=== PATIENT | male | born 1950 | race Caucasian/White ===

== ENCOUNTER 2019-01-09 09:07 | Outpatient (CLI) | payer BC, SELFPAY ==
[2019-01-09 12:54] LABS: Anion Gap 7.2 mmol/L (3-11); BUN 18 mg/dL (7-18); CO2 30.8 mmol/L (21.0-32.0); CREATININE 1.05 mg/dL (0.70-1.30); Calcium 9.4 mg/dL (8.5-10.1); Chloride 98 mmol/L (98-107); Cholesterol 186 mg/dL (50-200); Glucose 142 mg/dL (70-100); HDL Cholesterol 26 mg/dL (40-60); LDL CHOLESTEROL 138 mg/dL (<100); Potassium 4.3 mmol/L (3.5-5.1); Sodium 136 mmol/L (136-145); Triglyceride 169 mg/dL (30-150)
[2019-01-10 13:02] LABS: Lyme Ab w Rflx to Lyme Confirm Negative
== END 2019-01-09 09:27 ==
PROVIDERS: PCP Family Medicine; Visit Provider Family Medicine
DX: I10 Essential (primary) hypertension (principal); W57.XXXA Bitten or stung by nonvenomous insect and other nonvenomous arthropods, initial encounter; T14.8XXA Other injury of unspecified body region, initial encounter
CPT/HCPCS: 36415; 80048; 80061; 83721; 86618

== ENCOUNTER 2020-09-02 04:47 | Outpatient (CLI) | payer MEDICARE, SELFPAY ==
[2020-09-02 07:55] LABS: Hemoglobin A1C 6.2 % (<5.7)
[2020-09-02 08:45] LABS: Calculated LDL 160 mg/dL (<100); Cholesterol 213 mg/dL (<200); HDL Cholesterol 27 mg/dL (40-60); Triglyceride 134 mg/dL (<150)
== END 2020-09-02 05:07 ==
PROVIDERS: PCP Nurse Practitioner; Visit Provider Nurse Practitioner
DX: R73.03 Prediabetes (principal); I10 Essential (primary) hypertension
CPT/HCPCS: 36415; 80061; 83036

== ENCOUNTER 2020-09-22 01:53 | Outpatient (CLI) | payer MEDICARE, SELFPAY ==
--- NOTE | 2020-09-22 06:30 | DI.US_ITS ---
APPROVED REPORT EXAM: Comprehensive 2D, Doppler, and color-flow Echocardiogram Patient Location: Out-Patient [employer] Representative: Kelley Cummings RDCS (AE) Indications: Edema, HTN Other Information Study Quality: Adequate Conclusion Left Ventricle : The left ventricle is normal size. The left ventricular systolic function is normal. The left ventricular ejection fraction is within the normal range. There is normal left ventricular wall thickness. There is normal LV segmental wall motion. The left ventricular diastolic function is normal. LVEF is 58%. Right Ventricle : The right ventricle is normal size. The right ventricular systolic function is norm al. The RVSP is 33.2mmHg. Atria : The left atrium size is normal. The right atrium size is normal. Aortic Valve : The aortic valve is normal in structure. Aortic valve is trileaflet. Mild aortic regur gitation. There is no aortic valvular stenosis. Mitral Valve : Moderate mitral annular calcification. Mild mitral regurgitation. No evidence of nick l valve stenosis. Great Vessels : The aortic root is normal in size. The ascending aorta is normal in size. Aortic arch is normal in caliber. IVC is normal in size and collapses >50% with inspiration. Wall motion Left Ventricle The left ventricle is normal size. The left ventricular systolic function is normal. The left ventric ular ejection fraction is within the normal range. There is normal left ventricular wall thickness. T here is normal LV segmental wall motion. The left ventricular diastolic function is normal. There is no ventricular septal defect visualized. LVEF is 58%. Right Ventricle The right ventricle is normal size. The right ventricular systolic function is normal. The RVSP is 33 .2mmHg. Atria The left atrium size is normal. The right atrium size is normal. The interatrial septum is intact wit h no evidence for an atrial septal defect. Aortic Valve The aortic valve is normal in structure. Aortic valve is trileaflet. There is no aortic valvular sten osis. Mild aortic regurgitation. Mitral Valve Moderate mitral annular calcification. No evidence of mitral valve stenosis. Mild mitral regurgitatio n. Tricuspid Valve The tricuspid valve is normal in structure. There is no tricuspid valve stenosis. Trace tricuspid reg urgitation. Pulmonic Valve The pulmonary valve is normal in structure. There is no pulmonic valvular stenosis. There is no pulmo gary valvular regurgitation. Great Vessels The aortic root is normal in size. The ascending aorta is normal in size. Aortic arch is normal in ca liber. IVC is normal in size and collapses >50% with inspiration. Pericardium There is no pericardial effusion. 2D Dimensions IVSD d PLAX 1.01 cm M: 0.6-1.2 LV Vol A2C d MOD 181.6 mL LVPW d PLAX 1.04 cm M: 0.6 - 1.2 LV Vol A4C d MOD 104.7 mL LVID d PLAX 4.52 cm M: 4.2 - 5.8 LA vol/ BSA A2C s A-L 26.3 mL/m2 LVDs 3.10 cm M: 2.5 - 4.0 LA vol/ BSA A4C s A-L 24.0 mL/m2 Ao Root d 2.60 cm M: 3.1 - 3.7 LA Vol/ BSA Biplane s A-L 26.3 mL/m2 RA Area A4C 16.81 cm2 LA Area A4C s MOD 18.13 cm2 RA Vol/ BSA A4C s A-L 21.3 mL/m2 LA Area A2C s MOD 19.83 cm2 Ao Asc Diam d 3.42 cm M: 2.6 - 3.4 LV EF A4C MOD 58.5 % LV EF Teichholz 58.9 % LV EF A2C MOD 58.8 % LVEF (Pereira's) 57.53 % M: 52 - 72 LV EF Biplane MOD 57.5 % LV Volume 109.24 mL M: 62 - 150 SV 86.18 mL LV Volume Index 50.11 mL/m2 M: 34 - 74 SV Index 39.52 mL/m2 LV Vol Biplane MOD 149.8 mL FS 31.05 % M-Mode TAPSE 3.10 cm (M/F) >1.7 LV Diastology MV E' medial 0.081 (>0.07 m/s) E/A Ratio 0.9 LV E/e MED 10.75 (<14) MV E Vmax 0.87 (0.4-1.3 m/s) MV E' lateral 0.094 (>0.1 m/s) MV A Vmax 0.95 (0.4-1.3 m/s) LV E/e LAT 9.20 (<14) MV E/A Ratio 0.89 MV E/E' medial 10.76 MV E/E' lateral 9.22 Aortic Valve LVOT Vmax 1.44 m/s ABIGAIL 2.04 cm2 LVOT Mean Asad. 0.89 m/s AR DT 1688 msec LVOT Peak Grad 8.2 mmHg AR PHT 490 msec LVOT Mean Grad 3.8 mmHg LVOT VTI 0.306 m LVOT Diam s 1.81 cm AoV Vmax 1.81 m/s Velocity Ratio 0.79 AoV Mean Asad. 1.12 m/s AoV Peak Grad 13.1 mmHg AoV Mean Grad 5.9 mmHg AoV VTI 0.330 m Mitral Valve MV DT 229 (160-240 msec) MR Vmax 4.72 m/s MV PHT 66 msec MR VTI 1.442 m MV Area PHT 3.31 cm2 MR Peak Grad 89.0 mmHg MV VTI 0.311 m MR Mean Grad 70.5 mmHg MV VTI Annulus 0.325 m MR PISA Radius 0.54 cm MR EROA 0.13 cm2 MR Aliasing Velocity 0.35 m/s MR PISA 1.80 cm2 Pulmonary Valve PV Vmax 1.10 (0.5-1.5 m/s) RVOT Peak Gr. 3.72 mmHg PV Peak Grad 4.9 mmHg RVOT Mean Gr. 2.10 mmHg PV Mean Grad 2.5 mmHg RVOT VTI 0.172 m PV VTI 0.218 m RVOT Vmax 0.96 m/s Tricuspid Valve TR Peak Grad 30.2 mmHg TR Vmax 2.75 m/s RA Pressure 3.00 mmHg RVSP (TR) 33.2 mmHg
== END 2020-09-22 02:13 ==
PROVIDERS: PCP Nurse Practitioner; Visit Provider Nurse Practitioner
DX: I10 Essential (primary) hypertension (principal); I08.0 Rheumatic disorders of both mitral and aortic valves
CPT/HCPCS: 93306

== ENCOUNTER 2020-12-12 21:00 | Inpatient (IN) | payer MEDICARE, SELFPAY ==
[2020-12-12] VITALS (29 sets, daily range): BP systolic 105–164; BP diastolic 52–124; PULSE 103–125; RESP 8–43; TEMP 36.2; O2SAT 71–98
--- NOTE | 2020-12-12 21:00 | RT.EKG_ITS ---
APPROVED REPORT Exam: Resting ECG Patient Location: E HR:115 bpm ECG Measurements Heart Rate 115 AXIS MI 166 P 0 QRSd 103 QRS 44 QT 329 T 65 QTc 456 Conclusion Sinus tachycardia...rate> 99 Probable left atrial enlargement...P >50mS, <-0.10mV V1 Probable anterior infarct, old...Q >40mS, V2-V5 Borderline ST depression, anterolateral leads...ST <-0.07mV, I aVL V2-V6 Physician: Rate 115, sinus tachycardia, intervals unremarkable, Q-wave is present in lead II, V5 and V6. No chauncey or EKG for comparison. No evidence of STEMI. No significant ST elevation or depression.
--- NOTE | 2020-12-12 21:00 | DI.CT_ITS ---
EXAM: CT CHEST PE CTA CLINICAL HISTORY: hypoxic, sob. TECHNIQUE: Imaging Protocol: Axial CT angiography was performed with multi-slice acquisition and mu lti-planar and/or 3D reconstructions. CONTRAST MATERIAL: Intravenous: Omnipaque 350 Contrast volume:100 mL COMPARISON: CR,XR XR PORTABLE CHEST AP from 12/12/2020 CR,XR XR PORTABLE CHEST AP from 12/12/2020 FINDINGS: The examination is limited due to patient motion artifact. Tracheobronchial tree: Patent where visualized. Pulmonary parenchyma: There is a multifocal predominantly peripheral ground-glass infiltrate in the l ungs. No architectural distortion. Atelectasis and/or scarring in the lung bases. Pulmonary Arteries: No evidence of filling defect to suggest pulmonary emboli. The examination is jose alejandro ewhat limited due to patient motion artifact. Distal pulmonary emboli cannot be reliably excluded. Mediastinum and Bree: There are enlarged mediastinal and hilar lymph nodes. The largest is in the pelayo bcarinal region and measures 2.3 cm. Visualized thyroid gland: Unremarkable. Pleura: Small left pleural effusion. No pneumothorax. Heart: The heart is not dilated. No coronary artery calcifications are seen. Small pericardial effusi on. No evidence of right heart strain. Aorta: Thoracic aorta non-dilated. Mild atherosclerosis. No dissection. Upper abdomen: Unremarkable. Soft tissues: Unremarkable. Bones: Degenerative changes in the spine. IMPRESSION: 1. No definite evidence of central pulmonary embolism. Evaluation for pulmonary embolic disease dist ally is limited by the patient motion artifact. 2. Ground-glass predominantly peripheral infiltrates which are nonspecific but can be seen with atypi stephania pneumonia. Please correlate clinically. 3. Small pleural effusion. 4. Enlarged mediastinal and hilar lymph nodes which are nonspecific. This may be reactive. RADIATION DOSE DELIVERED: 616.74mGy.cm Total DLP DATA REPOSITORY: All CT scans at this facility are submitted to the National Radiology Data Registry (NRDR) Dose Index Registry (DIR) with the [employer] (ACR). RADIATION OPTIMIZATION: All CT scans at this facility use at least one of these dose optimization te chniques: automated exposure control; mA and/or kV adjustment per patient size (includes targeted exa ms where dose is matched to clinical indication); or iterative reconstruction.
--- NOTE | 2020-12-12 21:00 | DI.RAD_ITS ---
EXAM: XR PORTABLE CHEST AP CLINICAL HISTORY: severe sob w/ hypoxia TECHNIQUE: 2D digital imaging was performed. COMPARISON: No exams were available for comparison FINDINGS: MEDIASTINUM: Normal. HEART: Normal. PULMONARY VASCULATURE: Normal. LUNGS: There are patchy ground-glass opacities in both lungs. No focal consolidating infiltrate is s een. PLEURAL SPACE: No pleural effusion or pneumothorax. BONE:Within normal limits for the patient's age. OTHER FINDINGS:Normal. IMPRESSION: Patchy ground-glass opacities suspicious for atypical pneumonia. A follow-up examination is suggeste d to document resolution. DATA REPOSITORY: RADIATION DOSE DELIVERED:
--- NOTE | 2020-12-12 21:12 | W.ED.GENAD ---
Discharge Plan Disposition Patient Disposition: [facility] INPATIENT Condition: Improving Discharge Details Chief Complaint: SOB Clinical Impression: Acute respiratory distress, Atypical pneumonia, Hypoxemia, Mild reactive airways disease, Acute hypokalemia Primary Care Provider: Ryanne Sorensen ED Provider: Willian Rangel Home Meds and New Rx's Prescriptions: No Action atorvastatin 40 mg tablet 40 mg PO DAILY Qty: 90 RF: 3 multivitamin with minerals [One Daily Men's 50+] 1 EACH tablet 1 ea PO DAILY RF: 0 chlorthalidone 25 mg tablet 25 mg PO DAILY Qty: 90 RF: 4 amlodipine 10 mg tablet 10 mg PO DAILY Qty: 90 RF: 3 lisinopril 40 mg tablet 40 mg PO DAILY Qty: 90 RF: 3 Medical Decision Making 70-year-old male with a past medical history of hypertension, high cholesterol, who has never smoked, but does have a who smokes outside of the house, presents today for severe shortness of breath. Patient states that over the last few days he has had very mild not exertional shortness of breath in conjunction with mild intermittent cough which she describes as chronic. However this evening at about 2 PM he became profoundly and suddenly short of breath with notable difficulty breathing. He denies any chest pain, chest tightness, or chest heaviness. He denies ever having had experiences like this before. He denies any history of lung disease. Family history is positive for lung cancer. He denies any tearing or ripping sensation. He denies any other aggravating or relieving factors otherwise. He has received his first Covid shot. No other complaints at this time. No other modifying factors. Physical exam demonstrates notable work of breathing, nearly absent breath sounds throughout, he demonstrates a good decision pulse oximetry plan with an initial reading in the low 70s with a significant work of breathing. 10 L of O2 via nasal cannula were started, and gradual improvement and increased to the 90s with this. Differential is broad, with no history of lung disease it makes COPD/asthma slightly less likely, but still notably on the differential with his history of his smoking. Covid, PE, and less likely CHF is also on the differential. We will evaluate for these etiologies, monitor closely, start the patient on BiPAP, give nebs and Decadron, monitor closely and assess.. 9:21 PM Review of echocardiogram from 3 months ago demonstrates a notably unremarkable echo at that time, no evidence of heart failure, aneurysm, or other significant abnormality. RVSP was slightly elevated at 33. Also, I did speak with his , and his Covid vaccine was just 3 days ago. 11:23 PM CTA negative for pulmonary embolism or dissection. Patchy groundglass opacities concerning for atypical pneumonia are present. Laboratory work-up is not overly concerning. VBG is stable, mild white count, mild left shift with mild lymphopenia. Covid test negative, flu test negative. Potassium 3.1, we have corrected this with 20 of IV potassium 40 of p.o. potassium. BNP normal, no evidence of failure. Troponin normal, EKG unremarkable. Symptoms at this time appear consistent with atypical versus viral pneumonia. After breathing treatments the patient had a notable improvement of his respiratory effort. After Decadron and breathing treatments his oxygenation and respiratory effort improved and he is now on 2 L of oxygen rather than the initial 10 L of supplemental oxygen. Suspect a component of reactive airway disease in conjunction with atypical pneumonia. Patient did not tolerate the BiPAP, and so did not actually use a BiPAP at all. Patient has been started on Rocephin and doxycycline for atypical coverage. Discussed the case with the patient's family/, as well as the hospitalist Dr. Bull. All parties agree with the plan. We will admit for continued antibiotics, monitoring. I have extensively reviewed the treatment plan with the patient. I have addressed all patient concerns at this time. I have also discussed the plan with the admitting physician and they agree with the current assessment and plan and have agreed to assume responsibility for the patient. All parties demonstrate verbal understanding and agreement with our assessment and plan at this time. The documentation in this chart was dictated using [employer] dictation software. Please excuse any dictation errors. EKG 21: 08 Rate 115, sinus tachycardia, intervals unremarkable, Q-wave is present in lead II, V5 and V6. No prior EKG for comparison. No evidence of STEMI. No significant ST elevation or depression. FINDINGS: Lungs: Irregular ground-glass opacities are noted within both lung. The right hemidiaphragm is partially obscured. Pleural spaces: Unremarkable. No pleural effusion. No pneumothorax. Heart/Mediastinum: Unremarkable. No cardiomegaly. Bones/joints: Unremarkable. IMPRESSION: Patchy ground-glass opacities in both lungs suspicious for atypical pneumonia. Follow-up until clear is recommended. Thank you for allowing us to participate in the care of your patient. Dictated and Authenticated by: Lupillo Saul MD 12/12/2020 9:29 PM Eastern Time ([place] & [place]) IMPRESSION: 1. Patchy ground-glass opacities in both lungs in a peripheral upper lobe predominant distribution. These findings are nonspecific and can be seen in the setting of apical pneumonia, other etiologies are not excluded. 2. No evidence of central pulmonary embolism but evaluation distal to the lobar vessels is markedly limited due to motion artifact, small pulmonary emboli cannot be reliably excluded. 3. Trace bilateral pleural effusions, left larger than right. 4. Borderline enlarged mediastinal and hilar lymph nodes, nonspecific, likely reactive. Thank you for allowing us to participate in the care of your patient. Dictated and Authenticated by: Mariana Hadley MD 12/12/2020 10:48 PM Eastern Time ([place] & [place]) HPI General Date/Time Provider Initiated Documentation: 12/12/20 21:01. HPI Narrative: 70-year-old male with a past medical history of hypertension, high cholesterol, who has never smoked, but does have a who smokes outside of the house, presents today for severe shortness of breath. Patient states that over the last few days he has had very mild not exertional shortness of breath in conjunction with mild intermittent cough which she describes as chronic. However this evening at about 2 PM he became profoundly and suddenly short of breath with notable difficulty breathing. He denies any chest pain, chest tightness, or chest heaviness. He denies ever having had experiences like this before. He denies any history of lung disease. Family history is positive for lung cancer. He denies any tearing or ripping sensation. He denies any other aggravating or relieving factors otherwise. He has received his first Covid shot. No other complaints at this time. No other modifying factors. Related Data Home Medications Medication Instructions Recorded Confirmed multivitamin with minerals [One 1 ea PO DAILY 07/31/13 12/12/20 Daily] atorvastatin 40 mg tablet 40 mg PO DAILY #90 tab 09/29/20 12/12/20 amlodipine 10 mg tablet 10 mg PO DAILY #90 tab-cap 10/12/20 12/12/20 chlorthalidone 25 mg tablet 25 mg PO DAILY #90 tab 10/12/20 12/12/20 lisinopril 40 mg tablet 40 mg PO DAILY #90 tab-cap 10/12/20 12/12/20 Previous Rx's Medication Instructions Recorded atorvastatin 40 mg tablet 40 mg PO DAILY #90 tab 09/29/20 amlodipine 10 mg tablet 10 mg PO DAILY #90 tab-cap 10/12/20 chlorthalidone 25 mg tablet 25 mg PO DAILY #90 tab 10/12/20 lisinopril 40 mg tablet 40 mg PO DAILY #90 tab-cap 10/12/20 Allergies Allergy/AdvReac Type Severity Reaction Status Date / Time No Known Allergies Allergy Verified 12/12/20 21:23 Review of Systems All systems reviewed & are unremarkable except as noted in HPI and below PFSH Medical History Acute type A viral hepatitis (08/21/13) Surgical History Excision, Lipoma Family History Mother , 72 Lung cancer Father , 82 Heart disease Sister Depression Brother No problems noted. Sister No problems noted. Sister No problems noted. Son No problems noted. Daughter No problems noted. Social History Smoking/Tobacco Use Status: Former Tobacco Use Quit Date: 05/15/87 Second Hand Exposure: Yes Smoking risk assessment performed?: Yes Alcohol Intake: current Alcohol Intake frequency: 0-2 drinks per day Alcohol type: beer Drug use: Never Substance use type: does not use Details: states lasyt drink in september Household members: spouse and children Housing: house Do you need help understanding health information?: Never Pets and animals: Yes Pets and animals: dog(s) and horse(s) Sexually active: Yes Do you think of yourself as: straight/heterosexual Current gender identity: male What is your relationship status?: How often do you talk on the phone with friends or family?: once per week How often do you get together with friends or relatives?: once per week How often do you attend taoist or taoism services?: 1-3 times per year Do you belong to any clubs or organized social groups?: no Panel score (0-1 are the most socially isolated patients): 1 What type of physical activity do you participate in: none Dennise/Christianity: [employer] Special dennise needs: No Seatbelt use: sometimes Helmet use: No Drive intox or ride w/intox 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 3.ENT: Atraumatic external nose and ears. Moist MM. Neck: Symmetric, trachea midline, No thyromegaly. 4.CVS: +S1/S2, No murmurs or gallops. Peripheral pulses 2+ and equal in all extremities. Brisk capillary refill in all extremities. Radial pulses +2 bilaterally. 5.RESP: Notably labored respiratory effort, nearly absent breath sounds throughout, no wheezes rales or rhonchi secondary to nearly absent breath sounds throughout. No asymmetric chest movement, or hollow tympany. 6.GI: Soft, Nontender/Nondistended, No hepatosplenomegaly. No guarding or rebound. 7.MSK: Normocephalic/Atraumatic, Extremities w/o deformity or ttp No cyanosis or clubbing, Normal movement of all extremities, no calf tenderness, pretibial edema. 8.Skin: Warm, Dry. No rashes or lesions. 9.Neuro: trouble locater II-XII grossly intact. Sensation grossly intact, no focal neurologic deficits. 10.Psych: (AAO) x3. Appropriate mood and affect
[2020-12-12 21:25] LABS: BE (Venous) 0 mmol/L (-2-3); HCO3 (Venous) 26 mmol/L (23-28); O2 Sat (Venous) 87 %; TCO2 (Venous) 24 mmol/L (24-29); pCO2 (Venous) 51 mmHg (41-51); pH (Venous) 7.31 (7.31-7.41); pO2 (Venous) 58 mmHg
[2020-12-12 21:27] LABS: Abs Immature Grans 0.07 10^3/uL (0.0-0.06); Absolute Basophil Count 0.03 10^3/uL (0.0-0.2); Absolute Eosinophil Count 0.36 10^3/uL (0.0-0.7); Absolute Lymphocyte Count 0.96 10^3/uL (1.2-3.4); Absolute Monocyte Count 0.15 10^3/uL (0.1-0.8); Absolute Neutrophil Count 9.71 10^3/uL (1.2-6.7); Basophils % 0.3; Eosinophils % 3.2; HCT 42.2 % (40.0-50.0); HGB 13.5 g/dL (13.5-17.5); Immature Grans % 0.6; Lymphocytes % 8.5; MCH 26.5 pg (27.0-33.0); MCV 82.7 fL (80-95); Monocytes % 1.3; Neutrophils % 86.1; Nucleated RBC 0 %; Platelet Count 212 10^3/uL (130-400); RDW-SD 42.5 fL; WBC 11.28 10^3/uL (4.4-10.8)
[2020-12-12] MEDS: Dexamethasone 10 MG/ML VIAL IVP (21:30)
[2020-12-12] MEDS: Albuterol/Ipratropium 3 ML UPD VIAL 9 ML UPD (21:30)
--- NOTE | 2020-12-12 21:30 | DI.VRAD_ITS ---
PROCEDURE INFORMATION: Exam: XR Chest Exam date and time: 12/12/2020 9:23 PM Age: 70 years old Clinical indication: Shortness of breath; Patient HX: Severe SOB w/ hypoxia TECHNIQUE: Imaging protocol: XR of the chest Views: 1 view. COMPARISON: No relevant prior studies available. FINDINGS: Lungs: Irregular ground-glass opacities are noted within both lung. The right hemidiaphragm is partially obscured. Pleural spaces: Unremarkable. No pleural effusion. No pneumothorax. Heart/Mediastinum: Unremarkable. No cardiomegaly. Bones/joints: Unremarkable. IMPRESSION: Patchy ground-glass opacities in both lungs suspicious for atypical pneumonia. Follow-up until clear is recommended. Dictated and Authenticated by: Lupillo Saul MD. Ordering:YANCY Dorsey MD
[2020-12-12] MEDS: LORazepam 2 MG/ML VIAL 0.5 MG IVP (21:40)
[2020-12-12 21:47] LABS: ALT 37 U/L (16-63); AST 18 U/L (15-37); Albumin 3.1 g/dL (3.4-5.0); Alkaline Phosphatase 209 U/L (46-116); Anion Gap 8.7 mmol/L (3-11); BUN 21 mg/dL (7-18); Bilirubin, Total 0.7 mg/dL (0.2-1.0); CO2 27.3 mmol/L (21.0-32.0); CREATININE 1.6 mg/dL (0.70-1.30); Calcium 8.5 mg/dL (8.5-10.1); Chloride 99 mmol/L (98-107); Estimated GFR 42.95 (mL/min/1.73m2); Glucose 226 mg/dL (74-106); NT-proBNP 168 pg/mL (<300); Potassium 3.1 mmol/L (3.5-5.1); Sodium 135 mmol/L (136-145); Total Protein 8.4 g/dL (6.4-8.2)
[2020-12-12 21:48] LABS: INR 1.1 (0.9-1.1); PTT Activated 22.3 sec (21.0-27.5); Prothrombin Time 11.2 sec (9.3-11.0); Troponin I < 0.05 ng/mL (<0.06)
[2020-12-12 22:05] LABS: COVID-19 PCR Negative (Negative); Influenza A PCR Negative (Negative); Influenza B PCR Negative (Negative); RSV PCR Negative (Negative)
--- NOTE | 2020-12-12 22:07 | RESPIRATORY ---
12/12/20-Pt arrived via private car with SOB. Pt was placed on 10 LPM NC by RN as SPO2 71% on arrival. Pt trialed on Marilyn Bipap for WOB. Pt panicked and ripped mask off. Post 9 mL's Duoneb via [employer] . Pt titrated to 3 LPM NCSPO2 96%.
[2020-12-12 22:09] LABS: Magnesium 1.8 mg/dL (1.8-2.4)
[2020-12-12] MEDS: Omnipaque 350 MG/ML 100 ML BTL IJ (22:26)
[2020-12-12] MEDS: Normal Saline - Diluent 50 ML VIAL IV (22:27)
[2020-12-12] MEDS: POTASSIUM CHLORIDE 20 MEQ/100 ML BAG 50 MEQ IVPB (22:37)
--- NOTE | 2020-12-12 22:48 | DI.VRAD_ITS ---
PROCEDURE INFORMATION: Exam: CT Angiography Chest With Contrast Exam date and time: 12/12/2020 10:21 PM Age: 70 years old Clinical indication: Shortness of breath; Patient HX: SOB, hypoxic TECHNIQUE: Imaging protocol: Computed tomographic angiography of the chest with contrast. 3D rendering (Not supervised by radiologist): MIP and/or 3D reconstructed images were created by the technologist. Contrast material: OMNIPAQUE 350; Contrast volume: 100 ml; Contrast route: INTRAVENOUS (IV); COMPARISON: CR XR PORTABLE CHEST AP 12/12/2020 9:07 PM FINDINGS: Pulmonary arteries: The caliber of the main pulmonary artery is within normal limits. No saddle embolus. No suspicious filling defect to the level of the lobar vessels. However, motion artifact markedly limits evaluation distal to the lobar vessels and numerous filling defects likely represent artifact, small pulmonary emboli cannot be reliably excluded. Aorta: Unremarkable. No aortic aneurysm. No aortic dissection. Lungs: The central airways are patent. Dependent atelectasis in both lower lobes. In addition, there are peripheral predominant ground-glass opacities predominantly affecting the upper lobes, nonspecific. Mild linear atelectasis and/or scarring in the right middle lobe. Pleural spaces: Trace bilateral pleural effusions, left greater than right. No pneumothorax. Heart: Normal heart size with small to moderate pericardial effusion. No evidence of right heart strain. Lymph nodes: Borderline enlarged hilar and subcarinal lymph nodes, nonspecific. Bones/joints: Multilevel degenerative changes of the spine. Soft tissues: Unremarkable. IMPRESSION: 1. Patchy ground-glass opacities in both lungs in a peripheral upper lobe predominant distribution. These findings are nonspecific and can be seen in the setting of apical pneumonia, other etiologies are not excluded. 2. No evidence of central pulmonary embolism but evaluation distal to the lobar vessels is markedly limited due to motion artifact, small pulmonary emboli cannot be reliably excluded. 3. Trace bilateral pleural effusions, left larger than right. 4. Borderline enlarged mediastinal and hilar lymph nodes, nonspecific, likely reactive. Dictated and Authenticated by: Mariana Hadley MD. Ordering:YANCY Dorsey MD
[2020-12-12] MEDS: Potassium Chloride 20 MEQ TABCR 40 MEQ PO (23:03)
[2020-12-12] MEDS: Normal Saline 1,000 ML 150 ML IV (23:03)
--- NOTE | 2020-12-12 23:06 | DI.VRAD_ITS ---
Addendum created by Mariana Hadley MD on 12/12/2020 11:05:58 PM EST: Findings were discussed with ANA CEJA at 12/12/2020 11:04 PM EST. This addendum also serves to correct a voice recognition error in the 1st impression. The phrase apical pneumonia should read atypical pneumonia. Initial report created on 12/12/2020 10:48:16 PM EST: PROCEDURE INFORMATION: Exam: CT Angiography Chest With Contrast Exam date and time: 12/12/2020 10:21 PM Age: 70 years old Clinical indication: Shortness of breath; Patient HX: SOB, hypoxic TECHNIQUE: Imaging protocol: Computed tomographic angiography of the chest with contrast. 3D rendering (Not supervised by radiologist): MIP and/or 3D reconstructed images were created by the technologist. Contrast material: OMNIPAQUE 350; Contrast volume: 100 ml; Contrast route: INTRAVENOUS (IV); COMPARISON: CR XR PORTABLE CHEST AP 12/12/2020 9:07 PM FINDINGS: Pulmonary arteries: The caliber of the main pulmonary artery is within normal limits. No saddle embolus. No suspicious filling defect to the level of the lobar vessels. However, motion artifact markedly limits evaluation distal to the lobar vessels and numerous filling defects likely represent artifact, small pulmonary emboli cannot be reliably excluded. Aorta: Unremarkable. No aortic aneurysm. No aortic dissection. Lungs: The central airways are patent. Dependent atelectasis in both lower lobes. In addition, there are peripheral predominant ground-glass opacities predominantly affecting the upper lobes, nonspecific. Mild linear atelectasis and/or scarring in the right middle lobe. Pleural spaces: Trace bilateral pleural effusions, left greater than right. No pneumothorax. Heart: Normal heart size with small to moderate pericardial effusion. No evidence of right heart strain. Lymph nodes: Borderline enlarged hilar and subcarinal lymph nodes, nonspecific. Bones/joints: Multilevel degenerative changes of the spine. Soft tissues: Unremarkable. IMPRESSION: 1. Patchy ground-glass opacities in both lungs in a peripheral upper lobe predominant distribution. These findings are nonspecific and can be seen in the setting of apical pneumonia, other etiologies are not excluded. 2. No evidence of central pulmonary embolism but evaluation distal to the lobar vessels is markedly limited due to motion artifact, small pulmonary emboli cannot be reliably excluded. 3. Trace bilateral pleural effusions, left larger than right. 4. Borderline enlarged mediastinal and hilar lymph nodes, nonspecific, likely reactive. Dictated and Authenticated by: Mariana Hadley MD. Ordering:YANCY Dorsey MD
[2020-12-12] MEDS: cefTRIAXone 1 GM/50 ML BAG IVPB (23:10)
--- NOTE | 2020-12-12 23:20 | HPE_ITS ---
Date of service: 12/12/20 Time of Service: 23:20 Assessment and Plan Assessment and plan (1) Atypical pneumonia: Start date: 12/12/20 Status: Acute Assessment and plan: This is a 70-year-old gentleman with acute onset of respiratory symptoms with severe hypoxemia and marked decrease in air movement. He responded well to steroids IV and nebulizer treatments. He will be started on IV Rocephin and doxycycline with follow-up imaging as indicated. He was neg ative for Covid, flu and RSV but will be continued on oral dexamethasone with consideration for repeat Covid testing if indicated. Patient is a full code. (2) Hypoxemia: Start date: 12/12/20 Status: Acute Assessment and plan: Acute onset hypoxemia with negative CT for PE but significant patchy infiltrates consistent with probable viral pneumonia. Continue O2 supplement with patient responding to nebulizer treatment and steroids. (3) Bronchospasm with bronchitis, acute: Start date: 12/12/20 Status: Acute Assessment and plan: Acute onset with response to bronchodilators. Continue bronchodilators as needed. Respiratory therapy consultation as indicated. (4) Prediabetes: Status: Chronic Assessment and plan: Patient does have hyperglycemia and this may be exacerbated by steroid use. Glucometers before meals and at bedtime with short acting insulin coverage as indicated. Long-term patient to work on diet and exercise with weight loss over his trunk. History of Present Illness History of Present Illness Chief Complaint: Sudden onset shortness of breath with chronic cough Narrative: This is a 70-year-old male patient who had sudden onset of shortness of breath with hypoxemia the early afternoon prior to admission. He reported to the ED for evaluation was found to be hypoxemic and with little air movement. He was treated with dexamethasone IV and nebulizer treatments with improvement of his oxygenation requiring much less O2 supplement per nasal cannula. He was trialed on BiPAP initially but did not tolerate this treatment. He is a previous smoker having quit in 1985 but his continues to smoke with secondary smoke exposure. He is overweight and deconditioned. He did recently receive his first Covid 19 immunizations injection. He denies any fever or chills but does have a chronic cough. The cough is nonproductive. Evaluation in the ED did reveal patchy infiltrates of the lung consistent with atypical or viral pneumonia and is Covid screening test along with flu and RSV were negative. He has had no exposure to Covid. He denies any chest pain or palpitations. At the time I saw the patient he was improved and able to give accurate history without respiratory distress. His chronic medical problems overall appears stable. See ED note which was reviewed for history and findings. Patient did have a negative CTA for pulmonary emboli. He denies any peripheral edema having edema recently improve off daily beer and with better diet. Review of Systems Narrative: 13 point review of systems otherwise unrevealing or stable. Patient is overweight especially over his trunk but this has slightly improved with lifestyle changes recently. [facility] Medical History Acute type A viral hepatitis (08/21/13) Surgical History Excision, Lipoma Family History Mother , 72 Lung cancer Father , 82 Heart disease Sister Depression Brother No problems noted. Sister No problems noted. Sister No problems noted. Son No problems noted. Daughter No problems noted. Social History Smoking/Tobacco Use Status: Former Tobacco Use Quit Date: 05/15/87 Second Hand Exposure: Yes Smoking risk assessment performed?: Yes Alcohol Intake: current Alcohol Intake frequency: 0-2 drinks per day Alcohol type: beer Drug use: Never Substance use type: does not use Details: states lasyt drink in september Household members: spouse and children Housing: house Do you need help understanding health information?: Never Pets and animals: Yes Pets and animals: dog(s) and horse(s) Sexually active: Yes Do you think of yourself as: straight/heterosexual Current gender identity: male What is your relationship status?: How often do you talk on the phone with friends or family?: once per week How often do you get together with friends or relatives?: once per week How often do you attend mandaen or confucianist services?: 1-3 times per year Do you belong to any clubs or organized social groups?: no Panel score (0-1 are the most socially isolated patients): 1 What type of physical activity do you participate in: none Dennise/Hoahaoism: Nondenominational Special dennise needs: No Seatbelt use: sometimes Helmet use: No Drive intox or ride w/intox non cdl driver: No Do you feel safe at home: Yes Do you feel safe in your relationship?: Yes Meds Home Medications and Allergies Allergies Allergy/AdvReac Type Severity Reaction Status Date / Time No Known Allergies Allergy Verified 12/12/20 21:23 Home Medications Medication Instructions Recorded Confirmed Type multivitamin with minerals [One 1 ea PO DAILY 07/31/13 12/12/20 History Daily] atorvastatin 40 mg tablet 40 mg PO DAILY #90 tab 09/29/20 12/12/20 Rx amlodipine 10 mg tablet 10 mg PO DAILY #90 tab-cap 10/12/20 12/12/20 Rx chlorthalidone 25 mg tablet 25 mg PO DAILY #90 tab 10/12/20 12/12/20 Rx lisinopril 40 mg tablet 40 mg PO DAILY #90 tab-cap 10/12/20 12/12/20 Rx Exam Narrative Exam Narrative: General: Patient appears appropriate for age, in no acute distress and alert and oriented x3. He is breathing comfortably on low-flow nasal cannula oxygen supplementation. HEENT: Normocephalic, eyes with pupils equal and reactive to light symmetrically, extraocular movement intact and sclera anicteric. Oropharynx with normal, moist mucosa. Neck: Supple without JVD. Back: Stooped posture without CVA tenderness. Lungs: Fair aeration with no focalizing rales or rhonchi. No increased expiratory phase or expiratory wheeze. Heart: Regular rate and rhythm with no appreciable murmurs or gallops. Abdomen: Obese contour, soft and nontender to palpation with no palpable hepatosplenomegaly. Bowel sounds positive in all quadrants. Genitalia/rectal: Exam deferred. Extremities: Nonpitting edema with no cyanosis or clubbing. Joints have fair range of motion. Skin: Normal color, warm and dry. Neuro: Cranial nerves II through XII gross intact, no focalizing motor deficits. Psych: Normal mood and affect with no abnormal thought processes. Remote and recent memory intact. Results Imaging Imaging Studies: Exam: XR Chest Exam date and time: 12/12/2020 9:23 PM Age: 70 years old Clinical indication: Shortness of breath; Patient HX: Severe SOB w/ hypoxia TECHNIQUE: Imaging protocol: XR of the chest Views: 1 view. COMPARISON: No relevant prior studies available. FINDINGS: Lungs: Irregular ground-glass opacities are noted within both lung. The right hemidiaphragm is partially obscured. Pleural spaces: Unremarkable. No pleural effusion. No pneumothorax. Heart/Mediastinum: Unremarkable. No cardiomegaly. Bones/joints: Unremarkable. IMPRESSION: Patchy ground-glass opacities in both lungs suspicious for atypical pneumonia. Follow-up until clear is recommended. Dictated and Authenticated by: Lupillo Saul MD. EXAM: Comprehensive 2D, Doppler, and color-flow Echocardiogram Patient Location: Out-Patient Placement Officer: Kelley Cummings RDCS (AE) Indications: Edema, HTN Other Information Study Quality: Adequate Conclusion Left Ventricle : The left ventricle is normal size. The left ventricular systolic function is normal. The left ventricular ejection fraction is within the normal range. There is normal left ventricular wall thickness. There is normal LV segmental wall motion. The left ventricular diastolic function is normal. LVEF is 58%. Right Ventricle : The right ventricle is normal size. The right ventricular systolic function is normal. The RVSP is 33.2mmHg. Atria : The left atrium size is normal. The right atrium size is normal. Aortic Valve : The aortic valve is normal in structure. Aortic valve is trileaflet. Mild aortic regurgitation. There is no aortic valvular stenosis. Mitral Valve : Moderate mitral annular calcification. Mild mitral regurgitation. No evidence of mitral valve stenosis. Great Vessels : The aortic root is normal in size. The ascending aorta is normal in size. Aortic arch is normal in caliber. IVC is normal in size and collapses >50% with inspiration. Labs Result diagrams: 12/13/20 14:58 12/13/20 07:15 Labs: Laboratory Results - last 24 hr 12/12/20 12/12/20 12/12/20 21:12 21:12 21:12 WBC 11.28 H RBC 5.10 Hgb 13.5 Hct 42.2 MCV 82.7 MCH 26.5 L MCHC 32.0 RDW 14.0 Plt Count 212 MPV 9.0 Immature Gran % 0.6 Neutrophils % 86.1 Lymphocytes % 8.5 Monocytes % 1.3 Eosinophils % 3.2 Basophils % 0.3 Nucleated RBC % 0 Absolute Neutrophils 9.71 H Absolute Lymphocytes 0.96 L Absolute Monocytes 0.15 Absolute Eosinophils 0.36 Absolute Basophils 0.03 PT 11.2 H INR 1.1 APTT 22.3 VBG pH VBG pCO2 VBG pO2 VBG HCO3 VBG Total CO2 VBG O2 Saturation VBG Base Excess Sodium 135 L Potassium 3.1 L Chloride 99 Carbon Dioxide 27.3 Anion Gap 8.7 BUN 21 H Creatinine 1.6 H Estimated GFR/1.73 m2 42.95 Glucose 226 H Calcium 8.5 Magnesium Total Bilirubin 0.7 AST 18 ALT 37 Alkaline Phosphatase 209 H Troponin I < 0.05 NT-Pro-B Natriuret Pep 168 Total Protein 8.4 H Albumin 3.1 L COVID-19 Source SARS-CoV-2 (PCR) Influenza Type A (PCR) Influenza Type B (PCR) RSV (PCR) 12/12/20 12/12/20 12/12/20 21:12 21:12 21:37 WBC RBC Hgb Hct MCV MCH MCHC RDW Plt Count MPV Immature Gran % Neutrophils % Lymphocytes % Monocytes % Eosinophils % Basophils % Nucleated RBC % Absolute Neutrophils Absolute Lymphocytes Absolute Monocytes Absolute Eosinophils Absolute Basophils PT INR APTT VBG pH 7.31 VBG pCO2 51 VBG pO2 58 VBG HCO3 26 VBG Total CO2 24 VBG O2 Saturation 87 VBG Base Excess 0 Sodium Potassium Chloride Carbon Dioxide Anion Gap BUN Creatinine Estimated GFR/1.73 m2 Glucose Calcium Magnesium 1.8 Total Bilirubin AST ALT Alkaline Phosphatase Troponin I NT-Pro-B Natriuret Pep Total Protein Albumin COVID-19 Source Nasopharyx SARS-CoV-2 (PCR) Negative Influenza Type A (PCR) Negative Influenza Type B (PCR) Negative RSV (PCR) Negative Last Vital Signs Temp 36.2 C L 12/12/20 21:16 Pulse 113 H 12/12/20 23:00 Resp 30 H 12/12/20 23:01 BP 106/60 12/12/20 23:00 Pulse Ox 93 12/12/20 23:01 COVID-19 Screening Have you, or household traveled for leisure in last 14 days?: No Had IN PERSON contact w/suspected or confirmed C-19 person: No
[2020-12-12] MEDS: DOXYCYCLINE 100 MG in Normal Saline 100 ML IVPB (23:49)
[2020-12-13] VITALS (18 sets, daily range): BP systolic 124–147; BP diastolic 67–81; PULSE 70–115; RESP 1–22; TEMP 36.5–37.3; O2SAT 95–100
[2020-12-13 00:58] LABS: Troponin I < 0.05 ng/mL (<0.06)
[2020-12-13] MEDS: Normal Saline 1,000 ML 150 ML IV ×2 (01:35→08:33)
[2020-12-13] MEDS: Albuterol/Ipratropium 3 ML UPD VIAL UPD ×4 (01:36→18:37)
[2020-12-13] MEDS: Enoxaparin 40 MG/0.4 ML SYR SC (01:36)
[2020-12-13 07:23] LABS: Abs Immature Grans 0.17 10^3/uL (0.0-0.06); Absolute Basophil Count 0.04 10^3/uL (0.0-0.2); Absolute Monocyte Count 0.82 10^3/uL (0.1-0.8); Basophils % 0.2; Eosinophils % 0.2; HCT 35.1 % (40.0-50.0); HGB 11.2 g/dL (13.5-17.5); Immature Grans % 0.9; Lymphocytes % 2.5; MCH 26.3 pg (27.0-33.0); MCHC 31.9 % (32.0-36.0); MCV 82.4 fL (80-95); MPV 9.4 fL (8.0-11.0); Monocytes % 4.3; Neutrophils % 91.9; Nucleated RBC 0 %; Platelet Count 188 10^3/uL (130-400); RBC 4.26 10^6/uL (4.36-5.78); RDW 14.4 % (11.8-14.1); RDW-SD 42.7 fL; WBC 19.05 10^3/uL (4.4-10.8)
[2020-12-13 07:35] LABS: Absolute Eosinophil Count 0.04 10^3/uL (0.0-0.7); Absolute Lymphocyte Count 0.48 10^3/uL (1.2-3.4); Absolute Neutrophil Count 17.51 10^3/uL (1.2-6.7)
[2020-12-13 07:39] LABS: ALT 35 U/L (16-63); AST 16 U/L (15-37); Albumin 2.5 g/dL (3.4-5.0); Alkaline Phosphatase 152 U/L (46-116); Anion Gap 8.8 mmol/L (3-11); BUN 21 mg/dL (7-18); Bilirubin, Total 0.7 mg/dL (0.2-1.0); CO2 23.2 mmol/L (21.0-32.0); CREATININE 1.5 mg/dL (0.70-1.30); Calcium 7.7 mg/dL (8.5-10.1); Chloride 101 mmol/L (98-107); Estimated GFR 46.27 (mL/min/1.73m2); Glucose 270 mg/dL (74-106); Potassium 4.6 mmol/L (3.5-5.1); Sodium 133 mmol/L (136-145); Total Protein 7.1 g/dL (6.4-8.2)
[2020-12-13] MEDS: Insulin Aspart 300 UNITS/3 ML PEN SC ×3 (08:21→21:40)
[2020-12-13] MEDS: Multivitamin TAB 1 TAB PO (08:21)
[2020-12-13] MEDS: amLODIPine 10 MG TAB PO (08:22)
[2020-12-13] MEDS: Dexamethasone 4 MG TAB 10 MG PO (08:22)
--- NOTE | 2020-12-13 08:59 | PDOC.CMIN ---
- If Service Date Differs Date of service: 12/13/20 Time of Service: 08:59 Care Management Initial Assess REASON FOR HOSPITALIZATION:: Atypical pneumonia PAST MEDICAL HISTORY/PAST SURGICAL HISTORY:: Medical History . Acute type A viral hepatitis (08/21/13). Surgical History . Excision, Lipoma PREVIOUS FUNCTIONAL STATUS/SOCIAL/FAMILY SUPPORTS:: Jens lives in [place], [place] with his and 2 children ages 5 and 8. 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 Noe is independent at baseline and remains active. CURRENT FUNCTIONAL STATUS:: Noe was sitting up in a chair when CM met with him. He was agreeable to conversation and engaged readily with CM. Noe had questions about insurance and the portal and advanced directives which CM answered. Noe was given 2 copies of the [place]. AD forms and will CM offered assist with their completion if Noe wishes. ADVANCE DIRECTIVES:: none on file Has patient been provided with info about the portal/API?: Yes Did the patient sign up for the portal?: No CODE STATUS:: Full Code INSURANCE COVERAGE / FINANCIAL ISSUES:: Medicare CURRENT HOME/COMMUNITY SERVICES/EQUIPMENT:: none PRIMARY CARE PHYSICIAN:: Ryanne Sorensen POTENTIAL DISCHARGE NEEDS:: follow up with PCP and discharge plan of care PATIENT/FAMILY EDUCATION NEEDS:: Discharge plan, limitations, follow up plan, Ask Me Three TRANSPORTATION:: via private vehicle with family PLAN:: Noe will be discharged home with no new services. He will follow up with his PCP and discharge plan of care and transport with family. CM will continue to support Noe and his family and assess for discharge planning concerns.
[2020-12-13] MEDS: DOXYCYCLINE 100 MG in Normal Saline 100 ML IVPB (11:58)
--- NOTE | 2020-12-13 13:47 | W.PM.PROGNOT ---
Date of Service Date of service: 12/13/20 Time of Service: 13:48 Assessment and Plan Assessment and plan (1) Atypical pneumonia: Status: Acute Assessment and plan: Clinically improving on doxycycline/ceftriaxone. Will continue. Obtain sputum culture. COVID-19 ruled out. (2) Bronchospasm with bronchitis, acute: Status: Acute Assessment and plan: As above; Additionally, continue nebs, decadron; add mucinex. I have ordered acapella. (3) Hypoxemia: Status: Resolved Assessment and plan: Not requiring oxygen today. (4) Acute anemia: Status: Acute Assessment and plan: Likely dilutional. However, will hold chemical dvt ppx and check anemia studies. Recheck H/H now. (5) Atypical chest pain: Status: Resolved Assessment and plan: Ruled out for ACS by serial troponins. Will need outpatient stress test. (6) DVT prophylaxis: Status: Acute Assessment and plan: TEDs/SCDS. Hold chemical DVT ppx in presence of anemia which we are working up (7) Discharge planning issues: Status: Acute Assessment and plan: Full code Anticipate discharge home within the next 48 hrs. Subjective Subjective Interval history since last seen: Mr Sellers feels a lot better as far as his breathing but still does not feel back to normal. He is still short of breath. He is having a cough productive of white sputum. He is on room air. He denies dizziness, chest pain now (though he does report a brief episode of chest pain last night). He denies any chest pain now. He has not had a stress test. He denies n/v/abdominal pain. Exam Narrative Exam Narrative: General: Elderly male, sitting in a chair, on room air. HEENT: EOMI, MMM Heart: RRR, no m/r/g, no chest wall tenderness Lungs: CTAB Abdomen: soft, nontender, nondistended Extremities: +1 B edema to ankles (patient's chronic edema) Objective Last Vital Signs Temp 36.5 C 12/13/20 11:20 Pulse 95 H 12/13/20 12:28 Resp 16 12/13/20 12:28 BP 147/68 H 12/13/20 11:20 Pulse Ox 100 12/13/20 12:28 Laboratory Results - last 24 hr 12/12/20 12/12/20 12/12/20 21:12 21:12 21:12 WBC 11.28 H RBC 5.10 Hgb 13.5 Hct 42.2 MCV 82.7 MCH 26.5 L MCHC 32.0 RDW 14.0 Plt Count 212 MPV 9.0 Immature Gran % 0.6 Neutrophils % 86.1 Lymphocytes % 8.5 Monocytes % 1.3 Eosinophils % 3.2 Basophils % 0.3 Nucleated RBC % 0 Absolute Neutrophils 9.71 H Absolute Lymphocytes 0.96 L Absolute Monocytes 0.15 Absolute Eosinophils 0.36 Absolute Basophils 0.03 PT 11.2 H INR 1.1 APTT 22.3 VBG pH VBG pCO2 VBG pO2 VBG HCO3 VBG Total CO2 VBG O2 Saturation VBG Base Excess Sodium 135 L Potassium 3.1 L Chloride 99 Carbon Dioxide 27.3 Anion Gap 8.7 BUN 21 H Creatinine 1.6 H Estimated GFR/1.73 m2 42.95 Glucose 226 H Calcium 8.5 Magnesium Total Bilirubin 0.7 AST 18 ALT 37 Alkaline Phosphatase 209 H Troponin I < 0.05 NT-Pro-B Natriuret Pep 168 Total Protein 8.4 H Albumin 3.1 L COVID-19 Source SARS-CoV-2 (PCR) Influenza Type A (PCR) Influenza Type B (PCR) RSV (PCR) 12/12/20 12/12/20 12/12/20 21:12 21:12 21:37 WBC RBC Hgb Hct MCV MCH MCHC RDW Plt Count MPV Immature Gran % Neutrophils % Lymphocytes % Monocytes % Eosinophils % Basophils % Nucleated RBC % Absolute Neutrophils Absolute Lymphocytes Absolute Monocytes Absolute Eosinophils Absolute Basophils PT INR APTT VBG pH 7.31 VBG pCO2 51 VBG pO2 58 VBG HCO3 26 VBG Total CO2 24 VBG O2 Saturation 87 VBG Base Excess 0 Sodium Potassium Chloride Carbon Dioxide Anion Gap BUN Creatinine Estimated GFR/1.73 m2 Glucose Calcium Magnesium 1.8 Total Bilirubin AST ALT Alkaline Phosphatase Troponin I NT-Pro-B Natriuret Pep Total Protein Albumin COVID-19 Source Nasopharyx SARS-CoV-2 (PCR) Negative Influenza Type A (PCR) Negative Influenza Type B (PCR) Negative RSV (PCR) Negative 12/13/20 12/13/20 12/13/20 00:35 07:15 07:15 WBC 19.05 H D RBC 4.26 L Hgb 11.2 L D Hct 35.1 L MCV 82.4 MCH 26.3 L MCHC 31.9 L RDW 14.4 H Plt Count 188 MPV 9.4 Immature Gran % 0.9 Neutrophils % 91.9 Lymphocytes % 2.5 Monocytes % 4.3 Eosinophils % 0.2 Basophils % 0.2 Nucleated RBC % 0 Absolute Neutrophils 17.51 H Absolute Lymphocytes 0.48 L Absolute Monocytes 0.82 H Absolute Eosinophils 0.04 Absolute Basophils 0.04 PT INR APTT VBG pH VBG pCO2 VBG pO2 VBG HCO3 VBG Total CO2 VBG O2 Saturation VBG Base Excess Sodium 133 L Potassium 4.6 D Chloride 101 Carbon Dioxide 23.2 Anion Gap 8.8 BUN 21 H Creatinine 1.5 H Estimated GFR/1.73 m2 46.27 Glucose 270 H Calcium 7.7 L Magnesium Total Bilirubin 0.7 AST 16 ALT 35 Alkaline Phosphatase 152 H Troponin I < 0.05 NT-Pro-B Natriuret Pep Total Protein 7.1 Albumin 2.5 L COVID-19 Source SARS-CoV-2 (PCR) Influenza Type A (PCR) Influenza Type B (PCR) RSV (PCR)
[2020-12-13] MEDS: guaiFENesin 600 MG TABCR PO ×2 (14:13→20:05)
--- NOTE | 2020-12-13 14:33 | W.INDIABCONS ---
Date of service: 12/13/20 Time of Service: 14:33 Diabetes Inpatient Consult DESCRIPTION/ASSESSMENT: 70 year old male admitted with PNA. BMI indicates class 2 obesity, recently dx with pre DM. Most recent A1C: 6.2% indicating moderately elevated BS. INTERVENTION: Educated pt on how to reduce blood sugars by following lower carb diet and increasing daily activity to meet 150 minutes weekly. Goal of 10% wieght loss in next 6 months. Pt receptive to information. Provided educational materials and contact information for outpatient services. PLAN: continue CHO diet, will follow po intake, labs and weight Time Spent in Nutritional Counseling and Treatment: 20
[2020-12-13 15:23] LABS: HCT 33.7 % (40.0-50.0)
[2020-12-13] MEDS: Pantoprazole 40 MG TABCR PO (15:59)
[2020-12-13] MEDS: Atorvastatin 40 MG TAB PO (20:05)
[2020-12-13] MEDS: cefTRIAXone 1 GM/50 ML BAG IVPB (20:06)
[2020-12-14] MEDS: DOXYCYCLINE 100 MG in Normal Saline 100 ML IVPB ×2 (00:21→12:18)
[2020-12-14] MEDS: Albuterol/Ipratropium 3 ML UPD VIAL UPD ×3 (00:21→11:36)
[2020-12-14 03:27] VITALS: BP 126/64; PULSE 76; RESP 18; TEMP 37; O2SAT 96
[2020-12-14 07:07] LABS: Abs Immature Grans 0.11 10^3/uL (0.0-0.06); Absolute Basophil Count 0.04 10^3/uL (0.0-0.2); Absolute Eosinophil Count 0.06 10^3/uL (0.0-0.7); Absolute Lymphocyte Count 1.43 10^3/uL (1.2-3.4); Absolute Neutrophil Count 11.35 10^3/uL (1.2-6.7); Basophils % 0.3; Eosinophils % 0.4; HCT 32.6 % (40.0-50.0); HGB 10.6 g/dL (13.5-17.5); Immature Grans % 0.8; Lymphocytes % 10.3; MCH 26.4 pg (27.0-33.0); MCHC 32.5 % (32.0-36.0); MCV 81.3 fL (80-95); MPV 9.6 fL (8.0-11.0); Monocytes % 6.7; Neutrophils % 81.5; Nucleated RBC 0 %; Platelet Count 198 10^3/uL (130-400); RBC 4.01 10^6/uL (4.36-5.78); RDW 14.1 % (11.8-14.1); RDW-SD 41.2 fL; WBC 13.93 10^3/uL (4.4-10.8)
[2020-12-14 07:11] LABS: Absolute Monocyte Count 0.93 10^3/uL (0.1-0.8)
[2020-12-14 07:30] LABS: Anion Gap 8.6 mmol/L (3-11); BUN 31 mg/dL (7-18); CO2 22.4 mmol/L (21.0-32.0); CREATININE 1.3 mg/dL (0.70-1.30); Calcium 8.2 mg/dL (8.5-10.1); Chloride 103 mmol/L (98-107); Estimated GFR 54.57 (mL/min/1.73m2); Glucose 174 mg/dL (74-106); Sodium 134 mmol/L (136-145)
[2020-12-14 08:00] VITALS: BP 140/71; PULSE 92; RESP 20; TEMP 36.9; O2SAT 94
[2020-12-14 08:00] LABS: Ferritin 407 ng/mL (26-388); Folate 12.7 ng/mL (8.6-20.0); Vitamin B12 452 pg/mL (193-986)
[2020-12-14] MEDS: amLODIPine 10 MG TAB PO (08:17)
[2020-12-14] MEDS: Dexamethasone 4 MG TAB 10 MG PO (08:18)
[2020-12-14] MEDS: Multivitamin TAB 1 TAB PO (08:18)
[2020-12-14] MEDS: Pantoprazole 40 MG TABCR PO (08:18)
[2020-12-14] MEDS: guaiFENesin 600 MG TABCR PO (08:19)
[2020-12-14] MEDS: Insulin Aspart 300 UNITS/3 ML PEN SC ×2 (08:21→12:17)
[2020-12-14 08:41] LABS: Iron 77 ug/dL (65-175); Total Iron Binding Capacity 188 ug/dL (250-450); Transferrin Sat 41 % (20-55)
[2020-12-14 10:36] VITALS: PULSE 122; PULSE 86; PULSE 87; RESP 16; RESP 20; RESP 28; O2SAT 95; O2SAT 99
[2020-12-14 10:58] VITALS: BP 137/72; PULSE 94; RESP 18; TEMP 37.4; O2SAT 94
[2020-12-14 11:36] VITALS: PULSE 91; RESP 1; RESP 20; RESP 8; O2SAT 100
[2020-12-14 11:48] VITALS: PULSE 90; RESP 1; RESP 16; RESP 8; O2SAT 100
--- NOTE | 2020-12-14 14:39 | DSE_ITS ---
Date of service: 12/14/20 Time of Service: 14:40 DS: Diagnosis Discharge Diagnosis (1) Atypical pneumonia: Status: Acute (2) Hypoxemia: Status: Resolved (3) Bronchospasm with bronchitis, acute: Status: Acute (4) Acute kidney injury: Status: Resolved (5) Atypical chest pain: Status: Resolved (6) Prediabetes: Status: Chronic (7) Essential hypertension: Status: Chronic (8) B12 deficiency anemia: Status: Acute (9) COVID-19 ruled out by laboratory testing: Status: Ruled-out Discharge Plan Disposition Patient Disposition: HOME Condition: Improving Discharge Details Reason For Visit: ATYPICAL PNUEMONIA, HYPOXEMIA, BRONCHOSPASM Admit Date/Time: 12/12/20 23:25 Admit Provider: Sridhar Bull Attending Provider: Sridhar Bull Primary Care Provider: [facility] Hospital Course: Mr Sellers is a 70 year old male with PMHx of prediabetes, hypertension, hyperlipidemia, past tobacco abuse, who was admitted to [facility] hospitalist service on 12/12/2020 with shortness of breath and cough productive of yellow sputum. His ED workup revealed atypical pneumonia with hypoxia down to 71 on room air. He ruled out for COVID-19 with a negative PCR and, in fact, had received his first dose of the Moderna vaccine 3 days prior to his presentation. He was initiated on empiric ceftriaxone and doxycycline as well as steroids and nebulizer treatments. His blood and sputum cultures remain negative to date. With this therapy, the patient markedly improved and was able to be weaned off of oxygen on by 12/13/2020. Ambulatory pulse ox on day of discharge also demonstrates O2 sats in the 90s. PCP is to repeat outpatient CXR in 4-6 weeks to document resolution of disease. The patient did have acute kidney injury for which his grace-i and chlorthalidone were held and he received IVF. This has now resolved. The patient is being instructed to resume them one at a time. Of note, the patient also had a short episode of atypical L-sided chest pain. He ruled out for ACS. As this was associated with acute respiratory illness, he will need to wait until this has completely resolved before pursuing outpatient ischemic workup, which we will defer to the PCP to order. He is medically stable to be discharged home today. Care for patient as well as completion of his discharge summary on day of discharge took 45 minutes. Home Meds and New Rx's Prescriptions: New cyanocobalamin (vitamin B-12) [Vitamin B-12] 500 mcg Tablet 500 mcg PO DAILY Qty: 30 RF: 0 guaifenesin [Mucinex] 600 mg Tablet Extended Release 12hr 600 mg PO BID PRN PRN (Reason: cough) Qty: 20 RF: 0 cefpodoxime 200 mg tablet 200 mg PO BID Qty: 6 RF: 0 doxycycline hyclate 100 mg tablet 100 mg PO BID Qty: 6 RF: 0 albuterol sulfate 90 mcg/actuation HFA aerosol inhaler 2 puff inhalation Q4H PRN PRN (Reason: shortness of breath or wheezing) Qty: 18 RF: 0 prednisone 20 mg tablet 40 mg PO DAILY Qty: 6 RF: 0 omeprazole 20 mg tablet,delayed release (DR/EC) 20 mg PO DAILY Qty: 7 RF: 0 Continued atorvastatin 40 mg tablet 40 mg PO DAILY Qty: 90 RF: 3 multivitamin with minerals [One Daily Men's 50+] 1 EACH tablet 1 ea PO DAILY RF: 0 chlorthalidone 25 mg tablet 25 mg PO DAILY Qty: 90 RF: 4 amlodipine 10 mg tablet 10 mg PO DAILY Qty: 90 RF: 3 lisinopril 40 mg tablet 40 mg PO DAILY Qty: 90 RF: 3 Discharge Instructions Instructions: Albuterol (By breathing), Prednisone (By mouth), Omeprazole (By mouth), Cefpodoxime Proxetil (By mouth), Doxycycline (By injection), Bacterial Pneumonia (DC) Additional Instructions: Finish your antibiotics and prednisone as prescribed. Follow up with your PCP in 1-2 weeks. Return to the hospital if you are feeling worse, if you have any chest pain, shortness of breath, nausea. Resume your lisinopril tomorrow and your chlorthalidone on 12/17/2020. Stand Alone Forms: Nursing Discharge Form Referrals: Ryanne Sorensen NP [Primary Care Provider] - Activity:: Activity as Tolerated Equipment/Supplies:: No Equipment Needed Diet:: Carb Counting Discharge Orders Discharge Orders: Discharge Order (Routine); Ordered 12/14/20 Ordered By: Bertha Garcia DS: Summary Time Spent with Patient providing and/or coordinating discharge services: Greater than 30 minutes Status at Discharge Functional status at discharge: independent ambulation Overall status at discharge: patient is progressing back to baseline Mental Status: mental status grossly normal Speech and Movement: speech and movement normal Mood: congruent mood Affect: normal affect Exam Narrative Exam Narrative: General: Elderly male, sitting in a chair, on room air, looks better than yesterday. HEENT: EOMI, MMM Heart: RRR, no m/r/g Lungs: CTAB - improved aeration bilaterally Abdomen: soft, nontender, nondistended Extremities: +1 B edema to ankles (patient's chronic edema) Psych Mental Status: mental status grossly normal Speech and Movement: speech and movement normal Mood: congruent mood Affect: normal affect DS: Data Vitals/I&O Vitals and I&O: Vital Signs Temperature 37.4 C 12/14/20 10:58 Temperature Source Tympanic 12/14/20 10:58 Pulse 90 12/14/20 11:48 Pulse Rhythm Regular 12/14/20 13:09 Pulse 107 H 12/12/20 23:50 Respiratory Rate 16 12/14/20 11:48 Respiratory Effort Non-Labored 12/14/20 13:09 Respiratory Depth Normal 12/14/20 13:09 Respiratory Pattern Normal 12/14/20 13:09 Blood Pressure 137/72 12/14/20 10:58 Blood Pressure Mean 74 12/12/20 23:45 Pulse Oximetry 100 12/14/20 11:48 Oxygen Delivery Method Room Air 12/14/20 11:36 Oxygen Flow Rate 0 12/14/20 11:36 Pain Level 0 12/14/20 10:58 Comment 12/13/20 03:45 Intake & Output 12/13/20 12/14/20 12/14/20 23:59 11:59 23:59 Intake Total 1580 / 5620 100 / 820 720 / 820 Output Total 200 / 600 201 / 201 Balance 1380 / 5020 -101 / 619 720 / 619 Weight 106.9 kg Intake: IV 1100 / 3310 100 / 100 Oral 480 / 2310 720 / 720 Output: Urine 200 / 600 201 / 201 Other: Urine Color Light Jyoti Yellow Urine Appearance Clear Clear Clear Urine Odor None Normal Comment patient reports Voiding Methods Urinal Toilet Data Completed and Pending Completed studies during hospitalization [Text1]: CXR: Patchy ground-glass opacities suspicious for atypical pneumonia. A follow-up examination is suggested to document resolution. CT chest: 1. No definite evidence of central pulmonary embolism. Evaluation for pulmonary embolic disease distally is limited by the patient motion artifact. 2. Ground-glass predominantly peripheral infiltrates which are nonspecific but can be seen with atypical pneumonia. Please correlate clinically. 3. Small pleural effusion. 4. Enlarged mediastinal and hilar lymph nodes which are nonspecific. This may be reactive. Labs on day of discharge: Labs from last 24 hours 12/14/20 12/14/20 12/14/20 06:50 06:50 06:50 WBC 13.93 H RBC 4.01 L Hgb 10.6 L Hct 32.6 L MCV 81.3 MCH 26.4 L MCHC 32.5 RDW 14.1 Plt Count 198 MPV 9.6 Immature Gran % 0.8 Neutrophils % 81.5 Lymphocytes % 10.3 Monocytes % 6.7 Eosinophils % 0.4 Basophils % 0.3 Nucleated RBC % 0 Absolute Neutrophils 11.35 H Absolute Lymphocytes 1.43 Absolute Monocytes 0.93 H Absolute Eosinophils 0.06 Absolute Basophils 0.04 Sodium 134 L Potassium 4.0 Chloride 103 Carbon Dioxide 22.4 Anion Gap 8.6 BUN 31 H D Creatinine 1.3 Estimated GFR/1.73 m2 54.57 Glucose 174 H D Calcium 8.2 L Magnesium 2.0 Iron TIBC Transferrin % Sat Ferritin 407 H Vitamin B12 452 Folate 12.7 12/14/20 12/13/20 06:50 14:58 WBC RBC Hgb 11.0 L Hct 33.7 L MCV MCH MCHC RDW Plt Count MPV Immature Gran % Neutrophils % Lymphocytes % Monocytes % Eosinophils % Basophils % Nucleated RBC % Absolute Neutrophils Absolute Lymphocytes Absolute Monocytes Absolute Eosinophils Absolute Basophils Sodium Potassium Chloride Carbon Dioxide Anion Gap BUN Creatinine Estimated GFR/1.73 m2 Glucose Calcium Magnesium Iron 77 TIBC 188 L Transferrin % Sat 41 Ferritin Vitamin B12 Folate Preliminary micro results at discharge 12/12/20 23:16 Blood Culture - Preliminary Blood NO GROWTH 24 HOURS 12/12/20 21:17 Blood Culture - Preliminary Blood NO GROWTH 24 HOURS [facility] Medical History (Updated 12/14/20 @ 14:46 by Bertha Garcia MD) Acute type A viral hepatitis (08/21/13) Essential hypertension (07/30/13) Hyperlipidemia Obesity (BMI 35.0-39.9 without comorbidity) Prediabetes Surgical History Excision, Lipoma Family History Mother , 72 Lung cancer Father , 82 Heart disease Sister Depression Brother No problems noted. Sister No problems noted. Sister No problems noted. Son No problems noted. Daughter No problems noted. Social History Smoking/Tobacco Use Status: Former Tobacco Use Quit Date: 05/15/87 Second Hand Exposure: Yes Smoking risk assessment performed?: Yes Alcohol Intake: current Alcohol Intake frequency: 0-2 drinks per day Alcohol type: beer Drug use: Never Substance use type: does not use Details: states lasyt drink in september Household members: spouse and children Housing: house Do you need help understanding health information?: Never Pets and animals: Yes Pets and animals: dog(s) and horse(s) Sexually active: Yes Do you think of yourself as: straight/heterosexual Current gender identity: male What is your relationship status?: How often do you talk on the phone with friends or family?: once per week How often do you get together with friends or relatives?: once per week How often do you attend baptist or mandaeism services?: 1-3 times per year Do you belong to any clubs or organized social groups?: no Panel score (0-1 are the most socially isolated patients): 1 What type of physical activity do you participate in: none Dennise/Mormonism: Mu-Ism Special dennise needs: No Seatbelt use: sometimes Helmet use: No Drive intox or ride w/intox water tanker driver: No Do you feel safe at home: Yes Do you feel safe in your relationship?: Yes
--- NOTE | 2020-12-14 16:05 | PDOC.CMDIS ---
- If Service Date Differs Date of service: 12/14/20 Time of Service: 16:05 LACE Index Scoring Tool - Questions: Length of Stay (in days): 2 Acuity (Admit via E.D.?): Yes Care Management Discharge Reason for Hospitalization: Atypical pneumonia Discharge Plan: Noe will be discharged home with no new services. He will follow up with his PCP and discharge plan of care and transport with family. Patient/Family Education Needs: Discharge plan, limitations, follow up plan, Ask Me Three
== END 2020-12-14 16:30 | disposition home or self-care (01) | DRG 194 ==
LOC: ER 12-13 00:05 → MS 12-13 00:24
PROVIDERS: Internal Medicine; Admitting Provider Family Medicine; Emergency Provider Student in an Organized Health Care Education/Training Program; PCP Nurse Practitioner; Visit Provider Family Medicine
DX: J18.9 Pneumonia, unspecified organism (principal); N17.9 Acute kidney failure, unspecified; R09.02 Hypoxemia; Z20.822 Contact with and (suspected) exposure to COVID-19; J20.9 Acute bronchitis, unspecified; R73.03 Prediabetes; R07.89 Other chest pain; I10 Essential (primary) hypertension; D51.9 Vitamin B12 deficiency anemia, unspecified
CPT/HCPCS: 36415; 71275; 80048; 80053; 82805; 87040; 87637; 93005; 94618; 94640; 96361; 96365; 96367; 96368; 96375; 99223; 99232; 99239; 99285; J1650; 71045; 82607; 82728; 82746; 83540; 83550; 83735; 83880; 84484; 85014; 85018; 85025; 85610; 85730; 87070; 87205; 93010; 94667; 94668; J0696; J1100; J2060; J3480; J3490; J7620; J8540

== ENCOUNTER 2021-01-19 03:21 | Outpatient (CLI) | payer MEDICARE, SELFPAY ==
[2021-01-19 07:26] LABS: HCT 38.6 % (40.0-50.0); HGB 12.2 g/dL (13.5-17.5); MCH 26.3 pg (27.0-33.0); MCHC 31.6 % (32.0-36.0); MCV 83.4 fL (80-95); MPV 8.5 fL (8.0-11.0); Platelet Count 304 10^3/uL (130-400); RBC 4.63 10^6/uL (4.36-5.78); RDW 14.3 % (11.8-14.1); RDW-SD 43.1 fL
[2021-01-19 07:52] LABS: Hemoglobin A1C 6.4 % (<5.7)
[2021-01-19 09:09] LABS: Calculated LDL 55 mg/dL (<100); Cholesterol 95 mg/dL (<200); HDL Cholesterol 23 mg/dL (40-60); Triglyceride 86 mg/dL (<150)
== END 2021-01-19 03:22 | disposition home or self-care (01) ==
PROVIDERS: PCP Nurse Practitioner; Visit Provider Nurse Practitioner
DX: E78.5 Hyperlipidemia, unspecified (principal); R73.03 Prediabetes
CPT/HCPCS: 36415; 80061; 85027; 83036

== ENCOUNTER 2021-01-26 02:24 | Outpatient (CLI) | payer MEDICARE, SELFPAY ==
--- NOTE | 2021-01-26 07:54 | DI.RAD_ITS ---
EXAM: XR CHEST 2V PA LATERAL CLINICAL HISTORY: f/u ATYPICAL PNEUMONIA, J18.9. TECHNIQUE: 2D digital imaging was performed. COMPARISON: CR,XR XR PORTABLE CHEST AP from 12/12/2020 FINDINGS: Heart size is normal. The mediastinum is not widened. In the peripheral aspect of the left upper lobe there is a concerning nodular mass, noncalcified now evident, not previously present. This measures approximately 2.8 by 3 cm. Also infiltrate noted in both lung bases, more so on the right side. No pleural effusions evident. IMPRESSION: Concerning infiltrates. Also 6 concerning mass in the peripheral aspect of the left upper lobe measu ring 3 x 2.8 cm. Neoplastic until proven otherwise. Follow-up chest CT scan recommended. DATA REPOSITORY: RADIATION DOSE DELIVERED:
== END 2021-01-26 02:44 ==
PROVIDERS: PCP Nurse Practitioner; Visit Provider Nurse Practitioner
DX: J18.9 Pneumonia, unspecified organism (principal); J98.4 Other disorders of lung; R91.8 Other nonspecific abnormal finding of lung field
CPT/HCPCS: 71046

== ENCOUNTER 2021-01-28 16:09 | Inpatient (IN) | payer MEDICARE, SELFPAY ==
[2021-01-28] VITALS (43 sets, daily range): BP systolic 122–184; BP diastolic 65–95; PULSE 67–97; RESP 13–27; TEMP 36.4–37.1; O2SAT 93–98
--- NOTE | 2021-01-28 16:27 | ED.GENADUL_ITS ---
Discharge Plan Disposition Patient Disposition: [facility] INPATIENT Condition: Stable Discharge Details Chief Complaint: GenMedical Clinical Impression: Thrombocytopenia Primary Care Provider: Ryanne Sorensen ED Provider: Norbert Vasquez Home Meds and New Rx's Prescriptions: No Action atorvastatin 40 mg tablet 40 mg PO DAILY Qty: 90 RF: 3 albuterol sulfate 90 mcg/actuation HFA aerosol inhaler 2 puff inhalation Q4H PRN PRN (Reason: shortness of breath or wheezing) Qty: 18 RF: 2 chlorthalidone 25 mg tablet 25 mg PO DAILY Qty: 90 RF: 4 Hold Instructions: Home Medication placed on hold at Doctor's office amlodipine 10 mg tablet 10 mg PO DAILY Qty: 90 RF: 3 lisinopril 40 mg tablet 40 mg PO DAILY Qty: 90 RF: 3 cyanocobalamin (vitamin B-12) [Vitamin B-12] 500 mcg Tablet 500 mcg PO DAILY Qty: 30 RF: 0 Medical Decision Making 71 yo male with hx of hypertension, former smoker, who was admitted early last month for peumonia and bronchospasm who comes in after he was seen at his pcp office for intermittent oozing of blood from nose, mouth lesions and rash on legs. He states these symptoms started yesterday, and that he otherwise feels well, denies weakness, fevers, chills, chest pain or shortness of breath. He is noted to have petechiae on the lower legs, dried blood at anterior nares, no active bleeding and several small ~2mm bluish lesions on his tongue that appear to be small hematomas, normal oropharynx otherwise. He states he has been urinating normally without evidence of blood in urine. Given well appearance doubt sepsis, will obtain cbc, coags, chemistry. He is supposed to have a outpatient cat scan to follow up on a possible mass on lung seen on xray last month, if renal function can handle it will obtain ct chest as well. platelet count is 0, stable H/H and normal coagulation studies. Remains stable, imaging shows no significant acute findings other than nonspecific lymphadenopathy. 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 [facility] is at capacity unfortunately as well so will discuss with hospitalist about admission here while pending hematology consult. Dr. Silva from hematology called back and recommends 40mg decadron daily, discussed with hospitalist and will hold on ivig at this time. PT agrees with plan Differential Diagnosis Differential Diagnosis: ITP, TTP, marrow infiltration, hus, dic, sarcoid Imaging Data Radiologic Study: Attestation: I personally reviewed and interpreted this imaging study as follows: Imaging: CT Scan Radiologist's impression: IMPRESSION: 1. Increased peripheral airspace opacities with adjacent pleural thickening bilaterally. 2. Stable small left pleural effusion. 3. Stable mediastinal lymphadenopathy no acute findings on abd/pelvis HPI General Mode of arrival: ambulatory . Date/Time Provider Initiated Documentation: 01/28/21 16:10 . Limitations to Documentation: no limitations . Information obtained by: patient . History of Present Illness 71 year old M presents to the emergency department with the chief complaint of nose bleed, Patient started experiencing this day(s) (1) and it has been intermittent. No relieving factors improve symptom(s), No exacerbating factors reported . Patient notes rash. Patient did receive the following treatments prior to arrival, none Related Data Home Medications Medication Instructions Recorded Confirmed atorvastatin 40 mg tablet 40 mg PO DAILY #90 tab 09/29/20 01/28/21 amlodipine 10 mg tablet 10 mg PO DAILY #90 tab-cap 10/12/20 01/28/21 chlorthalidone 25 mg tablet 25 mg PO DAILY #90 tab 10/12/20 01/28/21 lisinopril 40 mg tablet 40 mg PO DAILY #90 tab-cap 10/12/20 01/28/21 cyanocobalamin (vitamin B-12) 500 mcg PO DAILY #30 tab 12/14/20 01/28/21 [Vitamin B-12] albuterol sulfate 90 mcg/actuation 2 puff INHALATION Q4H PRN PRN #18 g 12/23/20 01/28/21 aerosol inhaler Previous Rx's Medication Instructions Recorded atorvastatin 40 mg tablet 40 mg PO DAILY #90 tab 09/29/20 amlodipine 10 mg tablet 10 mg PO DAILY #90 tab-cap 10/12/20 chlorthalidone 25 mg tablet 25 mg PO DAILY #90 tab 10/12/20 lisinopril 40 mg tablet 40 mg PO DAILY #90 tab-cap 10/12/20 cyanocobalamin (vitamin B-12) 500 mcg PO DAILY #30 tab 12/14/20 [Vitamin B-12] albuterol sulfate 90 mcg/actuation 2 puff INHALATION Q4H PRN PRN #18 g 12/23/20 aerosol inhaler Allergies Allergy/AdvReac Type Severity Reaction Status Date / Time No Known Allergies Allergy Verified 01/28/21 16:17 General Stated Complaint: GenMedical TYRON: 2 Review of Systems All systems reviewed & are unremarkable except as noted in HPI and below Constitutional Constitutional: Denies chills, Denies fever(s) and Denies weakness ENT Ears, Nose, Mouth, and Throat: Denies change in voice Cardiovascular Cardiovascular: Denies chest pain and Denies dyspnea Respiratory Respiratory: Denies cough and Denies dyspnea Gastrointestinal Gastrointestinal: Denies abdominal pain, Denies nausea and Denies vomiting Musculoskeletal Musculoskeletal: Denies joint swelling Neurologic Neurologic: Denies weakness Psychiatric Psychiatric: Denies depression [facility] Medical History (Updated 01/28/21 @ 19:36 by Norbert Vasquez MD) Acute type A viral hepatitis (08/21/13) Essential hypertension (07/30/13) Hyperlipidemia Obesity (BMI 35.0-39.9 without comorbidity) Prediabetes Surgical History Excision, Lipoma Family History Mother , 72 Lung cancer Father , 82 Heart disease Sister Depression Brother No problems noted. Sister No problems noted. Sister No problems noted. Son No problems noted. Daughter No problems noted. Social History Smoking/Tobacco Use Status: Former Tobacco Use Quit Date: 05/15/87 Tobacco: How many years used: 20 Second Hand Exposure: Yes Smoking risk assessment performed?: Yes Alcohol Intake: former Drug use: Never Substance use type: does not use Details: states lasyt drink in september Household members: spouse and children Housing: house Do you need help understanding health information?: Never Pets and animals: Yes Pets and animals: dog(s) and horse(s) Sexually active: Yes Do you think of yourself as: straight/heterosexual Current gender identity: male What is your relationship status?: How often do you talk on the phone with friends or family?: once per week How often do you get together with friends or relatives?: once per week How often do you attend baptism or methodist services?: 1-3 times per year Do you belong to any clubs or organized social groups?: no Panel score (0-1 are the most socially isolated patients): 1 What type of physical activity do you participate in: none Dennise/Oriental Orthodox: Church Special dennise needs: No Seatbelt use: sometimes Helmet use: No Drive intox or ride w/intox transporter driver: No Do you feel safe at home: Yes Do you feel safe in your relationship?: Yes Exam Const General: no acute distress Orientation: alert HENMT Head: normal to inspection Ears: external ears normal General nose exam: no nasal polyps Mouth: moist mucous membranes Eyes General: appearance normal, both eyes and all related structures Neck Neck: normal visual inspection Resp Effort & Inspection: normal respiratory effort and able to speak in complete sentences Cardio Rate: regular rate Skin General skin exam: elasticity normal Neuro General: patient alert and patient oriented x3 Extrem General: capillary refill normal Psych Mental Status: mental status grossly normal Course Vital Signs Vital signs: Vital Signs Temperature 37.1 C 01/28/21 16:12 Pulse 71 01/28/21 16:12 Respiratory Rate 20 01/28/21 16:12 Blood Pressure 184/85 H 01/28/21 16:12 Pulse Oximetry 95 01/28/21 16:12 Temperature 37.1 C 01/28/21 16:12 Temperature Source Skin 01/28/21 16:12 Pulse 71 01/28/21 16:12 Respiratory Rate 20 01/28/21 16:12 Respiratory Effort Non-Labored 01/28/21 16:18 Blood Pressure 184/85 H 01/28/21 16:12 Blood Pressure Position Sitting 01/28/21 16:12 Pulse Oximetry 95 01/28/21 16:12 Oxygen Delivery Method Room Air 01/28/21 16:12 Oxygen Flow Rate 0 01/28/21 16:12 Pain Level 0 01/28/21 16:12 Lab/Test Results Lab/Test Results: 01/28/21 16:15 Blood Blood Culture - Pending 01/28/21 16:15 Blood Blood Culture - Pending
[2021-01-28 16:34] LABS: Lactate 0.7 mmol/L (0.6-1.4)
[2021-01-28 16:39] LABS: BE (Venous) 1 mmol/L (-2-3); HCO3 (Venous) 25 mmol/L (23-28); O2 Sat (Venous) 95 %; TCO2 (Venous) 23 mmol/L (24-29); pCO2 (Venous) 39 mmHg (41-51); pH (Venous) 7.41 (7.31-7.41); pO2 (Venous) 71 mmHg
[2021-01-28 16:46] LABS: Abs Immature Grans 0.04 10^3/uL (0.0-0.06); Absolute Basophil Count 0.18 10^3/uL (0.0-0.2); Absolute Lymphocyte Count 2.23 10^3/uL (1.2-3.4); Absolute Monocyte Count 0.96 10^3/uL (0.1-0.8); Absolute Neutrophil Count 6.23 10^3/uL (1.2-6.7); Basophils % 1.6; Eosinophils % 12.7; HCT 37.9 % (40.0-50.0); HGB 11.9 g/dL (13.5-17.5); Immature Grans % 0.4; Lymphocytes % 20.2; MCH 25.8 pg (27.0-33.0); MCHC 31.4 % (32.0-36.0); Monocytes % 8.7; Neutrophils % 56.4; Nucleated RBC 0 %; RBC 4.62 10^6/uL (4.36-5.78); RDW 14.3 % (11.8-14.1); RDW-SD 42.2 fL; WBC 11.04 10^3/uL (4.4-10.8)
[2021-01-28 16:58] LABS: INR 1.1 (0.9-1.1); PTT Activated 23.9 sec (21.0-27.5); Prothrombin Time 10.6 sec (9.3-11.0)
[2021-01-28 17:04] LABS: Platelet Count 0 10^3/uL (130-400)
[2021-01-28 17:11] LABS: Diff Comment Agrees w/ Instrument; RBC Morphology Normal
--- NOTE | 2021-01-28 17:15 | DI.CT_ITS ---
EXAM: CT CHEST PE ABD PELVIS W CLINICAL HISTORY: mass on cxr, ?cancer TECHNIQUE: CT examination of the chest, abdomen, and pelvis was performed utilizing intravenous inf usion of 100 cc of Omnipaque 350 with biphasic hepatic imaging. Oral contrast was also administered. COMPARISON: CT CT CHEST PE CTA from 12/12/2020 CR XR CHEST 2V PA LATERAL from 01/26/2021 FINDINGS: There are bilateral predominantly peripheral airspace opacities, some pleural based, there are possib le areas of nodularity at multiple sites bilaterally. There is a small left pleural effusion and tin y right pleural effusion. There is mild prominence of mediastinal lymph nodes at multiple sites, the largest pretracheal node measuring roughly 21 millimeters in diameter. Findings as described may be due to infectious process, other etiologies including neoplastic disease not excluded. No dominant mass identified. No axillary or supraclavicular adenopathy. Tracheobronchial tree appears intact. No evidence of pulmonary embolic disease. Unremarkable appearance of thoracic aorta and major branch vessels. The liver appears normal except for a 12 millimeter in diameter low-attenuation right hepatic lobe le niurka consistent with cyst.. Spleen is unremarkable in appearance. Pancreas appears intact. Adrenals appear normal. Kidneys are unremarkable in appearance with no renal mass, hydronephrosis, or nephrolithiasis. There is mild wall thickening of the urinary bladder, consider chronic bladder outlet obstruction royce yaazn cystitis. Abdominal aorta and major visceral branches appear intact. No focal bowel pathology. Appendix is normal. No evidence of diverticulitis. No abdominal or pelvic adenopathy. No significant abdominal wall hernia. No focal bony lesion identified on scanning of the chest, abdomen, and pelvis. IMPRESSION: Bilateral predominantly peripheral pulmonary opacities with associated pleural effusions. Findings a re most consistent with infectious process, however other etiologies including neoplasia not excluded . No dominant mass identified. Follow-up chest CT recommended following treatment. RADIATION DOSE DELIVERED: 1,749.52mGy.cm Total DLP 1,749.52mGy.cm Total DLP RADIATION OPTIMIZATION: All CT scans at this facility use at least one of these dose optimization te chniques: automated exposure control; mA and/or kV adjustment per patient size (includes targeted exa ms where dose is matched to clinical indication); or iterative reconstruction.
[2021-01-28 17:21] LABS: ALT 21 U/L (16-63); AST 15 U/L (15-37); Albumin 3.4 g/dL (3.4-5.0); Alkaline Phosphatase 61 U/L (46-116); Anion Gap 11.6 mmol/L (3-11); BUN 16 mg/dL (7-18); Bilirubin, Direct 0.2 mg/dL (0.0-0.2); Bilirubin, Total 0.8 mg/dL (0.2-1.0); CO2 24.4 mmol/L (21.0-32.0); CREATININE 1.3 mg/dL (0.70-1.30); Calcium 9.5 mg/dL (8.5-10.1); Chloride 103 mmol/L (98-107); Estimated GFR 54.42 (mL/min/1.73m2); Glucose 117 mg/dL (74-106); Magnesium 1.9 mg/dL (1.8-2.4); Potassium 4.1 mmol/L (3.5-5.1); Sodium 139 mmol/L (136-145); Total Protein 8.5 g/dL (6.4-8.2)
[2021-01-28 17:46] LABS: LDH 178 U/L (85-227)
[2021-01-28] MEDS: Normal Saline - Diluent 50 ML VIAL IV (17:48)
[2021-01-28 18:31] LABS: Fibrinogen (Stat) (Littleton) 454 mg/dL (208-434)
--- NOTE | 2021-01-28 18:38 | DI.VRAD_ITS ---
PROCEDURE INFORMATION: Exam: CTA Chest With Contrast Exam date and time: 01/28/2021 5:28 PM Age: 71 years old Clinical indication: Screening exam; Other screening; Patient HX: Mass on cxr, ? cancer TECHNIQUE: Imaging protocol: Computed tomographic angiography of the chest with contrast. 3D rendering (Not supervised by radiologist): MIP and/or 3D reconstructed images were created by the technologist. COMPARISON: CT CHEST PE CTA 12/12/2020 9:59 PM FINDINGS: There is a stable small left pleural effusion. There are increased peripheral airspace opacities bilaterally with associated nodular pleural thickening. No evidence of pulmonary embolism. Normal thoracic aorta. There are stable mildly enlarged mediastinal lymph nodes. No fracture. IMPRESSION: 1. Increased peripheral airspace opacities with adjacent pleural thickening bilaterally. 2. Stable small left pleural effusion. 3. Stable mediastinal lymphadenopathy. PROCEDURE INFORMATION: Exam: CT Abdomen And Pelvis With Contrast Exam date and time: 01/28/2021 5:28 PM Age: 71 years old Clinical indication: Screening exam; Other screening; Patient HX: Mass on cxr, ? cancer TECHNIQUE: Imaging protocol: Computed tomography of the abdomen and pelvis with contrast. COMPARISON: CT CHEST PE CTA 12/12/2020 9:59 PM FINDINGS: There is a 1 cm probable cyst in the right lobe of the liver. Normal gallbladder, kidneys, adrenal glands, pancreas and spleen. Normal abdominal aorta. No evidence of bowel obstruction. Nonvisualized appendix. No evidence of appendicitis. There is colonic diverticulosis without diverticulitis. There is slight thickening of the wall of the urinary bladder. The prostate gland is enlarged. No free fluid or free air. There are shotty para-aortic lymph nodes, nonspecific. No fracture. IMPRESSION: No acute findings. Dictated and Authenticated by: Adam Hugo MD. Ordering:LISA Toussaint MD
[2021-01-28 18:57] LABS: Source Nasal/Nares
[2021-01-28] MEDS: Dexamethasone 10 MG/ML VIAL 40 MG IVP (19:19)
[2021-01-28 19:37] LABS: COVID-19 PCR Negative (Negative)
[2021-01-28] MEDS: Famotidine 20 MG TAB 40 MG PO (21:55)
--- NOTE | 2021-01-28 22:31 | W.PM.HP.N ---
Date of service: 01/28/21 Time of Service: 22:31 Assessment and Plan Assessment and plan (1) Acute ITP: Status: Acute Assessment and plan: ddx: viral infection (from atypical pneumonia; EBV, parvovirus, HCV, HIV), drug induced (recent cephalosporin use however, recent CBC from 01/19/21 demonstrated normal platelets of 304,000), other drugs could be from chlorthalidone however he has been off this since his last admission (11/2802), lisinopril; neoplastic (NHL, CLL), autoimmune disease (RA, SLE, antiphospholipid antibody syndrome). Will treat w/ dexamethasone 40 mg daily x 4 days but will probably need continued prednisone at 1 to 2 mg/kg for up to 6 weeks. I will check viral studies (EBV, HIV, HCV, parvo B19) and Mycoplasma IgM and IgG, Helicobacter pylori. Once his platelets 20,000 or higher he can be monitored as outpatient and have hematology follow up. (2) Prediabetes: Status: Chronic Assessment and plan: monitor glucose AC/HS; may need coverage from elevated readings d/t dexamethasone (3) Essential hypertension: Status: Chronic Assessment and plan: cont. norvasc and lisinopril. hold chlorthalidone. (4) Abnormal CT scan, chest: Status: Acute Assessment and plan: peripheral ground glass opacities, probably represent residual from his recent pneumonia. Will arrange follow up HCT in 4 to 6 weeks. If no improvement then he ought to see pulmonology. History of Present Illness History of Present Illness Chief Complaint: nose bleeds, petechiae Narrative: 71 y.o. male, w/ PMH HTN, HLD, pre-diabetes, tubular adenoma, obesity and recently diagnosed B12 deficiency anemia who was hospitalized 12/12-12/14/20 for atypical pneumonia and was treated for 3 days w/ ceftriaxone and doxycycline, steroids and beta agonist nebulizers and was discharged home on 3 day course of cefpodoxime, doxycycline and prednisone and prn albuteroal MDI. His symptoms of cough and dyspnea improved. He also has completed his COVID-19 vaccine (Moderna, completed on 01/10/2021). He has had no fever nor rigors since leaving the hospital but developed epistaxis beginning 2 nights ago which he attributed to dry air but then today noticed blood blisters on his skin and petechiae over his legs and blood blisters in his mouth and bleeding of the gums. He denies any hematuria or hematochezia. He saw his PCP today who did a protime w/ INR of 1.2 but was sent to the ER for further evaluation. The patient was seen by Dr. Vasquez in the ER who did routine labs including CBC, CMP, fibrinogen, protime, aPtt, PCR for SARS-CoV2 (which was negative). CBC demonstates severe thrombocytopenia (platelet of 0), WBC 11,000, Hb 11.9 gm. CMP was unremarkable, normal PT, APTT and fibrinogen. Review of his meds shows that he chronically is on amlodipine, lisinopril for his HTN (his chlorthalidone has been on hold since his discharge on 12/14/20). He is chronically on atorvastatin for his HLD. He uses albuteroal HFA on a prn basis. He also takes ibuprofen regularly for his arthritis (bunions on his great toes). Dr. Vasquez also ordered CTA of chest, abdomen and pelvis d/t patient having a concerning finding on his last CXR on 01/26/21 notiing BONNIE peripheral modular mass, noncalcified not previously seen on prior CXR from 12/12/20. This measures 2.8 cm x 3 cm. Also has bibasilar lung infiltrates. CT chest was recommended. Vrad read his CTA tonight as showing increased peripheral airspace opacities w/ adjacent pleural thickening bilaterally and stable small left pleural effusion and stable mediastinal adenopathy. Dr. Vasquez spoke w/ Dr. Silva, hematology at [facility] who recommended beginning dexamethasone 40 mg daily x 4 days and did not recommend IVIG. Patient is being monitored on observation overnight until his platelet count rises above 20,000. Review of Systems Constitutional Constitutional: Reports excessive sweating, Denies fever(s), Reports night sweats and Reports weight loss Comments: patient reports 30 lb wt loss from mid 2019 to December 2020 after hospitalized for pneumonia but says that he has regained 15 lbs since hospitalized in December. He says some of the wt loss was intentional up until he was ill in late Nov/early December. Eyes Eyes: Reports system reviewed and no additional complaints, except as documented ENT Ears, Nose, Mouth, and Throat: Reports bleeding gums, Reports epistaxis, Reports mouth lesions, Denies odynophagia, Denies sinus pressure, Denies sore throat, Denies throat swelling and Denies tongue swelling Cardiovascular Cardiovascular: Reports system reviewed and no additional complaints, except as documented, Denies chest pain, Denies leg edema, Denies lightheadedness and Denies dyspnea Respiratory Respiratory: Denies hemoptysis, Denies excessive phlegm production and Denies dyspnea Gastrointestinal Gastrointestinal: Denies abdominal pain, Denies melena, Denies hematochezia, Denies diarrhea, Denies nausea, Denies odynophagia and Denies hematemesis Genitourinary Genitourinary: Denies hematuria, Denies difficulty urinating and Denies urinary frequency Musculoskeletal Musculoskeletal: Denies myalgias and Denies joint swelling Integumentary/Breasts Skin/Breast: Reports as per HPI Neurologic Neurologic: Reports system reviewed and no additional complaints, except as documented Psychiatric Psychiatric: Reports system reviewed and no additional complaints, except as documented Endocrine Endocrine: Reports as per HPI and Reports excessive sweating Hematologic/Lymphatic Hematologic/Lymphatic: Reports as per HPI, Reports easy bleeding and Reports easy bruising Allergic/Immunologic Allergic/Immunologic: Denies throat swelling and Denies tongue swelling [facility] Medical History Acute type A viral hepatitis (08/21/13) Essential hypertension (07/30/13) Hyperlipidemia Obesity (BMI 35.0-39.9 without comorbidity) Prediabetes Surgical History Excision, Lipoma Family History Mother , 72 Lung cancer Father , 82 Heart disease Sister Depression Brother No problems noted. Sister No problems noted. Sister No problems noted. Son No problems noted. Daughter No problems noted. Social History Smoking/Tobacco Use Status: Former Tobacco Use Quit Date: 05/15/87 Tobacco: How many years used: 20 Second Hand Exposure: Yes Smoking risk assessment performed?: Yes Alcohol Intake: former Drug use: Never Substance use type: does not use Details: states lasyt drink in september Household members: spouse and children Housing: house Do you need help understanding health information?: Never Pets and animals: Yes Pets and animals: dog(s) and horse(s) Sexually active: Yes Do you think of yourself as: straight/heterosexual Current gender identity: male What is your relationship status?: How often do you talk on the phone with friends or family?: once per week How often do you get together with friends or relatives?: once per week How often do you attend latter-day or advent services?: 1-3 times per year Do you belong to any clubs or organized social groups?: no Panel score (0-1 are the most socially isolated patients): 1 What type of physical activity do you participate in: none Dennise/Latter Day: Rastafari Special dennise needs: No Seatbelt use: sometimes Helmet use: No Drive intox or ride w/intox driver education instructor: No Do you feel safe at home: Yes Do you feel safe in your relationship?: Yes Meds Allergies and Home Medications Allergies Allergy/AdvReac Type Severity Reaction Status Date / Time No Known Allergies Allergy Verified 01/28/21 16:17 Home Medications Medication Instructions Recorded Confirmed Type atorvastatin 40 mg tablet 40 mg PO DAILY #90 tab 09/29/20 01/28/21 Rx amlodipine 10 mg tablet 10 mg PO DAILY #90 tab-cap 10/12/20 01/28/21 Rx chlorthalidone 25 mg tablet 25 mg PO DAILY #90 tab 10/12/20 01/28/21 Rx lisinopril 40 mg tablet 40 mg PO DAILY #90 tab-cap 10/12/20 01/28/21 Rx cyanocobalamin (vitamin B-12) 500 mcg PO DAILY #30 tab 12/14/20 01/28/21 Rx [Vitamin B-12] albuterol sulfate 90 mcg/actuation 2 puff INHALATION Q4H PRN PRN #18 g 12/23/20 01/28/21 Rx aerosol inhaler Exam Const General: cooperative, no acute distress, well developed and well groomed Nutritional Appearance: obese Orientation: alert, awake and oriented x3 HENMT Head: atraumatic and No periorbital ecchymosis Ears: hearing grossly normal bilaterally, external ears normal and EAC's normal General nose exam: epistaxis bilaterally anterior source and dried blood present Face and sinus: normal facial exam Mouth: moist mucous membranes, lip abnormal (petechia and purpura), oral mucosa abnormal hematoma of the right buccal mucosa and of the soft palate and palatal petechiae and tongue abnormal ecchymotic Teeth and gingiva: gingiva abnormal other (gingival bleeding) Eyes General: appearance normal, both eyes and all related structures Visual Albright: normal visual albright by confrontation Alignment and Position: alignment normal Eyelids: eyelid abnormality left lower eyelid other (petechiae) Conjunctivae: conjunctivae normal Sclera: sclerae normal Cornea: corneas normal Pupils: PERRL EOM: EOM intact bilaterally Direct ophthalmoscopy: normal light reflex and no photophobia Neck Neck: normal visual inspection, full ROM, no lymphadenopathy, no meningeal signs, trachea midline and supple Thyroid: thyroid normal Carotids: normal carotid upstroke Lymphatic: no lymphadenopathy noted Chest Chest: abnormal inspection of the chest other (petechiae) Resp Effort & Inspection: normal respiratory effort and able to speak in complete sentences Auscultation: rales bilaterally at the base, no rhonchi, no wheezes and no rubs Percussion: percussion normal Tactile Fremitus: tactile fremitus absent Cardio Jugular venous pressure: no JVD Palpation: normal PMI Rate: regular rate Rhythm: regular rhythm Heart Sounds: S1 normal, S2 normal and murmur systolic early, crescendo, soft, III/ and at the apex Bruits: no abdominal aortic bruits and no carotid bruits Pulses: brachial pulses present bilaterally, radial pulses present bilaterally, femoral pulses present bilaterally, posterior tibial pulses present bilaterally and dorsalis pedis present bilaterally GI Inspection: normal to inspection and obesity Palpation: soft and no hepatosplenomegaly Percussion: normal to percussion Auscultation: normal bowel sounds Rectal Exam: other (deferred) General: No CVA tenderness Penis: other (deferred) Testes: other (deferred) Back/Spine/Pelvis Back: no CVA tenderness Cervical Spine: normal cervical lordosis Thoracic/Lumbar Spine: thoracic and lumbar spine normal to inspection Skin General skin exam: petechiae (over chest, abdomen, arms and especially over lower legs) and purpura (large purpuric lesion CHERYL arm, small purpuric lesions in mouth over palate) Wounds: no wounds Neuro General: patient alert, patient awake and patient oriented x3 Cranial Nerves: CN's II-XI intact bilaterally Cognition: normal cognition Speech: speech normal Motor: muscle tone normal throughout Sensory Exam: no sensory deficits noted Pupils: Normal pupillary reactivity/response: bilateral Extrem General: normal to inspection, full ROM and capillary refill normal Right upper extremity: normal to inspection, full ROM and normal capillary refill Left upper extremity: normal to inspection, full ROM and normal capillary refill Right lower extremity: normal to inspection, full ROM, normal capillary refill, no joint enlargement and foot Details: other (bunion present) Left lower extremity: normal to inspection, full ROM, normal capillary refill, no joint enlargement and foot Details: other (bunion) Psych Appearance: grossly normal and well kempt Mental Status: mental status grossly normal Speech and Movement: speech and movement normal Mood: congruent mood Affect: normal affect Attitude: cooperative Thought Process: normal Thought Content: normal Insight: insight good Judgment: judgment good Results Imaging Abdomen CT scan report/results: report reviewed CT scan - chest: report reviewed and image reviewed CT scan - pelvis: report reviewed Labs Result diagrams: 01/28/21 16:15 01/28/21 16:15 Labs: Laboratory Results - last 24 hr 01/28/21 01/28/21 01/28/21 16:15 16:15 16:15 WBC RBC Hgb Hct MCV MCH MCHC RDW Plt Count MPV Immature Gran % Neutrophils % Lymphocytes % Monocytes % Eosinophils % Basophils % Nucleated RBC % Absolute Neutrophils Absolute Lymphocytes Absolute Monocytes Absolute Eosinophils Absolute Basophils RBC Morphology PT INR APTT Fibrinogen VBG pH 7.41 VBG pCO2 39 L VBG pO2 71 VBG HCO3 25 VBG Total CO2 23 L VBG O2 Saturation 95 VBG Base Excess 1 VBG Lactate 0.7 Sodium 139 Potassium 4.1 Chloride 103 Carbon Dioxide 24.4 Anion Gap 11.6 H BUN 16 Creatinine 1.3 Estimated GFR/1.73 m2 54.42 Glucose 117 H Calcium 9.5 Magnesium 1.9 Total Bilirubin 0.8 Conjugated Bilirubin 0.2 AST 15 ALT 21 Alkaline Phosphatase 61 Lactate Dehydrogenase Total Protein 8.5 H Albumin 3.4 COVID-19 Source SARS-CoV-2 (PCR) Patient ABO/Rh Antibody Screen 01/28/21 01/28/21 01/28/21 16:15 16:15 16:15 WBC 11.04 H RBC 4.62 Hgb 11.9 L Hct 37.9 L MCV 82.0 MCH 25.8 L MCHC 31.4 L RDW 14.3 H Plt Count 0 L* MPV Immature Gran % 0.4 Neutrophils % 56.4 Lymphocytes % 20.2 Monocytes % 8.7 Eosinophils % 12.7 Basophils % 1.6 Nucleated RBC % 0 Absolute Neutrophils 6.23 Absolute Lymphocytes 2.23 Absolute Monocytes 0.96 H Absolute Eosinophils 1.40 H Absolute Basophils 0.18 RBC Morphology Normal PT 10.6 INR 1.1 APTT 23.9 Fibrinogen VBG pH VBG pCO2 VBG pO2 VBG HCO3 VBG Total CO2 VBG O2 Saturation VBG Base Excess VBG Lactate Sodium Potassium Chloride Carbon Dioxide Anion Gap BUN Creatinine Estimated GFR/1.73 m2 Glucose Calcium Magnesium Total Bilirubin Conjugated Bilirubin AST ALT Alkaline Phosphatase Lactate Dehydrogenase Total Protein Albumin COVID-19 Source SARS-CoV-2 (PCR) Patient ABO/Rh O Positive Antibody Screen Negative 01/28/21 01/28/21 01/28/21 16:30 16:30 18:53 WBC RBC Hgb Hct MCV MCH MCHC RDW Plt Count MPV Immature Gran % Neutrophils % Lymphocytes % Monocytes % Eosinophils % Basophils % Nucleated RBC % Absolute Neutrophils Absolute Lymphocytes Absolute Monocytes Absolute Eosinophils Absolute Basophils RBC Morphology PT INR APTT Fibrinogen 454 H VBG pH VBG pCO2 VBG pO2 VBG HCO3 VBG Total CO2 VBG O2 Saturation VBG Base Excess VBG Lactate Sodium Potassium Chloride Carbon Dioxide Anion Gap BUN Creatinine Estimated GFR/1.73 m2 Glucose Calcium Magnesium Total Bilirubin Conjugated Bilirubin AST ALT Alkaline Phosphatase Lactate Dehydrogenase 178 Total Protein Albumin COVID-19 Source Nasal/nares SARS-CoV-2 (PCR) Negative Patient ABO/Rh Antibody Screen Last Vital Signs Temp 36.4 C L 01/28/21 20:42 Pulse 74 01/28/21 20:42 Resp 18 01/28/21 20:42 BP 152/76 H 01/28/21 20:42 Pulse Ox 96 01/28/21 20:42 COVID-19 Screening Have you, or household traveled for leisure in last 14 days?: No Had IN PERSON contact w/suspected or confirmed C-19 person: No
[2021-01-29 00:06] VITALS: BP 155/79; PULSE 74; RESP 18; TEMP 36.6; O2SAT 97
[2021-01-29 07:24] LABS: Abs Immature Grans 0.04 10^3/uL (0.0-0.06); Absolute Basophil Count 0.05 10^3/uL (0.0-0.2); Absolute Eosinophil Count 0.04 10^3/uL (0.0-0.7); Absolute Lymphocyte Count 0.78 10^3/uL (1.2-3.4); Absolute Monocyte Count 0.09 10^3/uL (0.1-0.8); Basophils % 0.8; Eosinophils % 0.6; HCT 36.9 % (40.0-50.0); HGB 11.4 g/dL (13.5-17.5); Immature Grans % 0.6; Lymphocytes % 12.5; MCH 25.7 pg (27.0-33.0); MCHC 30.9 % (32.0-36.0); MCV 83.1 fL (80-95); Monocytes % 1.4; Neutrophils % 84.1; Nucleated RBC 0 %; RBC 4.44 10^6/uL (4.36-5.78); RDW 14.2 % (11.8-14.1); RDW-SD 43.3 fL; WBC 6.22 10^3/uL (4.4-10.8)
[2021-01-29 07:31] LABS: Absolute Neutrophil Count 5.23 10^3/uL (1.2-6.7); Platelet Count 1 10^3/uL (130-400)
[2021-01-29 07:53] VITALS: BP 132/73; PULSE 79; RESP 18; TEMP 37; O2SAT 97
[2021-01-29 08:14] LABS: Bilirubin Negative (Negative); Blood Large (Negative); Clarity Clear (Clear); Glucose Negative (Negative); Ketones Negative (Negative); Leukocyte Esterase Negative (Negative); Nitrite Negative (Negative); Specific Gravity 1.025 (1.005-1.025); Urobilinogen 0.2 EU/dL (Up TO 0.2)
[2021-01-29 08:24] LABS: Bacteria Many HPF (Negative); C & S Indicated? Yes; Casts 0-2 Coarse Granular LPF (Negative); Crystals Negative HPF (Negative); Epithelial Cells Rare HPF (Negative); Mucus Moderate (Negative); RBC >50 HPF (0-2)
[2021-01-29 08:28] LABS: TSH (W/Ref FT4) 0.78 uIU/mL (0.36-3.74)
[2021-01-29] MEDS: Atorvastatin 40 MG TAB PO (08:46)
[2021-01-29] MEDS: amLODIPine 10 MG TAB PO (08:46)
[2021-01-29] MEDS: Dexamethasone 4 MG TAB 40 MG PO (08:46)
[2021-01-29] MEDS: Cyanocobalamin 500 MCG TAB PO (08:46)
[2021-01-29] MEDS: Lisinopril 20 MG TAB 40 MG PO (08:46)
--- NOTE | 2021-01-29 10:04 | INITIAL_ITS ---
- If Service Date Differs Date of service: 01/29/21 Time of Service: 10:04 Care Management Initial Assess REASON FOR HOSPITALIZATION:: Acute ITP PAST MEDICAL HISTORY/PAST SURGICAL HISTORY:: Medical History . Acute type A viral hepatitis (08/21/13). Essential hypertension (07/30/13). Hyperlipidemia. Obesity (BMI 35.0-39.9 without comorbidity). Prediabetes. Surgical History . Excision, Lipoma PREVIOUS FUNCTIONAL STATUS/SOCIAL/FAMILY SUPPORTS:: Jens lives in [place], [place] with his Elo and 2 children ages 5 and 8. 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 Noe is independent at baseline and remains active. CURRENT FUNCTIONAL STATUS:: Noe was sitting up in a chair when CM met with him. He was pleasant and engaged readily with CM, known to him from a previous admission. He stated that things had been going well until he started having bloody noses a couple of days ago. He stated that he probobly had some earlier signs that he may have missed. Noe did share that after his last admission when he had a conversation with this CM about supplemental Medicare plans, he contacted an agent and now has supplemental insurance. He acknowledged that he felt it was a good decision, especially with another hospitalization. ADVANCE DIRECTIVES:: none on file - given blank copies last admission Has patient been provided with info about the portal/API?: Yes Did the patient sign up for the portal?: No CODE STATUS:: Full Code INSURANCE COVERAGE / FINANCIAL ISSUES:: Medicare CURRENT HOME/COMMUNITY SERVICES/EQUIPMENT:: none PRIMARY CARE PHYSICIAN:: Ryanne Sorensen POTENTIAL DISCHARGE NEEDS:: Follow up with PCP, possibly hematology, and plan of care PATIENT/FAMILY EDUCATION NEEDS:: Review of discharge instructions including medications, limitations, follow up plan and Ask Me Three TRANSPORTATION:: via private vehicle with family unless transfer to a tertiary facility required PLAN:: Noe will likely be discharged home with no new services. He will follow up with his PCP and likely other medical specialists. He will transport with his via private vehicle. CM will continue to support Noe and assess for discharge planning concerns. Readmission - Within the Past 30 Days Yes or No: N (Was hospitalized at the end of November.)
--- NOTE | 2021-01-29 12:15 | PHA.REVIEW ---
Pharmacy Admission Review - Admission Clinical Review (Last Reviewed 01/28/21 @ 23:58 by Leroy Bowman) Abnormal CT scan, chest (Acute) Acute ITP (Acute) No Known Allergies Allergy (Verified 01/28/21 16:17) Height 5 ft 10.87 in Weight 96.6 kg - Comments Comments/Follow Ups: Reported adverse event of severe thrombocytopenia to [facility] as he received the second moderna COVID vaccination on 01/07/21. Temporary [facility] E-Report No: [id number] If you have additional information that will contribute to our understanding of the reported event, or if you would like to obtain the permanent [facility] ID Number that was assigned to this report, please contact [facility]. , Email: [email or web address] - Renal Dosing Renal Dosing: BUN 16 mg/dL (7-18) 01/28/21 16:15 Creatinine 1.3 mg/dL (0.70-1.30) 01/28/21 16:15 Medications needing adjustments: Reviewed List of meds needing interventions: eCrCl 53 ml/min , orders ok - Anticoagulation Anticoagulation: Hgb 11.4 g/dL (13.5-17.5) L 01/29/21 06:41 Hct 36.9 % (40.0-50.0) L 01/29/21 06:41 Plt Count 1 10^3/uL (130-400) L* D 01/29/21 06:41 INR 1.1 (0.9-1.1) 01/28/21 16:15 Creatinine 1.3 mg/dL (0.70-1.30) 01/28/21 16:15 DVT Prohphylaxis: N/A Therapeutic Anticoagulation: N/A - Opiate Usage Evaluate Pain Scale/Pains Meds: N/A - Relevant Labs Sodium 139 mmol/L (136-145) 01/28/21 16:15 Potassium 4.1 mmol/L (3.5-5.1) 01/28/21 16:15 Chloride 103 mmol/L (98-107) 01/28/21 16:15 Magnesium 1.9 mg/dL (1.8-2.4) 01/28/21 16:15 Electrolytes, C-Reactive P, ESR: Reviewed - DM Control DM Control: Glucose 117 mg/dL (74-106) H 01/28/21 16:15 Insulin Dosing: N/A - Heart Failure/GA EF%, ISAI's, B-Blockers, Diuretics: Reviewed (amlodipine, lisinopril) - BP Control BP Control: Blood Pressure 132/73 If elevated: Reviewed - Qtc Review If Elevated: N/A - IV to PO Switch IV Medications: Reviewed - Home Meds Home Med List reviewed: Reviewed Relevent Home Meds Not ordered & why?: chlorthalidone - has been on hold since last hosp admission in beginning of december (was held then due to EVANGELISTA), timing of restart was to be done by PCP - Current meds Current Medication Order Review: Reviewed - Comments Comments/Follow Ups: decadron 40mg daily started for ITP per rec from hematology at [facility] [place], will hold on IVIG for now
--- NOTE | 2021-01-29 13:33 | W.PM.PROGNOT ---
Date of Service Date of service: 01/29/21 Time of Service: 13:33 Assessment and Plan Assessment and plan (1) Acute ITP: Status: Acute Assessment and plan: await viral, immunologic studies and flow cytometry. Pharmacist indicated that she would make out a [employer] report. cont. dexamethasone 40 mg daily. Platelets are now at least registering at 1 (previously was 0). (2) Prediabetes: Status: Chronic Assessment and plan: monitor glucose AC/HS; may need coverage from elevated readings d/t dexamethasone (3) Essential hypertension: Status: Chronic Assessment and plan: cont. norvasc and lisinopril. hold chlorthalidone. (4) Abnormal CT scan, chest: Status: Acute Assessment and plan: peripheral ground glass opacities, probably represent residual from his recent pneumonia. Will arrange follow up HCT in 4 to 6 weeks. If no improvement then he ought to see pulmonology. Subjective Subjective Interval history since last seen: Patient states that he has noticed a decrease in the bleeding from his mouth/gums but still has some epistaxis. Petechiae are still present. Otherwise he feels fine. I explained to him that we are doing a number of tests to look for cause for his ITP including viral infections and leukemias but if all the tests come back w/ no results to explain his ITP we have to consider that this may be d/t his Moderna SARS-Cov-2 vaccine. I have asked pharmacy to report his ITP to the [employer] system. Exam Narrative Exam Narrative: Elderly white male sitting up in his chair watching TV. skin w/ diffuse petechiae over arms, chest, abdomen and particularly over his lower legs Nares w/ dried blood, oraopharynx w/ pururic lesions over palate and tongue but gums are no longer bleeding. Objective Last Vital Signs Temp 37.0 C 01/29/21 07:53 Pulse 79 01/29/21 07:53 Resp 18 01/29/21 07:53 BP 132/73 01/29/21 07:53 Pulse Ox 97 01/29/21 07:53 Laboratory Results - last 24 hr 01/28/21 01/28/21 01/28/21 16:15 16:15 16:15 WBC RBC Hgb Hct MCV MCH MCHC RDW Plt Count MPV Immature Gran % Neutrophils % Lymphocytes % Monocytes % Eosinophils % Basophils % Nucleated RBC % Absolute Neutrophils Absolute Lymphocytes Absolute Monocytes Absolute Eosinophils Absolute Basophils RBC Morphology PT INR APTT Fibrinogen VBG pH 7.41 VBG pCO2 39 L VBG pO2 71 VBG HCO3 25 VBG Total CO2 23 L VBG O2 Saturation 95 VBG Base Excess 1 VBG Lactate 0.7 Sodium 139 Potassium 4.1 Chloride 103 Carbon Dioxide 24.4 Anion Gap 11.6 H BUN 16 Creatinine 1.3 Estimated GFR/1.73 m2 54.42 Glucose 117 H Calcium 9.5 Magnesium 1.9 Total Bilirubin 0.8 Conjugated Bilirubin 0.2 AST 15 ALT 21 Alkaline Phosphatase 61 Lactate Dehydrogenase Total Protein 8.5 H Albumin 3.4 TSH Urine Color Urine Clarity Urine pH Ur Specific [place] Urine Protein Urine Ketones Urine Blood Urine Nitrite Urine Bilirubin Urine Urobilinogen Ur Leukocyte Esterase Urine RBC Urine WBC Ur Epithelial Cells Urine Crystals Urine Bacteria Urine Casts Urine Mucus Ur Culture Indicated? Urine Glucose COVID-19 Source SARS-CoV-2 (PCR) Patient ABO/Rh Antibody Screen 01/28/21 01/28/21 01/28/21 16:15 16:15 16:15 WBC 11.04 H RBC 4.62 Hgb 11.9 L Hct 37.9 L MCV 82.0 MCH 25.8 L MCHC 31.4 L RDW 14.3 H Plt Count 0 L* MPV Immature Gran % 0.4 Neutrophils % 56.4 Lymphocytes % 20.2 Monocytes % 8.7 Eosinophils % 12.7 Basophils % 1.6 Nucleated RBC % 0 Absolute Neutrophils 6.23 Absolute Lymphocytes 2.23 Absolute Monocytes 0.96 H Absolute Eosinophils 1.40 H Absolute Basophils 0.18 RBC Morphology Normal PT 10.6 INR 1.1 APTT 23.9 Fibrinogen VBG pH VBG pCO2 VBG pO2 VBG HCO3 VBG Total CO2 VBG O2 Saturation VBG Base Excess VBG Lactate Sodium Potassium Chloride Carbon Dioxide Anion Gap BUN Creatinine Estimated GFR/1.73 m2 Glucose Calcium Magnesium Total Bilirubin Conjugated Bilirubin AST ALT Alkaline Phosphatase Lactate Dehydrogenase Total Protein Albumin TSH Urine Color Urine Clarity Urine pH Ur Specific [place] Urine Protein Urine Ketones Urine Blood Urine Nitrite Urine Bilirubin Urine Urobilinogen Ur Leukocyte Esterase Urine RBC Urine WBC Ur Epithelial Cells Urine Crystals Urine Bacteria Urine Casts Urine Mucus Ur Culture Indicated? Urine Glucose COVID-19 Source SARS-CoV-2 (PCR) Patient ABO/Rh O Positive Antibody Screen Negative 01/28/21 01/28/21 01/28/21 16:30 16:30 18:53 WBC RBC Hgb Hct MCV MCH MCHC RDW Plt Count MPV Immature Gran % Neutrophils % Lymphocytes % Monocytes % Eosinophils % Basophils % Nucleated RBC % Absolute Neutrophils Absolute Lymphocytes Absolute Monocytes Absolute Eosinophils Absolute Basophils RBC Morphology PT INR APTT Fibrinogen 454 H VBG pH VBG pCO2 VBG pO2 VBG HCO3 VBG Total CO2 VBG O2 Saturation VBG Base Excess VBG Lactate Sodium Potassium Chloride Carbon Dioxide Anion Gap BUN Creatinine Estimated GFR/1.73 m2 Glucose Calcium Magnesium Total Bilirubin Conjugated Bilirubin AST ALT Alkaline Phosphatase Lactate Dehydrogenase 178 Total Protein Albumin TSH Urine Color Urine Clarity Urine pH Ur Specific [place] Urine Protein Urine Ketones Urine Blood Urine Nitrite Urine Bilirubin Urine Urobilinogen Ur Leukocyte Esterase Urine RBC Urine WBC Ur Epithelial Cells Urine Crystals Urine Bacteria Urine Casts Urine Mucus Ur Culture Indicated? Urine Glucose COVID-19 Source Nasal/nares SARS-CoV-2 (PCR) Negative Patient ABO/Rh Antibody Screen 01/29/21 01/29/21 01/29/21 06:41 06:41 08:01 WBC 6.22 D RBC 4.44 Hgb 11.4 L Hct 36.9 L MCV 83.1 MCH 25.7 L MCHC 30.9 L RDW 14.2 H Plt Count 1 L* D MPV Immature Gran % 0.6 Neutrophils % 84.1 Lymphocytes % 12.5 Monocytes % 1.4 Eosinophils % 0.6 Basophils % 0.8 Nucleated RBC % 0 Absolute Neutrophils 5.23 Absolute Lymphocytes 0.78 L Absolute Monocytes 0.09 L Absolute Eosinophils 0.04 Absolute Basophils 0.05 RBC Morphology PT INR APTT Fibrinogen VBG pH VBG pCO2 VBG pO2 VBG HCO3 VBG Total CO2 VBG O2 Saturation VBG Base Excess VBG Lactate Sodium Potassium Chloride Carbon Dioxide Anion Gap BUN Creatinine Estimated GFR/1.73 m2 Glucose Calcium Magnesium Total Bilirubin Conjugated Bilirubin AST ALT Alkaline Phosphatase Lactate Dehydrogenase Total Protein Albumin TSH 0.78 Urine Color Yellow Urine Clarity Clear Urine pH 6.0 Ur Specific [place] 1.025 Urine Protein 30 H Urine Ketones Negative Urine Blood Large H Urine Nitrite Negative Urine Bilirubin Negative Urine Urobilinogen 0.2 Ur Leukocyte Esterase Negative Urine RBC >50 H Urine WBC 5-10 Ur Epithelial Cells Rare Urine Crystals Negative Urine Bacteria Many Urine Casts 0-2 coarse granular Urine Mucus Moderate Ur Culture Indicated? Yes Urine Glucose Negative COVID-19 Source SARS-CoV-2 (PCR) Patient ABO/Rh Antibody Screen
[2021-01-29 15:34] VITALS: BP 135/67; PULSE 73; RESP 16; TEMP 36.4; O2SAT 95
[2021-01-29] MEDS: Insulin Aspart 300 UNITS/3 ML PEN SC ×2 (18:00→20:56)
[2021-01-29] MEDS: Famotidine 20 MG TAB 40 MG PO (20:55)
[2021-01-29 23:37] VITALS: BP 152/72; PULSE 78; RESP 18; TEMP 36.4; O2SAT 98
[2021-01-30] MEDS: Atorvastatin 40 MG TAB PO (07:43)
[2021-01-30] MEDS: Cyanocobalamin 500 MCG TAB PO (07:43)
[2021-01-30] MEDS: amLODIPine 10 MG TAB PO (07:43)
[2021-01-30] MEDS: Dexamethasone 4 MG TAB 40 MG PO (07:43)
[2021-01-30] MEDS: Lisinopril 20 MG TAB 40 MG PO (07:43)
[2021-01-30 07:47] VITALS: BP 142/68; PULSE 62; RESP 17; TEMP 36.9; O2SAT 98
[2021-01-30 07:48] LABS: Abs Immature Grans 0.09 10^3/uL (0.0-0.06); Absolute Basophil Count 0.03 10^3/uL (0.0-0.2); Absolute Monocyte Count 0.77 10^3/uL (0.1-0.8); Absolute Neutrophil Count 12.62 10^3/uL (1.2-6.7); Basophils % 0.2; HCT 33.9 % (40.0-50.0); Immature Grans % 0.6; Lymphocytes % 8.8; MCH 26.4 pg (27.0-33.0); MCHC 32.4 % (32.0-36.0); MCV 81.5 fL (80-95); Monocytes % 5.2; Neutrophils % 85.2; Nucleated RBC 0 %; RBC 4.16 10^6/uL (4.36-5.78); RDW 14.2 % (11.8-14.1); RDW-SD 41.8 fL; WBC 14.81 10^3/uL (4.4-10.8)
[2021-01-30] MEDS: Insulin Aspart 300 UNITS/3 ML PEN SC ×4 (07:48→21:09)
[2021-01-30 08:22] LABS: Platelet Count 3 10^3/uL (130-400)
[2021-01-30 08:23] LABS: Diff Comment Diff Reviewed; RBC Morphology Normal
--- NOTE | 2021-01-30 11:48 | CMPROGNOTE_ITS ---
- If Service Date Differs Date of service: 01/30/21 Time of Service: 11:48 Care Management Progress Note S/O: Noe is sitting in a chair watching television when CM comes to meet with him. He is pleasant, talkative, and shares he is hopeful he will be able to return home in the next day or two. His platelet count today remains low at 3 but is slowly improving. His WBC is high at 14.81, RBC low at 4.16, and Fibrinogen high at 454. CM will continue to follow. A: Jens is a 71 year old male admitted to [facility] on 01/28/2021 for ITP. P: No change in plan. Anticipate Noe will be discharged home with no new services when medically cleared by provider. He will follow up with his PCP and discharge plan of care as directed. His will drive him home via private vehicle when ready. CM will continue to follow.
[2021-01-30 15:28] VITALS: BP 147/74; PULSE 76; RESP 17; TEMP 37.3; O2SAT 97
--- NOTE | 2021-01-30 16:08 | W.PM.PROGNOT ---
Date of Service Date of service: 01/30/21 Time of Service: 16:09 Assessment and Plan Assessment and plan (1) Acute ITP: Status: Acute Assessment and plan: await viral, immunologic studies and flow cytometry. Pharmacist made a [facility] report yesterday . cont. dexamethasone 40 mg daily. Platelets are now at 3,000 (2) Prediabetes: Status: Chronic Assessment and plan: monitor glucose AC/HS; may need coverage from elevated readings d/t dexamethasone. glucose is running in the 150 to 200 range. He is on insulin sensitive sliding scale. I have added NPH to cover his dexamethasone (3) Essential hypertension: Status: Chronic Assessment and plan: cont. norvasc and lisinopril. hold chlorthalidone. (4) Abnormal CT scan, chest: Status: Acute Assessment and plan: peripheral ground glass opacities, probably represent residual from his recent pneumonia. Will arrange follow up HCT in 4 to 6 weeks. If no improvement then he ought to see pulmonology. Subjective Subjective Interval history since last seen: Patient states he still has some mild epistaxis if he sneezes or bends over to put his shoe on. However I found out that he has been putting tissues up into his nose. I told him to discontinue that but if he has any epistaxis he should take a cool washcloth and compress his nares together. I will order some saline nasal spray to prevent drying and bleeding. He feels that the tongue lesions are better he has had no bleeding from his gums or his mouth and has not noticed any gross hematuria or hematochezia. He still has petechiae. He remains on Decadron 40 mg daily and his platelet count is now up to 3000. I told him I would like his platelet count around 20,000 at which point he would be out of the danger zone for concern for spontaneous bleeding. Exam Narrative Exam Narrative: Elderly gentleman who is alert and oriented person place time circumstance sitting up in his chair. HEENT is remarkable for some dried crusted blood in his nares. Oropharynx has some petechiae and purpura that is getting smaller. Skin reveals petechiae over his arms chest and legs. Objective Last Vital Signs Temp 37.3 C 01/30/21 15:28 Pulse 76 01/30/21 15:28 Resp 17 01/30/21 15:28 BP 147/74 H 01/30/21 15:28 Pulse Ox 97 01/30/21 15:28 Laboratory Results - last 24 hr 01/30/21 06:50 WBC 14.81 H D RBC 4.16 L Hgb 11.0 L Hct 33.9 L MCV 81.5 MCH 26.4 L MCHC 32.4 RDW 14.2 H Plt Count 3 L* D MPV Immature Gran % 0.6 Neutrophils % 85.2 Lymphocytes % 8.8 Monocytes % 5.2 Eosinophils % 0.0 Basophils % 0.2 Nucleated RBC % 0 Absolute Neutrophils 12.62 H Absolute Lymphocytes 1.30 Absolute Monocytes 0.77 Absolute Eosinophils 0.00 Absolute Basophils 0.03 RBC Morphology Normal
[2021-01-30] MEDS: Insulin NPH-Human 300 UNITS/3 ML PEN 15 UNIT SC (18:22)
[2021-01-30] MEDS: Famotidine 20 MG TAB 40 MG PO (21:09)
[2021-01-31] VITALS (11 sets, daily range): BP systolic 138–157; BP diastolic 66–86; PULSE 50–75; RESP 16–18; TEMP 35.5–37.1; O2SAT 96–98
[2021-01-31 06:42] LABS: Abs Immature Grans 0.13 10^3/uL (0.0-0.06); Absolute Basophil Count 0.01 10^3/uL (0.0-0.2); Absolute Monocyte Count 0.78 10^3/uL (0.1-0.8); Absolute Neutrophil Count 10.39 10^3/uL (1.2-6.7); Basophils % 0.1; HCT 32.7 % (40.0-50.0); HGB 10.4 g/dL (13.5-17.5); Lymphocytes % 11.2; MCH 25.7 pg (27.0-33.0); MCHC 31.8 % (32.0-36.0); MCV 80.7 fL (80-95); Monocytes % 6.1; Neutrophils % 81.6; Nucleated RBC 0 %; RBC 4.05 10^6/uL (4.36-5.78); RDW 14.3 % (11.8-14.1); RDW-SD 41.2 fL; WBC 12.73 10^3/uL (4.4-10.8)
[2021-01-31 07:04] LABS: Absolute Lymphocyte Count 1.43 10^3/uL (1.2-3.4)
[2021-01-31 07:08] LABS: Diff Comment PLT Morph Reviewed; Platelet Count 5 10^3/uL (130-400); RBC Morphology Normal
[2021-01-31] MEDS: Cyanocobalamin 500 MCG TAB PO (07:56)
[2021-01-31] MEDS: Atorvastatin 40 MG TAB PO (07:56)
[2021-01-31] MEDS: Dexamethasone 4 MG TAB 40 MG PO (07:56)
[2021-01-31] MEDS: Insulin NPH-Human 300 UNITS/3 ML PEN 15 UNIT SC ×2 (07:56→17:07)
[2021-01-31 08:59] LABS: Homocysteine 9.8 umol/L (5.0-13.9)
[2021-01-31] MEDS: Lisinopril 20 MG TAB 40 MG PO (10:10)
[2021-01-31] MEDS: amLODIPine 10 MG TAB PO (10:10)
[2021-01-31 10:52] LABS: Hepatitis C Ab w Rflx HCV PCR Negative (Negative)
[2021-01-31 11:09] LABS: HIV-1/2 Ag & Ab Screen Negative (Negative)
[2021-01-31] MEDS: Insulin Aspart 300 UNITS/3 ML PEN SC ×3 (11:55→21:23)
--- NOTE | 2021-01-31 11:58 | PGE_ITS ---
Date of Service Date of service: 01/31/21 Time of Service: 11:58 Assessment and Plan Assessment and plan (1) Acute ITP: Status: Acute Assessment and plan: continue dexamethasone 40 mg daily, add IVIG @ 1 gm/kg daily; continue hospitalization until platelets are stable at 50,000 or more. (2) Prediabetes: Status: Chronic Assessment and plan: monitor glucose AC/HS; may need coverage from elevated readings d/t dexamethasone. glucose is running in the 150 to 200 range. He is on insulin sensitive sliding scale. I have added NPH to cover his dexamethasone (3) Essential hypertension: Status: Chronic Assessment and plan: cont. norvasc and lisinopril. hold chlorthalidone. (4) Abnormal CT scan, chest: Status: Acute Assessment and plan: peripheral ground glass opacities, probably represent residual from his recent pneumonia. Will arrange follow up HCT in 4 to 6 weeks. If no improvement then he ought to see pulmonology. Subjective Subjective Interval history since last seen: Patient states he has had no further nosebleeds and denies any hematuria or hematochezia. He denies any headaches or shortness of breath or chest pain or abdominal pain. Still has petechiae on his legs and trunk. He states he feels well. This is his fourth day of Decadron 40 mg daily as platelet counts only up to 5000. I spoke with Dr. Alaniz, sail finisher hand from [facility] who recommends that we begin IVIG at 1 gm/kg daily until his platelet count is 50,000. He should remain hospitalized until platelet counts remain stable for 24 to 48 hr after completion of IVIG. Exam Narrative Exam Narrative: Obese elderly male sitting up in his chair watching baseball game. He is alert and oriented person place time circumstance. HEENT no further epistaxis, mouth w/ purpuric lesions that are diminishing in size. no gingival bleeding. Lungs: clear Heart: RRR Abdomen: soft, nontender Extremities: still w/ petechial rash over tibia Objective Last Vital Signs Temp 35.5 C L 01/31/21 07:51 Pulse 66 01/31/21 10:00 Resp 18 01/31/21 07:51 BP 154/86 H 01/31/21 10:00 Pulse Ox 98 01/31/21 07:51 Laboratory Results - last 24 hr 01/29/21 01/29/21 01/31/21 06:41 06:41 06:05 WBC 12.73 H RBC 4.05 L Hgb 10.4 L Hct 32.7 L MCV 80.7 MCH 25.7 L MCHC 31.8 L RDW 14.3 H Plt Count 5 L* D MPV Immature Gran % 1.0 Neutrophils % 81.6 Lymphocytes % 11.2 Monocytes % 6.1 Eosinophils % 0.0 Basophils % 0.1 Nucleated RBC % 0 Absolute Neutrophils 10.39 H Absolute Lymphocytes 1.43 Absolute Monocytes 0.78 Absolute Eosinophils 0.00 Absolute Basophils 0.01 RBC Morphology Normal Homocysteine 9.8 Hepatitis C Antibody Negative
[2021-01-31] MEDS: diphenhydrAMINE 25 MG CAP 50 MG PO (12:59)
[2021-01-31] MEDS: Acetaminophen 500 MG TAB 1000 MG PO (12:59)
[2021-01-31] MEDS: IMMUNE GLOBULIN 20 GM/200 ML BTL IVPB (13:43)
[2021-01-31] MEDS: IMMUNE GLOBULIN 80 GM/800 ML BTL IVPB (15:03)
[2021-01-31 16:18] LABS: Leukemia/Lymphoma by FC (Blood See Comments
--- NOTE | 2021-01-31 19:34 | PDOC.CMPRO ---
- If Service Date Differs Date of service: 01/31/21 Time of Service: 19:35 Care Management Progress Note S/O: Noe was sitting up in his chair when CM met with him. He reported that he feels great, doesn't feel sick at all. He reports that he has been kept busy by nursing, but is very pleasant and engaged in conversation. He states that he is independent and does not need anything at this time. He is happy with the care he is receiving at [facility]. Per RN, he will remain at [facility] until his platelet count is above 20. It is currently at 5. CM will continue to follow. A: Jens is a 71 year old male admitted to [facility] on 01/28/2021 for ITP. P: No change in plan. Anticipate Noe will be discharged home with no new services when medically cleared by provider. He will follow up with his PCP and discharge plan of care as directed. His will drive him home via private vehicle when ready. CM will continue to follow.
[2021-01-31 20:36] LABS: HIT ELISA 0.086 OD (<0.400); HIT Interpretation Negative (Negative)
[2021-01-31] MEDS: Famotidine 20 MG TAB 40 MG PO (21:21)
[2021-02-01] VITALS (10 sets, daily range): BP systolic 126–153; BP diastolic 65–79; PULSE 47–70; RESP 15–18; TEMP 35.8–37; O2SAT 96–100
[2021-02-01 08:02] LABS: HCT 33.1 % (40.0-50.0); HGB 10.4 g/dL (13.5-17.5); MCH 25.7 pg (27.0-33.0); MCHC 31.4 % (32.0-36.0); MCV 81.9 fL (80-95); RBC 4.04 10^6/uL (4.36-5.78); RDW 14.2 % (11.8-14.1); RDW-SD 41.2 fL; WBC 13.76 10^3/uL (4.4-10.8)
[2021-02-01] MEDS: Dexamethasone 4 MG TAB 40 MG PO (08:14)
[2021-02-01] MEDS: Lisinopril 20 MG TAB 40 MG PO (08:14)
[2021-02-01] MEDS: Cyanocobalamin 500 MCG TAB PO (08:14)
[2021-02-01] MEDS: amLODIPine 10 MG TAB PO (08:14)
[2021-02-01] MEDS: Insulin NPH-Human 300 UNITS/3 ML PEN 15 UNIT SC ×2 (08:14→17:18)
[2021-02-01] MEDS: Atorvastatin 40 MG TAB PO (08:14)
[2021-02-01 08:20] LABS: Platelet Count 34 10^3/uL (130-400)
[2021-02-01 11:29] LABS: Parvovirus B19 By Rapid PCR, P Negative (Negative); Source PLASMA
--- NOTE | 2021-02-01 11:48 | W.INDIABCONS ---
Date of service: 02/01/21 Time of Service: 11:48 Diabetes Inpatient Consult DESCRIPTION/ASSESSMENT: 71 year old male admitted with PNA with hx of pre DM (most recent A1c: 6.4%), HTN, HLD, B12 def anemia. 30 lbs wieght loss noted in last 4 months, intentional (stopped drinking beer). Has been reducing intake of simple sugars and intends to continue with weight loss until under 200 lbs. Following regular meal plan with adequate intake. Answered questions re: strategies to normalize glycemic control. Expect Jens will continue to make positive changes for his health. Will be available prn. Time Spent in Nutritional Counseling and Treatment: 10
[2021-02-01] MEDS: Insulin Aspart 300 UNITS/3 ML PEN SC ×3 (12:02→22:22)
[2021-02-01] MEDS: diphenhydrAMINE 25 MG CAP 50 MG PO (12:28)
[2021-02-01 12:29] LABS: EBV EA IgG Negative (Negative)
[2021-02-01] MEDS: Acetaminophen 500 MG TAB 1000 MG PO (12:29)
[2021-02-01] MEDS: IMMUNE GLOBULIN 20 GM/200 ML BTL IVPB (13:30)
[2021-02-01 14:33] LABS: M. pneumoniae Ab, IgG Positive (Negative); M. pneumoniae Ab, IgM Negative (Negative)
[2021-02-01] MEDS: IMMUNE GLOBULIN 40 GM/400 ML BTL IVPB ×2 (14:50→15:59)
--- NOTE | 2021-02-01 15:23 | W.PM.PROGNOT ---
Date of Service Date of service: 02/01/21 Time of Service: 15:23 Assessment and Plan Assessment and plan (1) Acute ITP: Status: Acute Assessment and plan: We will discontinue his dexamethasone at this point but continue IVIG at 1 g/kg daily until his platelet count is 50,000 or higher at which point we will stop the IVIG and monitor him for 24 hours. If he has a relapse he may need rituximab (2) Prediabetes: Status: Chronic Assessment and plan: Continue basal bolus insulin and discontinue his dexamethasone. Monitor blood sugars before meals and at bedtime. (3) Essential hypertension: Status: Chronic Assessment and plan: cont. norvasc and lisinopril. hold chlorthalidone. (4) Abnormal CT scan, chest: Status: Acute Assessment and plan: peripheral ground glass opacities, probably represent residual from his recent pneumonia. Will arrange follow up HCT in 4 to 6 weeks. If no improvement then he ought to see pulmonology. Subjective Subjective Interval history since last seen: Patient is doing markedly better today. He has had no further nosebleeds and no bleeding of his tongue or his gums. He denies any hematuria or hematochezia. And just some slight hoarseness this morning but even asked better. No dyspnea or chest pain or headaches. Today is day #2 of IVIG treatment for his ITP. He started his first treatment yesterday and his platelets are up to 34,000. H&H is holding stable at 10.4 g and 33%. We will continue the IVIG until his platelet count reaches 50,000 at which point we will start the IVIG and monitor his platelet count for 24 hours before discharging him home. Exam Narrative Exam Narrative: Elderly male sitting up in his chair alert and oriented person place time circumstance. HEENT reveals no epistaxis. Skin exam reveals residual petechiae on his legs but the petechiae on his chest and arms are fading. Lungs are clear to auscultation heart is regular rate and rhythm abdomen is soft and nontender Objective Last Vital Signs Temp 36.5 C 02/01/21 15:00 Pulse 62 02/01/21 15:00 Resp 16 02/01/21 15:00 BP 138/70 02/01/21 15:00 Pulse Ox 98 02/01/21 15:00 Laboratory Results - last 24 hr 01/29/21 01/29/2121 06:41 06:41 06:41 WBC RBC Hgb Hct MCV MCH MCHC RDW Plt Count MPV Hep-Induced Plt Ab Meaghan Heparin-PF4 Ab Inhibit Heparin-PF4 Ab Interp Heparin-PF4 Ab Comment Lymph/Leukemia Panel EBV Early Antigen IgG Negative M. pneumoniae Interp See below Mycoplasma pneumon IgG Positive A Mycoplasma pneumon IgM Negative Parvovirus Source Plasma Parvov B19 DNA Rpd PCR Negative 01/30/21 01/30/21 02/01/21 06:50 06:50 07:55 WBC 13.76 H RBC 4.04 L Hgb 10.4 L Hct 33.1 L MCV 81.9 MCH 25.7 L MCHC 31.4 L RDW 14.2 H Plt Count 34 L D MPV Hep-Induced Plt Ab [place] 0.086 Heparin-PF4 Ab Inhibit Not Applicable Heparin-PF4 Ab Interp Negative Heparin-PF4 Ab Comment See comment Lymph/Leukemia Panel See comments EBV Early Antigen IgG M. pneumoniae Interp Mycoplasma pneumon IgG Mycoplasma pneumon IgM Parvovirus Source Parvov B19 DNA Rpd PCR
[2021-02-01 15:32] LABS: Helicobacter pylori Ag, Feces Negative (Negative)
[2021-02-01 16:06] LABS: Parvovirus B19 Ab, IgG Positive (Negative); Parvovirus B19 Ab, IgM Negative (Negative)
[2021-02-01 16:56] LABS: Phospholipid Ab, IgG <9.4 GPL; Phospholipid Ab, IgM <9.4 MPL
--- NOTE | 2021-02-01 18:26 | PDOC.CMPRO ---
- If Service Date Differs Date of service: 02/01/21 Time of Service: 18:26 Care Management Progress Note S/O: Noe was sitting up in his chair when CM met with him. He reported that he continues to feel well. He stated that, per MD, he would have another infusion today, and will be monitored for a day or two to see if his labs continue to stabilize. He reported that he is unsure if this was a reaction to his Covid 19 vaccine, but he is still glad to have received the vaccine, and would get a booster if needed, as he now knows what to look for as side effects. CM will continue to follow. A: Jens is a 71 year old male admitted to [facility] on 01/28/2021 for ITP. P: No change in plan. Anticipate Noe will be discharged home with no new services when medically cleared by provider. He will follow up with his PCP and discharge plan of care as directed. His will drive him home via private vehicle when ready. CM will continue to follow.
[2021-02-01] MEDS: Famotidine 20 MG TAB 40 MG PO (22:21)
[2021-02-02 00:12] VITALS: BP 148/69; PULSE 59; RESP 18; TEMP 36.5; O2SAT 99
[2021-02-02 07:32] LABS: Abs Immature Grans 0.41 10^3/uL (0.0-0.06); Absolute Basophil Count 0.02 10^3/uL (0.0-0.2); Absolute Lymphocyte Count 1.66 10^3/uL (1.2-3.4); Absolute Monocyte Count 1.11 10^3/uL (0.1-0.8); Absolute Neutrophil Count 12.59 10^3/uL (1.2-6.7); Basophils % 0.1; Eosinophils % 0.1; HCT 32.4 % (40.0-50.0); HGB 10.4 g/dL (13.5-17.5); Immature Grans % 2.6; Lymphocytes % 10.5; MCH 26.3 pg (27.0-33.0); MCHC 32.1 % (32.0-36.0); MPV 12.8 fL (8.0-11.0); Neutrophils % 79.7; Nucleated RBC 0 %; RBC 3.95 10^6/uL (4.36-5.78); RDW 14.2 % (11.8-14.1); RDW-SD 41.5 fL
[2021-02-02 07:39] LABS: Absolute Eosinophil Count 0.02 10^3/uL (0.0-0.7)
[2021-02-02] MEDS: Insulin Aspart 300 UNITS/3 ML PEN SC ×4 (07:53→22:50)
[2021-02-02] MEDS: Atorvastatin 40 MG TAB PO (07:54)
[2021-02-02] MEDS: Cyanocobalamin 500 MCG TAB PO (07:54)
[2021-02-02] MEDS: amLODIPine 10 MG TAB PO (07:54)
[2021-02-02] MEDS: Lisinopril 20 MG TAB 40 MG PO (07:54)
[2021-02-02 07:59] LABS: Diff Comment Diff Reviewed
[2021-02-02 08:00] LABS: Polychromasia Present
[2021-02-02 08:01] LABS: Platelet Count 94 10^3/uL (130-400)
[2021-02-02 08:47] VITALS: BP 161/71; PULSE 55; RESP 19; TEMP 36.3; O2SAT 98
[2021-02-02] MEDS: Insulin NPH-Human 300 UNITS/3 ML PEN 15 UNIT SC ×2 (09:23→17:08)
--- NOTE | 2021-02-02 16:04 | W.PM.PROGNOT ---
Date of Service Date of service: 02/02/21 Time of Service: 16:04 Assessment and Plan Assessment and plan (1) Acute ITP: Status: Acute Assessment and plan: Hold IVIG and repeat platelet count in the morning. As long as his platelet counts are not falling and they remain greater than 50,000 he can return home. Repeat CBC within a week and follow-up with hematology as an outpatient. (2) Prediabetes: Status: Chronic Assessment and plan: Continue basal bolus insulin and discontinue his dexamethasone. Monitor blood sugars before meals and at bedtime. Blood glucose levels are acceptable between 149 and 177 today. (3) Essential hypertension: Status: Chronic Assessment and plan: cont. norvasc and lisinopril. hold chlorthalidone. I suspect some of his hypertensive response is secondary to the steroids and IVIG. (4) Abnormal CT scan, chest: Status: Acute Assessment and plan: peripheral ground glass opacities, probably represent residual from his recent pneumonia. Will arrange follow up HCT in 4 to 6 weeks. If no improvement then he ought to see pulmonology. Given his abnormal mycoplasma IgG level he very well may have had a mycoplasma pneumonia. He recovered from this about 8 weeks ago. We will get a follow-up high-resolution CT scan in 4 to 6 weeks post discharge. Subjective Subjective Interval history since last seen: Patient continues to improve with no further episodes of epistaxis no oral mucosal bleeding no gingival bleeding and no hematuria or hematochezia. Platelet count is up to 94,000. Some of the send out tests are coming back negative including negative for HIV or hepatitis or EBV. However he has evidence of a previous mycoplasma infection as well as previous parvo virus infection. I told Mr. Sellers that we would watch him overnight and not give him any IVIG today and if his platelet count remains elevated tomorrow he can go home with a follow-up with hematology. Exam Narrative Exam Narrative: Well-developed elderly male alert and oriented person place time circumstance sitting up in his chair watching TV. HEENT there is no facial petechiae no epistaxis. Oropharynx shows resolving purpuric lesion on his soft palate. There is no gingival bleeding. Examination of his skin shows fading petechiae over his legs and the purpuric lesion on his left arm is resolving as is the bruising on his forearm. Objective Last Vital Signs Temp 36.3 C L 02/02/21 08:47 Pulse 55 L 02/02/21 08:47 Resp 19 02/02/21 08:47 BP 161/71 H 02/02/21 08:47 Pulse Ox 98 02/02/21 08:47 Laboratory Results - last 24 hr 01/29/21 01/29/21 01/29/21 06:41 06:41 14:40 WBC RBC Hgb Hct MCV MCH MCHC RDW Plt Count MPV Immature Gran % Neutrophils % Lymphocytes % Monocytes % Eosinophils % Basophils % Nucleated RBC % Absolute Neutrophils Absolute Lymphocytes Absolute Monocytes Absolute Eosinophils Absolute Basophils RBC Morphology Polychromasia Stool H. pylori Ag Negative Phospholipid IgG Ab <9.4 Phospholipid IgM Ab <9.4 Parvovirus B19 IgG Ab Positive A Parvovirus B19 IgM Ab Negative Parvovirus Interpret See below 02/02/21 06:30 WBC 15.80 H RBC 3.95 L Hgb 10.4 L Hct 32.4 L MCV 82.0 MCH 26.3 L MCHC 32.1 RDW 14.2 H Plt Count 94 L D MPV 12.8 H Immature Gran % 2.6 Neutrophils % 79.7 Lymphocytes % 10.5 Monocytes % 7.0 Eosinophils % 0.1 Basophils % 0.1 Nucleated RBC % 0 Absolute Neutrophils 12.59 H Absolute Lymphocytes 1.66 Absolute Monocytes 1.11 H Absolute Eosinophils 0.02 Absolute Basophils 0.02 RBC Morphology See below Polychromasia Present Stool H. pylori Ag Phospholipid IgG Ab Phospholipid IgM Ab Parvovirus B19 IgG Ab Parvovirus B19 IgM Ab Parvovirus Interpret
[2021-02-02 16:08] VITALS: BP 146/70; PULSE 60; RESP 18; TEMP 36; O2SAT 96
--- NOTE | 2021-02-02 16:14 | CHAPLAIN ---
Jens was sitting up in his chair when I visited. He said he is feeling good, and is the healthiest matt in here. He's been in touch with his family by phone and is comfortable being here.
[2021-02-02 16:19] LABS: Methylmalonic Acid 0.19 nmol/mL (<=0.40)
--- NOTE | 2021-02-02 17:09 | PDOC.CMPRO ---
- If Service Date Differs Date of service: 02/02/21 Time of Service: 17:09 Care Management Progress Note S/O: Noe was sitting up in his chair watching last night's baseball game when CM met with him. He reported that he continues to feel well. He stated that he hopes to be discharged home tomorrow, if his platelet count remains stable. Per report, his level will be checked again tomorrow, and he may be ready to discharge in the afternoon. CM will continue to follow. A: Jens is a 71 year old male admitted to [facility] on 01/28/2021 for ITP. P: No change in plan. Anticipate Noe will be discharged home with no new services when medically cleared by provider. He will follow up with his PCP and discharge plan of care as directed. His will drive him home via private vehicle when ready. CM will continue to follow.
[2021-02-02] MEDS: Famotidine 20 MG TAB 40 MG PO (22:49)
[2021-02-03 04:07] VITALS: BP 176/73; PULSE 50; RESP 18; TEMP 36.5; O2SAT 96
[2021-02-03 07:09] LABS: Abs Immature Grans 0.35 10^3/uL (0.0-0.06); Absolute Basophil Count 0.03 10^3/uL (0.0-0.2); Absolute Eosinophil Count 0.22 10^3/uL (0.0-0.7); Absolute Lymphocyte Count 2.92 10^3/uL (1.2-3.4); Absolute Neutrophil Count 8.28 10^3/uL (1.2-6.7); Basophils % 0.2; Eosinophils % 1.7; HCT 37.7 % (40.0-50.0); HGB 11.7 g/dL (13.5-17.5); Immature Grans % 2.7; Lymphocytes % 22.3; MCH 25.7 pg (27.0-33.0); MCV 82.9 fL (80-95); MPV 10.5 fL (8.0-11.0); Monocytes % 9.9; Neutrophils % 63.2; Nucleated RBC 1 %; Platelet Count 187 10^3/uL (130-400); RBC 4.55 10^6/uL (4.36-5.78); RDW 14.9 % (11.8-14.1); RDW-SD 42.6 fL
[2021-02-03 07:51] VITALS: BP 146/72; PULSE 56; RESP 17; TEMP 36.9; O2SAT 98
[2021-02-03] MEDS: Lisinopril 20 MG TAB 40 MG PO (08:46)
[2021-02-03] MEDS: Cyanocobalamin 500 MCG TAB PO (08:46)
[2021-02-03] MEDS: Insulin NPH-Human 300 UNITS/3 ML PEN 15 UNIT SC (08:46)
[2021-02-03] MEDS: Atorvastatin 40 MG TAB PO (08:46)
[2021-02-03] MEDS: amLODIPine 10 MG TAB PO (08:46)
--- NOTE | 2021-02-03 12:48 | DSE_ITS ---
Date of service: 02/03/21 Time of Service: 12:49 DS: Diagnosis Discharge Diagnosis (1) Acute ITP: Status: Resolved Asessment and Plan: Patient presented to the hospital with mucocutaneous bleeding including epistaxis and bleeding of his gums and tongue and along with petechiae on his chest arms and legs. Platelet count was found to be 0 on admission. Patient was started on Decadron 40 mg daily which she received for 5 days. Platelet count only came up to 5000 by his fourth hospital day. Patient was subsequently started on IVIG at a dose of 1 g/kg/day with subsequent rise of his platelet count up to 94,000 at which point IVIG was discontinued and his platelet count remained elevated at 187,000 on discharge. No etiology for his ITP was found. Pending studies include tick panel. His ITP was reported to the vaccine adverse emergency reporting system. Patient needs follow-up with hematology at [facility] which has yet to be scheduled. He will get a repeat CBC 4 days after discharge and periodic CBC should be monitored subsequently. Studies for HCV and HIV were negative. EBV was negative. Stool for H. pylori was negative. No other blood cell dyscrasias w ere noted on his peripheral smear. Flow cytometry was negative. Platelet factor 4 complex immunoglobulins was negative. Therefore this did not have the appearance of a HIT reaction. At this time tick studies are still pending (2) Prediabetes: Status: Chronic Asessment and Plan: Blood sugars ariane as expected with treatment with Decadron and patient was treated with basal bolus insulin. The time of discharge his blood sugars are running in the 80s to 90s. (3) Essential hypertension: Status: Chronic Asessment and Plan: No change was made in his blood pressure medications. (4) Abnormal CT scan, chest: Status: Acute Asessment and Plan: CT scan on admission showed bilateral predominantly peripheral pulmonary opacities and associated pleural effusions. The radiologist clinical impression was an infectious process however they indicated that neoplasia cannot be excluded. He has some mild prominent mediastinal lymph nodes at multiple sites and the largest pretracheal lymph node measured 21 mm. Of note flow cytometry showed no blasts or nor immunophenotypic evidence of a clonal cell population. It is recommended that the patient have a follow-up high-resolution CT scan in 3 weeks. If he still demonstrating peripheral nodularity then he should be referred to a co founder for further evaluation including fiberoptic bronchoscopy with biopsy and/or mediastinoscopy for lymph node biopsy. Discharge Plan Disposition Patient Disposition: HOME Condition: Improving Discharge Details Reason For Visit: ITP Admit Date/Time: 01/30/21 15:33 Admit Provider: Leroy Bowman Attending Provider: Leroy Bowman Primary Care Provider: [facility] Course Hospital Course: 71-year-old male with a past medical history of hypertension, hyperlipidemia, prediabetes, tubular adenoma and recently diagnosed with an atypical pneumonia from December 12 through December 14, 2020 where he was treated with 3 days of ceftriaxone and doxycycline and steroids and beta agonist nebulizers as an inpatient and upon discharge was sent home on 3-day course of Cefpodoxime and doxycycline and prednisone. Symptoms of cough and dyspnea had improved and he completed his COVID-19 vaccination with Maduri vaccine on January 10, 2021. Since discharge she had no fevers or rigors but 2 nights prior to current admission he developed epistaxis and on the day of admission he noticed some blood blisters on the skin and petechia over his legs and blood blisters in his mouth and bleeding of the gums. He has had no hematuria or hematochezia. He went to see his PCP on the day of admission who did a pro time with an INR 1.2 but was sent to the ER for further evaluation. Upon evaluation emergency department routine labs include CBC, CMP, fibrinogen, pro time, APTT, PCR for SARS-CoV-2. He was negative for SARS-CoV-2 but his CBC showed a severe thrombocytopenia with a platelet count of 0 with a normal white blood cell count of 11,000 and hemoglobin 11.9 g. Pro time and APTT and fibrinogen were all normal. Review of his medication showed no medications associated with thrombocytopenia. CT of his chest abdomen pelvis were done on admission out of concern from his last chest x-ray on January 26, 2021 that suggested a left upper lobe peripheral nodular noncalcified mass. Radiologist's impression was that he has bilateral predominantly peripheral pulmonary opacities associated with pleural effusions findings were consistent with an infectious process however other etiologies include neoplasia cannot be excluded. No dominant mass was seen. Clinically the patient was not demonstrating any symptoms for pulmonary infection such as cough or sputum production or fever or rigors. He had no hypoxemia. Patient was admitted to the hospital for further evaluation of his thrombocytopenia. Work-up included flow cytometry, platelet factor 4 antibodies, EBV antibodies, hepatitis C, HIV, mycoplasma IgG and IgM, parvovirus rapid PCR and IgM and IgG, stool for H. pylori. His antibody panels showed evidence of prior myoplasma and parvo virus infection but was negative for HCV and HIV and his stool was negative for H. pylori. Tick panel was not ordered until the end of his stay and is pending at this time. Flow cytometery showed no blasts nor any immunophenotypic evidence for clonal cell population. Peripher smear had shown severe thrombocytopenia w/out blasts The patient was treated w/ 5 days of high dose decadron 40 mg daily. However his platelet counts only came up to 5000 by 01/31/21. [facility] hematology was consulted (Dr. Alaniz) on 01/31 and it was decided to proceed w/ IVIG infusion at 1 gm/kg daily for 2 to 3 days until his platelet count is 50,000 or higher. He received IVIG from 01/31 through 02/01/21 and his platelets ariane to 34,000 on 02/01 and 94,000 on 03/04. IVIG was not given on 02/02 and he was monitored overnight and his discharge platelet level was found to be 187,000. As the patient's platelet count is now stable off IVIG and off decadron and he has no further bleeding complications, he can be discharged w/ follow up w/ his PCP and repeat CBC in next week. He should be referred to [facility] hematology for follow up. His abnormal peripheral lung opacities are probably residual from his recent pneumonia but nevertheless needs follow up imaging in the near future and possible referral to pulmonology. Note that since an etiology for his ITP was not found and he had just completed his 2nd dose of Moderna vaccine for Covid-19, a SCJOSIE report was made by the hospital pharmacist to the FDA. Home Meds and New Rx's Prescriptions: No Action atorvastatin 40 mg tablet 40 mg PO DAILY Qty: 90 RF: 3 albuterol sulfate 90 mcg/actuation HFA aerosol inhaler 2 puff inhalation Q4H PRN PRN (Reason: shortness of breath or wheezing) Qty: 18 RF: 2 chlorthalidone 25 mg tablet 25 mg PO DAILY Qty: 90 RF: 4 Hold Instructions: Home Medication placed on hold at Doctor's office amlodipine 10 mg tablet 10 mg PO DAILY Qty: 90 RF: 3 lisinopril 40 mg tablet 40 mg PO DAILY Qty: 90 RF: 3 cyanocobalamin (vitamin B-12) [Vitamin B-12] 500 mcg Tablet 500 mcg PO DAILY Qty: 30 RF: 0 Discharge Instructions Instructions: Immune Thrombocytopenia (DC) Additional Instructions: get repeat CBC next week. You should have a follow up CT scan of your lungs in 2 to 3 weeks to follow up the peripheral lung opacities Referrals: Ryanne Sorensen SHEATHER [Primary Care Provider] - Activity:: Activity as Tolerated Equipment/Supplies:: No Equipment Needed Diet:: Normal Diet Discharge Orders Discharge Orders: Discharge Order (Routine); Ordered 02/03/21 Ordered By: Leroy Bowman Other Ambulatory Orders: Complete Blood Count w/Diff (Routine) Timeframe: [id number] Facility: [facility] - Location: Laboratory Outpatient Ordered By: Leroy Bowman CT chest high resolution (Routine) Timeframe: 3 Weeks Facility: [facility] - Location: DIAGNOSTIC IMAGING DEPT Ordered By: Leroy Bowman DS: Summary Time Spent with Patient providing and/or coordinating discharge services: Less than 30 minutes Status at Discharge Functional status at discharge: independent ambulation Overall status at discharge: patient is back to baseline Mental Status: mental status grossly normal Speech and Movement: speech and movement normal Mood: congruent mood Affect: normal affect Exam Narrative Exam Narrative: Older white male sitting up in his chair watching TV in no acute distress he is alert and oriented person place time circumstance. No further epistaxis no further gingival bleeding. Purpuric lesion on the roof of his mouth is getting smaller. Purpuric lesion over his left shoulder had a scab which came off. He has various areas of bruising on his arms that are coalescing some of which are fading. Petechiae on his pretibial surface of his legs is becoming fainter more diffuse. Psych Mental Status: mental status grossly normal Speech and Movement: speech and movement normal Mood: congruent mood Affect: normal affect DS: Data Vitals/I&O Vitals and I&O: Vital Signs Temperature 36.9 C 02/03/21 07:51 Temperature Source Temporal Artery Scan 02/03/21 07:51 Pulse 56 L 02/03/21 07:51 Pulse Rhythm Regular 02/03/21 04:41 Pulse 68 01/28/21 20:01 Respiratory Rate 17 02/03/21 07:51 Respiratory Effort Non-Labored 02/03/21 04:41 Respiratory Depth Normal 02/03/21 04:41 Respiratory Pattern Normal 02/03/21 04:41 Blood Pressure 146/72 H 02/03/21 07:51 Blood Pressure Mean 80 01/28/21 20:00 Blood Pressure Position Sitting 01/28/21 16:12 Pulse Oximetry 98 02/03/21 07:51 Oxygen Delivery Method Room Air 02/03/21 07:51 Oxygen Flow Rate 0 02/03/21 07:51 Pain Level 0 02/03/21 07:51 Comment 02/02/21 08:47 Intake & Output 02/02/21 02/03/21 02/03/21 23:59 11:59 23:59 Intake Total 1080 / 2140 350 / 350 Balance 1080 / 2140 350 / 350 Weight 98.1 kg Intake: Oral 1080 / 2140 350 / 350 Other: Urine Appearance Clear Clear Comment ambulates to the bathroom to void without any difficulty throughout the shift as per patient report Data Completed and Pending Labs on day of discharge: Labs from last 24 hours 02/03/21 02/03/21 01/29/21 06:25 06:25 06:41 WBC 13.10 H RBC 4.55 Hgb 11.7 L Hct 37.7 L MCV 82.9 MCH 25.7 L MCHC 31.0 L RDW 14.9 H Plt Count 187 MPV 10.5 Immature Gran % 2.7 Neutrophils % 63.2 Lymphocytes % 22.3 Monocytes % 9.9 Eosinophils % 1.7 Basophils % 0.2 Nucleated RBC % 1 Absolute Neutrophils 8.28 H Absolute Lymphocytes 2.92 Absolute Monocytes 1.30 H Absolute Eosinophils 0.22 Absolute Basophils 0.03 Methylmalonic Acid 0.19 A.phagocytophil DNA PCR Pending B. divergens/MO-1 PCR Pending Babesia duncani (PCR) Pending Babesia microti DNA PCR Pending Borrelia (PCR) Pending Lyme Disease Antibody Pending E.chaffeensis DNA (PCR) Pending E.ewingii/canis DNA PCR Pending E. muris-like DNA (PCR) Pending [facility] Medical History Acute type A viral hepatitis (08/21/13) Essential hypertension (07/30/13) Hyperlipidemia Obesity (BMI 35.0-39.9 without comorbidity) Prediabetes Surgical History Excision, Lipoma Family History Mother , 72 Lung cancer Father , 82 Heart disease Sister Depression Brother No problems noted. Sister No problems noted. Sister No problems noted. Son No problems noted. Daughter No problems noted. Social History Smoking/Tobacco Use Status: Former Tobacco Use Quit Date: 05/15/87 Tobacco: How many years used: 20 Second Hand Exposure: Yes Smoking risk assessment performed?: Yes Alcohol Intake: former Drug use: Never Substance use type: does not use Details: states lasyt drink in september Household members: spouse and children Housing: house Do you need help understanding health information?: Never Pets and animals: Yes Pets and animals: dog(s) and horse(s) Sexually active: Yes Do you think of yourself as: straight/heterosexual Current gender identity: male What is your relationship status?: How often do you talk on the phone with friends or family?: once per week How often do you get together with friends or relatives?: once per week How often do you attend gnosticism or taoism services?: 1-3 times per year Do you belong to any clubs or organized social groups?: no Panel score (0-1 are the most socially isolated patients): 1 What type of physical activity do you participate in: none Dennise/Temple: Rastafarian Special dennise needs: No Seatbelt use: sometimes Helmet use: No Drive intox or ride w/intox motorcoach driver: No Do you feel safe at home: Yes Do you feel safe in your relationship?: Yes
--- NOTE | 2021-02-03 13:30 | PDOC.CMDIS ---
- If Service Date Differs Date of service: 02/03/21 Time of Service: 13:30 LACE Index Scoring Tool - Questions: Length of Stay (in days): 4 - 6 Acuity (Admit via E.D.?): Yes E.D. Visits: 2 - Answers: Total Score: 9 Risk of Readmission: Low Risk Care Management Discharge Reason for Hospitalization: Acute ITP Discharge Plan: Noe will be discharged home with no new services. He will follow up with his PCP and discharge plan of care as directed. His will drive him home via private vehicle. Patient/Family Education Needs: Review of discharge instructions including medications, limitations, follow up plan and Ask Me Three
[2021-02-04 10:55] LABS: Lyme Ab w Rflx to Lyme Confirm Negative (Negative)
[2021-02-07 17:45] LABS: Anaplasma phagocytophilum Negative (Negative); B. miyamotoi PCR Negative (Negative); Babesia divergens/MO-1 Negative (Negative); Babesia duncani Negative (Negative); Babesia microti Negative (Negative); Ehrlichia chaffeensis Negative (Negative); Ehrlichia ewingii/canis Negative (Negative); Ehrlichia muris eauclairensis Negative (Negative)
== END 2021-02-03 14:17 | disposition home or self-care (01) | DRG 866 ==
LOC: ER 19:36 → MS 20:24
PROVIDERS: Admitting Provider Internal Medicine; Emergency Provider Emergency Medicine; PCP Nurse Practitioner; Visit Provider Internal Medicine
DX: T88.1XXA Other complications following immunization, not elsewhere classified, initial encounter (principal); D69.3 Immune thrombocytopenic purpura; I10 Essential (primary) hypertension; R73.03 Prediabetes; E78.5 Hyperlipidemia, unspecified; E66.9 Obesity, unspecified; E53.8 Deficiency of other specified B group vitamins; Z20.822 Contact with and (suspected) exposure to COVID-19; R91.1 Solitary pulmonary nodule; R59.0 Localized enlarged lymph nodes
CPT/HCPCS: 36415; 71275; 74177; 80053; 80186; 82805; 83090; 85027; 85384; 86022; 86147; 86663; 86803; 86850; 86900; 86901; 87040; 87338; 87389; 87635; 87798; 88185; 96374; 99220; 99231; 99232; 99238; 99285; 81003; 81015; 82248; 83605; 83615; 83735; 84443; 85025; 85610; 85730; 86618; 86738; 86747; 87086; 88184; 88189; 99224; G0378; J1100; J1459; J8540

== ENCOUNTER 2021-02-07 04:18 | Outpatient (CLI) | payer MEDICARE, SELFPAY ==
[2021-02-07 16:02] LABS: Abs Immature Grans 0.04 10^3/uL (0.0-0.06); Absolute Basophil Count 0.03 10^3/uL (0.0-0.2); Absolute Eosinophil Count 0.64 10^3/uL (0.0-0.7); Absolute Lymphocyte Count 1.59 10^3/uL (1.2-3.4); Absolute Monocyte Count 1.34 10^3/uL (0.1-0.8); Basophils % 0.3; Eosinophils % 5.9; HCT 36.4 % (40.0-50.0); HGB 11.4 g/dL (13.5-17.5); Immature Grans % 0.4; Lymphocytes % 14.6; MCH 26.1 pg (27.0-33.0); MCHC 31.3 % (32.0-36.0); MCV 83.3 fL (80-95); MPV 8.8 fL (8.0-11.0); Monocytes % 12.3; Neutrophils % 66.5; Nucleated RBC 0 %; Platelet Count 309 10^3/uL (130-400); RBC 4.37 10^6/uL (4.36-5.78); RDW 15.4 % (11.8-14.1); RDW-SD 46.5 fL; WBC 10.92 10^3/uL (4.4-10.8)
[2021-02-07 16:03] LABS: Absolute Neutrophil Count 7.26 10^3/uL (1.2-6.7)
== END 2021-02-07 04:19 | disposition home or self-care (01) ==
LOC: LBO 04:19
PROVIDERS: PCP Nurse Practitioner; Visit Provider Internal Medicine
DX: D69.6 Thrombocytopenia, unspecified (principal)
CPT/HCPCS: 36415; 82565; 85025

== ENCOUNTER 2021-02-10 01:00 | Outpatient (CLI) | payer MEDICARE, SELFPAY ==
--- NOTE | 2021-02-10 15:00 | ETT_ITS ---
APPROVED REPORT Exam: Exercise Treadmill Patient Location: Out-Patient Room/Bed: Stress Nurse: Radha Ryder RN Ordering Provider:TRACEY VIEYRA, Contact Number: [phone] BMI: 34.69 Baseline Rhythm: Sinus Rhythm Indications: CHEST PAIN Medical History Medical History: HLD, HTN, Prediabetes, recent PNA. Cardiac Medications: Atorvastatin, Amlodipine, Lisinopril Allergies: No known drug allergies Cardiac Risk Factors: HTN, Hyperlipidemia, Smoking (former), Obesity Previous Cardiac Procedures: None Pretest Chest Pain Characteristics: No chest pain Exercise History: Sedentary Physical Disabilities: None. Lung Sounds: Clear to auscultation Heart Sounds: Regular, Murmur Stress Test Details Test: Exercise stress testing was performed using a Clarence protocol. Rest Stress HR Resting HR Supine: 83 bpm Max Heart Rate (APMHR): 149 bpm Resting HR Standin bpm Target HR (85% APMHR): 126 bpm Max HR Achieved: 146 bpm % of APMHR: 97 Recovery HR: 98 bpm HR response to stress: Accelerated HR response to stress BP Resting BP Supine: 150/76 mmHg Resting BP Standin/50 mmHg Max BP: 212/52 mmHg Recovery BP: 170/54 mmHg BP response to stress: Normal blood pressure response to stress. ECG Resting ECG: Sinus Rhythm Ectopy: None Stress ECG: Sinus Tachycardia ST Change: No significant ST segment changes noted Arrhythmia: None Recovery ECG: Sinus Rhythm Recovery ST Change: No significant ST segment changes noted Recovery Arrhythmia: PACs Clinical Reason for Termination: Dyspnea Stress Symptoms: Dyspnea Exercise duration: 3 min19 sec Highest Stage Reached: Stage 2: 2.5 mph at 12% grade. Exercise capacity: 5.01 METs Dominguez Treadmill Score: 3 Rate Pressure Product: [id number] Stress ECG Conclusion 1. The patient exercised for 3 minutes (5 METS). Exercise was stopped due to dyspnea. 2. Patient had normal blood pressure and heart rate response to exercise. Exercise capacity was decr eased. 3. There was no evidence of ischemia on the ECG portion of the exam. Dominguez Treadmill Score is 3 which is Moderate risk. Stress Test Summary STAGE Time (mins) Speed (mph) Grade (%) HR BP SYMPTOMS METS Supine 83 150/76 Standing 95 150/50 SpO2 95% 1 3 1.7 10 143 190/78 SpO2 92% 4.6 2 6 2.5 12 SpO2 90% 7 1 min recovery 135 212/52 SpO2 94% 3 min recovery 113 174/58 6 min recovery 98 170/54
== END 2021-02-10 01:20 ==
PROVIDERS: PCP Nurse Practitioner; Visit Provider Nurse Practitioner
DX: R07.9 Chest pain, unspecified (principal); I10 Essential (primary) hypertension; E78.5 Hyperlipidemia, unspecified; Z87.891 Personal history of nicotine dependence; E66.9 Obesity, unspecified
CPT/HCPCS: 93016; 93018; 93017

== ENCOUNTER 2021-02-15 02:37 | Outpatient (CLI) | payer MEDICARE, SELFPAY ==
[2021-02-15 08:07] LABS: Abs Immature Grans 0.04 10^3/uL (0.0-0.06); Absolute Basophil Count 0.08 10^3/uL (0.0-0.2); Absolute Eosinophil Count 0.32 10^3/uL (0.0-0.7); Absolute Lymphocyte Count 1.45 10^3/uL (1.2-3.4); Absolute Monocyte Count 0.57 10^3/uL (0.1-0.8); Absolute Neutrophil Count 6.43 10^3/uL (1.2-6.7); Basophils % 0.9; Eosinophils % 3.6; HCT 36.7 % (40.0-50.0); HGB 11.4 g/dL (13.5-17.5); Immature Grans % 0.4; Lymphocytes % 16.3; MCHC 31.1 % (32.0-36.0); MCV 83.8 fL (80-95); MPV 8.6 fL (8.0-11.0); Monocytes % 6.4; Neutrophils % 72.4; Nucleated RBC 0 %; Platelet Count 328 10^3/uL (130-400); RBC 4.38 10^6/uL (4.36-5.78); RDW 15.4 % (11.8-14.1); RDW-SD 46.3 fL; WBC 8.89 10^3/uL (4.4-10.8)
== END 2021-02-15 02:38 | disposition home or self-care (01) ==
LOC: LBO 02:37
PROVIDERS: PCP Nurse Practitioner; Visit Provider Nurse Practitioner
DX: J98.4 Other disorders of lung (principal); I10 Essential (primary) hypertension; R59.0 Localized enlarged lymph nodes; D69.3 Immune thrombocytopenic purpura; D51.9 Vitamin B12 deficiency anemia, unspecified
CPT/HCPCS: 36415; 85027; 85025

== ENCOUNTER 2021-02-23 02:25 | Outpatient (CLI) | payer MEDICARE, SELFPAY ==
--- NOTE | 2021-02-23 13:01 | DI.CT_ITS ---
Exam(s) CT CHEST WO EXAM: CT CHEST WO CLINICAL HISTORY: F/U abnormal CT chest; peripheral lung nodules,R93.89. TECHNIQUE: Multi planar reconstructions were performed. CONTRAST MATERIAL: None COMPARISON: CR XR CHEST 2V PA LATERAL from 01/26/[address] CHEST PE ABD PELVIS W from 01/28/2021 FINDINGS: CHEST: LUNGS: Compared to 01/28/2021 there has been some improvement in the previously described multifocal bilateral subpleural infiltrates. These have significantly decreased in size but not completely reso lved. There presently no pleural effusions. No new focal pulmonary findings. No new findings in th e trachea and mainstem bronchi. MEDIASTINUM: Slightly enlarged hilar nodes again noted but difficult to assess without IV contrast. Enlarged subcarinal lymph nodes are also again noted. Visualized thyroid unremarkable.No obvious axi llary adenopathy CARDIAC: Heart size is normal. There is no pericardial effusion.Caliber of the thoracic aorta is wit hin normal limits. VISUALIZED UPPER ABDOMEN:No acute OSSEOUS: There is no significant rib involvement.. IMPRESSION: 1. Compared to the prior CT scan of 01/28/2021 there has been significant improvement in the previous ly described bilateral pleural base on non pleural-based infiltrates although these have not complete ly resolved. 2. Slightly enlarged hilar lymph nodes and mediastinal nodes again noted. Subcarinal adenopathy agai n noted 3. There presently no pleural effusions. 4. No lytic nor blastic osseous lesions evident. RADIATION DOSE DELIVERED: 759.1mGy.cm Total DLP DATA REPOSITORY: All CT scans at this facility are submitted to the National Radiology Data Registry (NRDR) Dose Index Registry (DIR) with the [employer] (ACR). RADIATION OPTIMIZATION: All CT scans at this facility use at least one of these dose optimization te chniques: automated exposure control; mA and/or kV adjustment per patient size (includes targeted exa ms where dose is matched to clinical indication); or iterative reconstruction.
== END 2021-02-23 02:45 ==
PROVIDERS: PCP Nurse Practitioner; Visit Provider Internal Medicine
DX: R91.8 Other nonspecific abnormal finding of lung field (principal); R59.0 Localized enlarged lymph nodes; R93.89 Abnormal findings on diagnostic imaging of other specified body structures
CPT/HCPCS: 71250

== ENCOUNTER → 2021-04-01 13:10 | Outpatient (BNVA) | payer MEDICARE, SELFPAY | PROVIDERS: PCP Nurse Practitioner; Referring Provider Nurse Practitioner; Visit Provider Internal Medicine Cardiovascular Disease | DX: E78.2 Mixed hyperlipidemia (principal); I10 Essential (primary) hypertension | CPT/HCPCS: 99202; 99214 ==

== ENCOUNTER 2021-06-07 16:19 | Outpatient (REF) | payer MEDICARE, SELFPAY ==
[2021-06-09 17:01] LABS: COVID-19 RT-PCR UVMMC Result Negative (Negative)
== END 2021-06-07 16:20 | disposition home or self-care (01) ==
LOC: LBN 16:19
PROVIDERS: PCP Nurse Practitioner; Visit Provider Physician Assistant
DX: Z20.822 Contact with and (suspected) exposure to COVID-19 (principal); R06.02 Shortness of breath
CPT/HCPCS: U0003

== ENCOUNTER 2021-08-31 00:47 | Outpatient (CLI) | payer MEDICARE, SELFPAY ==
--- NOTE | 2021-08-31 09:49 | DI.CT_ITS ---
Exam(s) CT CHEST HIGH RESOLUTION EXAM: CT CHEST HIGH RESOLUTION CLINICAL HISTORY: abnormal CT,R93.89,H/O INFILTRATES TECHNIQUE: COMPARISON: CT CT CHEST WO from 02/23/2021 FINDINGS: CT examination of the chest was performed without contrast administration. The examination is compar ed with prior examination of February 23, which showed multi focal bilateral predominantly subpleural in trapulmonary infiltrates. The bilateral subpleural infiltrates are again noted and grossly unchanged from prior examination. N o new consolidation. Tracheobronchial tree appears intact. No pleural effusion. Mild mediastinal a denopathy is again noted, grossly unchanged, 21 millimeter pretracheal node noted. Images obtained through the upper abdomen show unremarkable appearance of visualized portions of live r, spleen, pancreas, adrenals, and kidneys. IMPRESSION: Stable bilateral multi focal subpleural opacities, no gross interval change from prior CT of February 2021 . Please correlate clinically. RADIATION DOSE DELIVERED: 730.6mGy.cm Total DLP CTDIvol RADIATION OPTIMIZATION: All CT scans at this facility use at least one of these dose optimization te chniques: automated exposure control; mA and/or kV adjustment per patient size (includes targeted exa ms where dose is matched to clinical indication); or iterative reconstruction.
== END 2021-08-31 01:07 ==
PROVIDERS: PCP Nurse Practitioner; Visit Provider Nurse Practitioner
DX: R93.89 Abnormal findings on diagnostic imaging of other specified body structures (principal); R91.8 Other nonspecific abnormal finding of lung field; J98.59 Other diseases of mediastinum, not elsewhere classified
CPT/HCPCS: 71250

== ENCOUNTER 2021-09-12 03:19 | Outpatient (CLI) | payer MEDICARE, SELFPAY ==
[2021-09-12 11:40] LABS: Abs Immature Grans 0.01 10^3/uL (0.0-0.06); Absolute Basophil Count 0.08 10^3/uL (0.0-0.2); Absolute Eosinophil Count 0.31 10^3/uL (0.0-0.7); Absolute Monocyte Count 0.72 10^3/uL (0.1-0.8); Absolute Neutrophil Count 4.69 10^3/uL (1.2-6.7); Basophils % 1.1; Eosinophils % 4.1; HCT 48.8 % (40.0-50.0); HGB 15.4 g/dL (13.5-17.5); Immature Grans % 0.1; Lymphocytes % 23.7; MCH 26.6 pg (27.0-33.0); MCHC 31.6 % (32.0-36.0); MCV 84.1 fL (80-95); MPV 9.2 fL (8.0-11.0); Monocytes % 9.5; Neutrophils % 61.5; Nucleated RBC 0 %; Platelet Count 296 10^3/uL (130-400); RDW 14.6 % (11.8-14.1); RDW-SD 44.3 fL; WBC 7.61 10^3/uL (4.4-10.8)
== END 2021-09-12 03:20 | disposition home or self-care (01) ==
PROVIDERS: PCP Nurse Practitioner; Visit Provider Nurse Practitioner Adult Health
DX: D69.3 Immune thrombocytopenic purpura (principal)
CPT/HCPCS: 36415; 80061; 85027; 82565; 83036; 84132; 85025

== ENCOUNTER 2021-09-26 03:55 | Outpatient (CLI) | payer MEDICARE, SELFPAY ==
[2021-09-26 08:05] LABS: Abs Immature Grans 0.02 10^3/uL (0.0-0.06); Absolute Basophil Count 0.08 10^3/uL (0.0-0.2); Absolute Eosinophil Count 0.44 10^3/uL (0.0-0.7); Absolute Monocyte Count 0.62 10^3/uL (0.1-0.8); Absolute Neutrophil Count 3.35 10^3/uL (1.2-6.7); Basophils % 1.3; Eosinophils % 7.3; HCT 47.5 % (40.0-50.0); HGB 14.5 g/dL (13.5-17.5); Immature Grans % 0.3; MCHC 30.5 % (32.0-36.0); MCV 85.1 fL (80-95); MPV 9.5 fL (8.0-11.0); Monocytes % 10.3; Neutrophils % 55.8; Nucleated RBC 0 %; Platelet Count 242 10^3/uL (130-400); RBC 5.58 10^6/uL (4.36-5.78); RDW 14.1 % (11.8-14.1); WBC 6.01 10^3/uL (4.4-10.8)
[2021-09-26 08:17] LABS: Hemoglobin A1C 6.2 % (<5.7)
[2021-09-26 09:17] LABS: CREATININE 1.3 mg/dL (0.70-1.30); Calculated LDL 56 mg/dL (<100); Cholesterol 112 mg/dL (<200); Estimated GFR 54.42 (mL/min/1.73m2); HDL Cholesterol 28 mg/dL (40-60); Potassium 4.2 mmol/L (3.5-5.1); Triglyceride 140 mg/dL (<150)
== END 2021-09-26 03:56 | disposition home or self-care (01) ==
LOC: LBO 03:55
PROVIDERS: PCP Nurse Practitioner; Visit Provider Internal Medicine
DX: D69.3 Immune thrombocytopenic purpura (principal); E11.9 Type 2 diabetes mellitus without complications; I10 Essential (primary) hypertension
CPT/HCPCS: 36415; 80061; 85027; 82565; 83036; 84132; 85025

== ENCOUNTER 2021-10-10 04:05 | Outpatient (CLI) | payer MEDICARE, SELFPAY ==
[2021-10-10 07:39] LABS: Abs Immature Grans 0.02 10^3/uL (0.0-0.06); Absolute Lymphocyte Count 1.83 10^3/uL (1.2-3.4); Absolute Neutrophil Count 4.21 10^3/uL (1.2-6.7); Basophils % 1.4; Eosinophils % 6.8; HCT 50.5 % (40.0-50.0); HGB 15.4 g/dL (13.5-17.5); Immature Grans % 0.3; Lymphocytes % 24.9; MCH 26.1 pg (27.0-33.0); MCHC 30.5 % (32.0-36.0); MCV 85.7 fL (80-95); MPV 8.8 fL (8.0-11.0); Monocytes % 9.5; Neutrophils % 57.1; Nucleated RBC 0 %; Platelet Count 278 10^3/uL (130-400); RBC 5.89 10^6/uL (4.36-5.78); RDW 14.1 % (11.8-14.1); RDW-SD 43.9 fL; WBC 7.36 10^3/uL (4.4-10.8)
== END 2021-10-10 04:06 | disposition home or self-care (01) ==
LOC: LBO 04:05
PROVIDERS: PCP Nurse Practitioner; Visit Provider Internal Medicine
DX: D69.3 Immune thrombocytopenic purpura (principal)
CPT/HCPCS: 36415; 85025

== ENCOUNTER → 2022-01-16 03:12 | Outpatient (CLI) | payer MEDICARE, SELFPAY ==
--- NOTE | 2022-01-16 09:57 | DI.CT_ITS ---
Exam(s) CT CHEST WO EXAM: CT CHEST WO CLINICAL HISTORY: F/U ABNL CT,R93.89. TECHNIQUE: Multi planar reconstructions were performed. CONTRAST MATERIAL: None COMPARISON: CT CT CHEST WO from 02/23/[address] CHEST HIGH RESOLUTION from 08/31/2021 FINDINGS: CHEST: LUNGS: In the right lung the infiltrate in the lower most aspect of the right upper lobe is unchanged from the CT scan of 08/31/2021 and infiltrate just below this in the right middle lobe lateral segme nt is also again noted and exhibits minimal if any significant change. No improvement. Infiltrate i n the inferior lingular segment of the opposite-left lung is also unchanged. There are no infiltrate s in the lower lobes and there are no pleural effusions. Mild subpleural increased markings again no aquiles bilaterally. No new findings in trachea and mainstem bronchi. MEDIASTINUM: No obvious hilar adenopathy. Slightly prominent right paratracheal lymph node is again noted. There is also some subcarinal adenopathy again noted. There is no axillary adenopathy. No s upraclavicular adenopathy. Visualized thyroid unremarkable CARDIAC: Heart size is normal. There is no pericardial effusion.Caliber of the thoracic aorta is wit hin normal limits. VISUALIZED UPPER ABDOMEN:No adrenal masses. OSSEOUS: No significant osseous lesions.. IMPRESSION: 1. Compared to the prior CT scan of 08/31/2021 there is continued presence of the bilateral infiltrat es, the largest again noted to be in the right middle lobe. No improvement although no obvious signi ficant progression. No associated pleural effusions 2. Subcarinal adenopathy again noted as is a somewhat prominent right paratracheal lymph node. RADIATION DOSE DELIVERED: 684.73mGy.cm Total DLP DATA REPOSITORY: All CT scans at this facility are submitted to the National Radiology Data Registry (NRDR) Dose Index Registry (DIR) with the [employer] (ACR). RADIATION OPTIMIZATION: All CT scans at this facility use at least one of these dose optimization te chniques: automated exposure control; mA and/or kV adjustment per patient size (includes targeted exa ms where dose is matched to clinical indication); or iterative reconstruction.
== END ==
PROVIDERS: PCP Nurse Practitioner; Visit Provider Nurse Practitioner
DX: R91.8 Other nonspecific abnormal finding of lung field (principal); R59.9 Enlarged lymph nodes, unspecified
CPT/HCPCS: 71250

== ENCOUNTER 2022-02-06 04:47 | Outpatient (CLI) | payer MEDICARE, SELFPAY ==
[2022-02-06 09:17] LABS: HGB 14.6 g/dL (13.5-17.5); MCH 26.6 pg (27.0-33.0); MCHC 31.7 % (32.0-36.0); MCV 83.9 fL (80-95); Platelet Count 234 10^3/uL (130-400); RBC 5.48 10^6/uL (4.36-5.78); RDW 14.6 % (11.8-14.1); RDW-SD 44.8 fL
[2022-02-06 09:38] LABS: Hemoglobin A1C 6.7 % (<5.7)
[2022-02-06 10:51] LABS: Anion Gap 6.8 mmol/L (3-11); BUN 30 mg/dL (7-18); CO2 30.2 mmol/L (21.0-32.0); CREATININE 1.2 mg/dL (0.70-1.30); Calcium 8.9 mg/dL (8.5-10.1); Calculated LDL 69 mg/dL (<100); Chloride 102 mmol/L (98-107); Cholesterol 118 mg/dL (<200); Estimated GFR 59.51 (mL/min/1.73m2); Glucose 114 mg/dL (74-106); HDL Cholesterol 30 mg/dL (40-60); Potassium 4.5 mmol/L (3.5-5.1); Sodium 139 mmol/L (136-145); Triglyceride 96 mg/dL (<150); Vitamin B12 1136 pg/mL (193-986)
[2022-02-06 20:02] LABS: PSA, Screening 0.8 ng/mL (<=6.5)
== END 2022-02-06 04:48 | disposition home or self-care (01) ==
LOC: LBO 04:47
PROVIDERS: PCP Nurse Practitioner; Visit Provider Nurse Practitioner
DX: I10 Essential (primary) hypertension (principal); R53.83 Other fatigue; R73.03 Prediabetes; D51.3 Other dietary vitamin B12 deficiency anemia; D69.6 Thrombocytopenia, unspecified; R33.8 Other retention of urine; Z12.5 Encounter for screening for malignant neoplasm of prostate
CPT/HCPCS: 36415; 80048; 80061; 84153; 85027; 82607; 83036

== ENCOUNTER 2022-04-05 16:30 | Outpatient (REF) | payer MEDICARE, SELFPAY ==
[2022-04-05 16:54] LABS: Abs Immature Grans 0.03 10^3/uL (0.0-0.06); Absolute Eosinophil Count 0.38 10^3/uL (0.0-0.7); Absolute Lymphocyte Count 1.89 10^3/uL (1.2-3.4); Absolute Monocyte Count 0.71 10^3/uL (0.1-0.8); Absolute Neutrophil Count 5.47 10^3/uL (1.2-6.7); Basophils % 1.2; Eosinophils % 4.4; HCT 43.9 % (40.0-50.0); Immature Grans % 0.3; MCHC 31.9 % (32.0-36.0); MCV 85 fL (80-95); MPV 9.6 fL (8.0-11.0); Monocytes % 8.3; Neutrophils % 63.8; Platelet Count 246 10^3/uL (130-400); RBC 5.18 10^6/uL (4.36-5.78); RDW 13.7 % (11.8-14.1); RDW-SD 42.6 fL; WBC 8.58 10^3/uL (4.4-10.8)
[2022-04-06 18:27] LABS: Rheumatoid Factor <8.6 IU/mL (<12.0)
[2022-04-07 08:29] LABS: Cyclic Citrullinated Peptide <2.5 U/mL (<5.0)
[2022-04-07 15:13] LABS: ANA Interpretation Positive (Negative); ANA Titer Pattern 1:640 Homogeneous
[2022-04-07 19:19] LABS: Scl 70 Antibodies, IgG <0.2 U
[2022-04-08 00:42] LABS: Fungitell Qualitative Negative (Negative); Fungitell Quantitative Value <31 pg/mL (<60 pg/mL)
[2022-04-08 08:41] LABS: Leukemia/Lymphoma by FC (Blood (See below)
[2022-04-11 10:18] LABS: SS-B (La) Ab, IgG 1.3 Units (<20.0)
[2022-04-11 10:37] LABS: SS-A Antibody 1.1 Units (<20.0)
[2022-04-11 10:56] LABS: dsDNA Ab, IgG <12.3 IU/mL (<30.0)
[2022-04-11 12:47] LABS: Sm (Smith) Ab, IgG 1.2 Units (<20.0)
[2022-04-21 09:15] LABS: Interpretation Negative; Result: None Detected
[2022-04-24 00:09] LABS: Anti-EJ Ab Negative (Negative); Anti-Jo-1 Ab <20 Units (<20); Anti-Ku Ab Negative (Negative); Anti-MDA-5 Ab (CADM-140) <20 Units (<20); Anti-Mi-2-Ab Negative (Negative); Anti-NXP-2 (P140) Ab <20 Units (<20); Anti-OJ Ab Negative (Negative); Anti-PL-12 Ab Negative (Negative); Anti-PL-7 Ab Negative (Negative); Anti-PM/Scl-100 Ab <20 Units (<20); Anti-SRP Ab Negative (Negative); Anti-SS-A 52kD Ab, IgG <20 Units (<20); Anti-TIF-1gamma Ab <20 Units (<20); Anti-U1 RNP Ab <20 Units (<20); Anti-U2 RNP Ab Negative (Negative); Anti-U3 RNP (Fibrillarin) Negative (Negative)
== END 2022-04-05 16:31 | disposition home or self-care (01) ==
LOC: LBN 16:30
PROVIDERS: PCP Nurse Practitioner; Visit Provider Student in an Organized Health Care Education/Training Program
DX: J84.9 Interstitial pulmonary disease, unspecified (principal); R59.0 Localized enlarged lymph nodes
CPT/HCPCS: 83516; 86200; 86235; 87449; 88185; 85025; 86038; 86225; 86431; 87385; 88184; 88189

== ENCOUNTER 2022-04-12 01:57 | Outpatient (CLI) | payer MEDICARE, SELFPAY ==
[2022-04-12 08:25] LABS: Source Nasal/Nares
[2022-04-12 16:49] LABS: COVID-19 PCR Negative (Negative)
== END 2022-04-12 01:58 | disposition home or self-care (01) ==
LOC: LBO 01:57
PROVIDERS: PCP Nurse Practitioner; Visit Provider Student in an Organized Health Care Education/Training Program
DX: Z20.822 Contact with and (suspected) exposure to COVID-19 (principal); Z01.818 Encounter for other preprocedural examination
CPT/HCPCS: 87635; U0005

== ENCOUNTER 2022-04-14 06:15 | Day surgery (SDC) | payer MEDICARE, SELFPAY ==
[2022-04-14] VITALS (8 sets, daily range): BP systolic 119–171; BP diastolic 52–78; PULSE 65–88; RESP 16–22; TEMP 36–36.7; O2SAT 95–97; BMI 35.6
[2022-04-14] MEDS: Lactated Ringers 1,000 ML 30 ML IV (06:59)
--- NOTE | 2022-04-14 07:11 | DI.RAD_ITS ---
Exam(s) XR FLOURO OR C-ARM <1 HR EXAM: XR FLOURO OR C-ARM <1 HR CLINICAL HISTORY: (1) Abnormal CT scan, chest. TECHNIQUE: 2D digital imaging was performed. COMPARISON: No exams were available for comparison FINDINGS: Fluoroscopy was provided during bronchoscopy. See procedure report for details Total fluoroscopy time 27 seconds Total cumulative dose 5.38mGy IMPRESSION: DATA REPOSITORY: RADIATION DOSE DELIVERED:
--- NOTE | 2022-04-14 07:15 | W.ANESPRE ---
General Info Date of Service Date Performed: 04/14/22 Height: 5 ft 6.14 in Weight: 100.6 kg Body Mass Index (BMI): 35.6 Surgical Procedure: Operation Date: 04/14/22 07:40 Proposed Procedure Side Surgeon p Flexible Bronchoscopy w/BAL,Endobronchial Biopsies, Trans-bronchial Biopsies Wendy Casillas MD Actual Procedure Side Surgeon p Flexible Bronchoscopy w/BAL,Endobronchial Biopsies, Trans-bronchial Biopsies Wendy Casillas MD Pre-Op Diagnosis Post-Op Diagnosis (1) Abnormal CT scan, chest: (2) Mediastinal lymphadenopathy: (3) ILD (interstitial lung disease): Meds Allergies and Home Medications Allergies Allergy/AdvReac Type Severity Reaction Status Date / Time No Known Allergies Allergy Verified 04/13/22 12:30 Home Medication Medication Instructions Recorded chlorthalidone 25 mg tablet 25 mg PO DAILY #90 tabs 05/27/21 amlodipine 10 mg tablet 10 mg PO DAILY #90 tab-caps 07/19/21 atorvastatin 40 mg tablet 40 mg PO DAILY #90 tabs 07/19/21 lisinopril 40 mg tablet 40 mg PO DAILY #90 tab-caps 07/19/21 albuterol sulfate 90 mcg/actuation 2 puff inhalation Q4H PRN PRN 11/24/21 aerosol inhaler shortness of breath or wheezing #18 grams ibuprofen 200 mg tablet 600 mg PO Q6H PRN 04/14/22 Current Visit Medications: Current Medications Generic Name Dose Route Start Last Admin Trade Name Freq PRN Reason Stop Dose Admin Ringer's Solution 1,000 mls @ 30 mls/hr 04/14/22 06:00 04/14/22 06:59 IV 05/13/22 23:59 30 mls/hr INFUSION SONI Administration IV Miscellaneous Supplies 1 each 04/14/22 06:00 Iv Access IV 05/13/22 23:59 DIRECTED SONI Sodium Chloride 0 ml 04/14/22 06:00 Normal Saline Flush 10 Ml Syr IV 05/13/22 23:59 PRN PRN Sodium Chloride 0 ml 04/14/22 06:00 Normal Saline 10 Ml Vial IJ 05/13/22 23:59 DIRECTED PRN Sterile Water 0 ml 04/14/22 06:00 Water,Injection,Sterile 10 Ml Vial IJ 05/13/22 23:59 DIRECTED PRN PFSH Active Problems Active Problems: Problem Status Onset Code Tubular adenoma 10/01/13 D36.9 Essential hypertension 07/30/13 I10 Prediabetes R73.03 Hyperlipidemia E78.5 B12 deficiency anemia D51.[address] scan, chest R93.89 Incomplete bladder emptying R33.9 Mediastinal lymphadenopathy R59.0 ILD (interstitial lung disease) J84.9 Encounter for screening for COVID-19 Z11.52 Medical History Medical History Acute type A viral hepatitis (08/21/13) Bilateral bunions Obesity (BMI 35.0-39.9 without comorbidity) Surgical History Surgical History (Updated 04/14/22 @ 06:38 by Jessica Arce RN) Excision, Lipoma H/O hernia repair Tobacco Smoking/Tobacco Use Status: Former Tobacco Use Passive smoking exposure: Yes Second hand exposure: Yes Alcohol Alcohol Intake: former Substance Use Substance use: Never Substance use type: does not use Vital Signs and Lab Results Vital Signs Most Recent Vital Signs in EMR: Most Recent Vital Signs Temp Pulse Resp BP Pulse Ox 36.6 C 66 18 171/78 H 96 04/14/22 06:27 04/14/22 06:27 04/14/22 06:27 04/14/22 06:27 04/14/22 06:27 Lab Results Blood Type / Crossmatch: No Data to Display Complete Blood Count: White Blood Count 8.58 10^3/uL (4.4-10.8) 04/05/22 14:45 Red Blood Count 5.18 10^6/uL (4.36-5.78) 04/05/22 14:45 Hemoglobin 14.0 g/dL (13.5-17.5) 04/05/22 14:45 Hematocrit 43.9 % (40.0-50.0) 04/05/22 14:45 Platelet Count 246 10^3/uL (130-400) 04/05/22 14:45 Complete Metabolic Panel: No Data to Display Liver Function Panel: No Data to Display Coagulation Panel: No Data to Display Cardiac Panel: No Data to Display Arterial Blood Gas: No Data to Display Venous Blood Gas: No Data to Display Pancreas Panel: No Data to Display Thyroid Panel: No Data to Display Infectious Disease: Coronavirus (COVID-19)(PCR) Negative (Negative) 04/12/22 08:05 Coronavirus 2019 Source Nasal/Nares 04/12/22 08:05 Blood Cultures: No Data to Display Toxicology Panel: No Data to Display Anesthesia Assessment and Plan Anesthesia History Personal History: No History of Anesthesia Complications and Other Family History: No Family History of Anesthesia Complications Exercise Tolerance Exercise Tolerance: Metabolic Equivalents>4 Pertinent Negatives Pertinent Negatives: No Symptoms of GERD, No Major Cardiovascular Symptoms or Complaints, No Major Pulmonary Symptoms or Complaints (WORRELL CT Findings) and No History of CVA/TIA Cardiac & Pulmonary Exam Cardiac Exam: Normal S1/S2 Heart Sounds Pulmonary Exam: Clear Bilateral Breath Sounds Implantable Cardiac Device Does patient have a Pacemaker or an ICD?: No Airway Exam Known Difficult Airway: No Mallampati Class: 1 Mouth Opening: Normal (> 3cm) Thyromental Distance: Greater than 3 cm Neck Range of Motion: Full ROM Neck Circumference: Normal Teeth Condition: Normal Dentition and Generalized Poor Dentition Airway Comments: Multiple missing Top 5 teeth Capped ASA Classification ASA Score: ASA 2 Emergency Case?: No NPO Status NPO Status: NPO Clears >2 hours, Solids >8 hours Anesthesia Plan Resuscitation Status: Full Code Anesthesia Technique: General Anesthesia Airway Planned: Endotracheal Tube Monitors Used: Standard Monitors
[2022-04-14] MEDS: Lidocaine 1% Pres-Free 30 ML VIAL (07:50)
--- NOTE | 2022-04-14 07:53 | PAPNONF_PTH ---
PATIENT: Jens Sellers LOC: [facility] U#:[id number] AGE/SX: 72/M ROOM: RE04/14/[address]: Wendy Casillas MD : 1950 BED: DIS: 04/14/2022 SPEC #: [id number] RECD: 04/14/22 11:30 STATUS: MELANIE REMartin #: [id number] DB: 04/14/22 07:[address]: Wendy Casillas DEPT: [facility] Cytology RECD BY: Cecilia Buenrostro ENTERED: 04/14/22 11:38 SP TYPE: JEFFREY ANDERSON DR: Ryanne Sorensen, PhD REGULATORY CONSULTANT Tissues: 1 - BODY FLUID CYTO(NOT S/U/N/EM)[facility] 2 - BODY FLUID CYTO(NOT S/U/N/EM)[facility] 3 - BODY FLUID CYTO(NOT S/U/N/EM)[facility] 4 - BODY FLUID CYTO(NOT S/U/N/EM)[facility] Procedures: BODY FLUID CYTO(NOT SPU/UR/NIP/ENDOM)[facility] Comments: [id number] / [id number] (#3-TOTAL VOLUME = 8cc) (SENT FRESH)
[2022-04-14] MEDS: Albuterol/Ipratropium 3 ML UPD VIAL UPD (08:34)
--- NOTE | 2022-04-14 09:06 | DI.RAD_ITS ---
Exam(s) XR PORTABLE CHEST AP EXAM: XR PORTABLE CHEST AP CLINICAL HISTORY: s/p transbronchial biopsies. TECHNIQUE: 2D digital imaging was performed. COMPARISON: CR XR CHEST 2V PA LATERAL from 01/26/[address] CHEST WO from 01/16/2022 FINDINGS: Single AP portable view. Heart size is upper normal. The mediastinum is not widened. The previously described nodular infiltrate in the left upper lobe region seen on 01/26/2021 is no lo nger seen. Mild infiltrate is noted in the right lung base, partially obscured by the 8th rib. Some interstitial disease is noted bilaterally, not associated with obvious pleural effusions.. IMPRESSION: As above. If clinically indicated further study with CT scan can be performed DATA REPOSITORY: RADIATION DOSE DELIVERED: All CT scans at this facility use at least one of these dose optimization techniques: automated exposure control; mA and/or kV adjustment per patient size (includes targeted e xams where dose is matched to clinical indication); or iterative reconstruction.
--- NOTE | 2022-04-14 09:17 | ROE_ITS ---
Date of service: 04/14/22 Time of Service: 07:30 Operative Note Operative Note DATE OF PROCEDURE: 04/14/22 PRE-OP DIAGNOSIS: Abnormal Chest CT POST-OP DIAGNOSIS: same PROCEDURE: Flexible bronchoscopy Bronchoalveolar lavage RUL Transbronchial biopsies RLL x 4 Transbronchial biopsies RUL x2 Refer to Anesthesia Record Procedure Description: Bronchoscopy Indication: pulmonary fibrosis, mediastinal LAD Procedure performed: Flexible bronchoscopy with BAL and transbronchial biopsies of RUL and RLL Sedation plan: General anesthesia Medications used:see seperate documentation Informed consent was obtained after the risks and benefits or the procedure were discussed. A proper and complete OR compliant time out was performed. The therapeutic 6.2mm Olympus bronchoscope was inserted through the endotracheal tube. The bronchoscope was inserted into the airways, were 2cc in total of 1% topical l idocaine in total was used the anesthetize the airways. The trachea was midline and without lesion or injury that could be seen. The mucosa appeared normal and there were no signs of tracheomalacia. There were some scattered tics. The tomás was sharp. All bronchial subsegments were visualized within each lobe and showed a normal bronchoscopic airways exam. A bronchoalveolar lavage was performed in the RUL. A total of 120cc of saline was administered with a return of only 10cc. The airways were very collapsible and made the BAL technically difficult. The fluid was clear with some cellulari ty in appearance. Next 3 transbronchial biopsies were obtained from the RLL for Envisia with no bleeding or pneumothorax seen on fluoroscopy. Next 2 transbronchial biopsies were obtained from the RUL for Envisia testing, again with no bleeding or pneumothorax seen. A final RLL transbronchial biopsy was obtained to send to pathology. There was some oozing with this biopsy that was completely resolved with cold saline administration. The bronchoscope was then removed and the case terminated. The patient was taken to PACU in stable condition but did require a pre- and post procedure nebulizer. Samples collected: RUL BAL Bronchial washing Transbronchial biopsies of RUL and RLL Testing ordered: Fluid differential Culture for bacterial and fungus Pathology Envisia for genetic sequencing Complications:None Wendy Casillas MD Pulmonary & Critical Care Medicine
--- NOTE | 2022-04-14 12:03 | W.ANESPOSTOP ---
Postoperative Evaluation Date, Time and Location Date Performed: 04/14/22 Time Performed: 11:11 Patient Location: Day Surgery Unit Vital Signs Most Recent Imported Vital Signs: Most Recent Vital Signs Temp Pulse Resp BP Pulse Ox 36.5 C 65 16 127/73 95 04/14/22 09:50 04/14/22 09:50 04/14/22 09:50 04/14/22 09:50 04/14/22 09:50 Pain Score Most Recent Pain Score: Most Recent Pain Score Pain Level 0 04/14/22 09:50 Assessment Mental Status: Awake (Alert & Oriented to Patient Baseline) Airway and Respiratory Function: Patent airway with normal (patient baseline) respiratory exam Cardiovascular Function: Hemodynamically Stable Hydration Status: Adequately Hydrated Nausea & Vomiting: No Nausea or Vomiting Pain: Pt. Denies Any Pain Peripheral Nerve Block: Patient did not receive a nerve block
[2022-04-18 11:12] LABS: Lymphocytes Fluid Relative 48 %; Neutrophils Fluid Relative 14 %
[2022-04-18 11:13] LABS: Mono/Macrophage Fluid Relative 18 %; Other Cells Fluid Relative 10 %
[2022-04-18 11:16] LABS: Path Review Fluid, other See Comments
[2022-05-12 11:54] LABS: Fungus Smear No Fungi Seen
== END 2022-04-14 10:15 | disposition home or self-care (01) ==
PROVIDERS: PCP Nurse Practitioner; Visit Provider Student in an Organized Health Care Education/Training Program
PROC: 0BJ08ZZ Inspection of Tracheobronchial Tree, Via Natural or Artificial Opening Endoscopic (ICD-10-PCS; CPT 31622; principal; 2022-04-14 07:30)
DX: J84.9 Interstitial pulmonary disease, unspecified (principal); R59.0 Localized enlarged lymph nodes; E78.5 Hyperlipidemia, unspecified; D69.6 Thrombocytopenia, unspecified; Z79.899 Other long term (current) drug therapy; J98.4 Other disorders of lung
CPT/HCPCS: 31624; 31628; 31632; 76000; 80162; 87070; 87102; 87205; 87206; 88305; 71045; 88104; J2250; J7620

== ENCOUNTER 2022-04-21 02:34 | Outpatient (CLI) | payer MEDICARE, SELFPAY ==
[2022-04-21] MEDS: Albuterol HFA 18 GM 200 PUFF INH IH (09:32)
[2022-04-21] MEDS: Inhaler, Assist Device 1 EACH MC (09:32)
--- NOTE | 2022-04-24 12:33 | W.PFT ---
Date of service: 04/21/22 Time of Service: 08:05 Pulmonary Function Test Result Requesting Provider Duchene Indications: ILD Interpretation Spirometry: There is no airflow limitation. There is no significant bronchodilator response. There is restrictive appearing spirometry. Lung Volumes: Normal lung volumes Diffusion Capacity: Normal diffusion Airway Pressure: Normal airways resistance. Impression Normal pulmonary function testing with a slightly low FVC, which could represent pseudo-restriction from obesity. Clinical Correlation therefore is recommended.
== END 2022-04-21 02:35 | disposition home or self-care (01) ==
LOC: RT 02:34
PROVIDERS: PCP Nurse Practitioner; Visit Provider Student in an Organized Health Care Education/Training Program
DX: J84.9 Interstitial pulmonary disease, unspecified (principal); R06.09 Other forms of dyspnea; R05.9 Cough, unspecified; Z87.891 Personal history of nicotine dependence
CPT/HCPCS: 94060; 94726; 94729

== ENCOUNTER → 2022-08-30 02:26 | Outpatient (CLI) | payer MEDICARE, SELFPAY ==
--- NOTE | 2022-08-30 09:18 | DI.CT_ITS ---
Exam(s) CT CHEST WO EXAM: CT CHEST WO CLINICAL HISTORY: follow up lung infiltrates after treatment,interstitial lung disease, TECHNIQUE: Imaging Protocol: Axial computed tomography images with coronal and sagittal reformatted images were created and reviewed CONTRAST MATERIAL: Noncontrast COMPARISON: CT CT CHEST PE CTA from 12/12/2020 CR XR CHEST 2V PA LATERAL from 01/26/[address] CHEST WO from 02/23/[address] CHEST HIGH RESOLUTION from 08/31/[address] CHEST WO from 01/16/2022 CR XR PORTABLE CHEST AP from 04/14/2022 FINDINGS: Tracheobronchial tree: No bronchiectasis or mucous plugging. Mediastinum and Bree: No change small right paratracheal and subcarinal lymph nodes.. Pulmonary parenchyma: No consolidation. No dominant measurable mass. Some improvement in bilateral infiltrates in the anterior lingula and right middle lobe. This has the appearance of scarring. Anil ateral roughly symmetric subpleural reticular changes remain present. Pleura: No effusion or pneumothorax. Heart: The heart is not dilated. No coronary artery calcifications are seen. Mild mitral annular calc ifications are noted. Aorta: Thoracic aorta non-dilated. Upper abdomen: Unremarkable. Bones: Degenerative changes. Soft tissues: Unremarkable. IMPRESSION: Improvement of bilateral anterior infiltrates, residual scarring present. No new abnormalities. Und erlying mild peripheral interstitial changes. RADIATION DOSE DELIVERED: 730.17mGy.cm Total DLP DATA REPOSITORY: All CT scans at this facility are submitted to the National Radiology Data Registry (NRDR) Dose Index Registry (DIR) with the [employer] (ACR). RADIATION OPTIMIZATION: All CT scans at this facility use at least one of these dose optimization te chniques: automated exposure control; mA and/or kV adjustment per patient size (includes targeted exa ms where dose is matched to clinical indication); or iterative reconstruction.
== END ==
PROVIDERS: PCP Nurse Practitioner Family; Visit Provider Student in an Organized Health Care Education/Training Program
DX: D86.0 Sarcoidosis of lung (principal); J84.9 Interstitial pulmonary disease, unspecified
CPT/HCPCS: 71250

== ENCOUNTER 2022-09-14 04:28 | Outpatient (CLI) | payer MEDICARE, SELFPAY ==
[2022-09-14] MEDS: Albuterol HFA 18 GM 200 PUFF INH IH (09:11)
[2022-09-14] MEDS: Inhaler, Assist Device 1 EACH MC (09:12)
--- NOTE | 2022-09-15 11:28 | W.PFT ---
Date of service: 09/14/22 Time of Service: 08:03 Pulmonary Function Test Result Requesting Provider Sonja Indications: Sarcoidosis Interpretation Spirometry: There is no airflow limitation. There is no significant bronchodilator response. Lung Volumes: Normal lung volumes Diffusion Capacity: Normal diffusion Airway Pressure: Normal airways resistance Impression Normal pulmonary function testing. Note: When compared to 04/21/22, lung function has significantly improved. Clinical Correlation therefore is recommended.
== END 2022-09-14 04:29 | disposition home or self-care (01) ==
LOC: RT 04:28
PROVIDERS: PCP Nurse Practitioner Family; Visit Provider Student in an Organized Health Care Education/Training Program
DX: D86.0 Sarcoidosis of lung (principal); J84.9 Interstitial pulmonary disease, unspecified
CPT/HCPCS: 94060; 94726; 94729

== ENCOUNTER 2022-09-20 03:06 | Outpatient (CLI) | payer MEDICARE, SELFPAY ==
--- NOTE | 2022-09-20 06:45 | DI.US_ITS ---
Exam(s) US SCROTUM EXAM: US SCROTUM CLINICAL HISTORY: INCREASED TESTICULAR SWELLING, N50.89 TECHNIQUE: Scrotal ultrasound was performed utilizing scanning with high-frequency transducer. COMPARISON: No exams were available for comparison FINDINGS: The testes are normal in size and shape and are normal in echotexture. There is normal vascular flow of the testes on Doppler evaluation and flow is symmetrical. No testicular mass identified. 1 mill imeter right testicular calcification noted The epididymi are unremarkable in appearance with normal vascular flow. Incidental 4 millimeter righ t spermatocele noted There is no evidence of a varicocele. There are bilateral hydroceles, measuring up to about 6 cm in diameter on the right and about 12 cm in diameter on the left.. IMPRESSION: Bilateral hydroceles. No testicular abnormality. RADIATION DOSE DELIVERED:
== END 2022-09-20 03:26 ==
PROVIDERS: PCP Nurse Practitioner Family; Visit Provider Nurse Practitioner Family
DX: N50.89 Other specified disorders of the male genital organs (principal); N43.2 Other hydrocele; N43.41 Spermatocele of epididymis, single
CPT/HCPCS: 76870

== ENCOUNTER 2022-10-04 01:47 | Outpatient (CLI) | payer MEDICARE, SELFPAY ==
[2022-10-04 10:18] LABS: Anion Gap 8.6 mmol/L (3-11); BUN 23 mg/dL (7-18); CO2 29.4 mmol/L (21.0-32.0); CREATININE 1.2 mg/dL (0.70-1.30); Calcium 9.5 mg/dL (8.5-10.1); Chloride 101 mmol/L (98-107); Estimated GFR 64.25 (mL/min/1.73m2); Glucose 84 mg/dL (74-106); Potassium 4.2 mmol/L (3.5-5.1); Sodium 139 mmol/L (136-145)
[2022-10-04 10:26] LABS: Hemoglobin A1C 6.4 % (<5.7)
== END 2022-10-04 01:48 | disposition home or self-care (01) ==
LOC: LBO 01:47
PROVIDERS: PCP Nurse Practitioner Family; Visit Provider Nurse Practitioner Family
DX: I10 Essential (primary) hypertension (principal); R73.03 Prediabetes
CPT/HCPCS: 36415; 80048; 83036

== ENCOUNTER → 2022-12-28 07:40 | Outpatient (BNVA) | payer MEDICARE, SELFPAY | PROVIDERS: PCP Nurse Practitioner Family; Referring Provider Nurse Practitioner; Visit Provider Physical Therapy Assistant | DX: Z12.11 Encounter for screening for malignant neoplasm of colon (principal); Z86.010 Personal history of colon polyps ==

== ENCOUNTER → 2022-12-28 08:35 | Outpatient (BNVA) | payer MEDICARE, SELFPAY | PROVIDERS: PCP Nurse Practitioner Family; Referring Provider Nurse Practitioner Family; Visit Provider Nurse Practitioner Gerontology | DX: N43.3 Hydrocele, unspecified (principal); N43.40 Spermatocele of epididymis, unspecified | CPT/HCPCS: 99214 ==

== ENCOUNTER 2023-01-01 08:47 | Outpatient (CLI) | payer MEDICARE, SELFPAY ==
--- NOTE | 2023-01-01 08:45 | RT.EKG_ITS ---
APPROVED REPORT Exam: Resting ECG Reason for Exam: SARCOIDOSIS OF LUNG Patient Location: O HR:59 bpm ECG Measurements Heart Rate 59 AXIS [place] 152 P 70 QRSd 91 QRS 31 QT 393 T 123 QTc 390 Conclusion Sinus rhythm...normal P axis, V-rate 50- 99 Left ventricular hypertrophy with repolarization abnormalities
== END 2023-01-01 08:48 | disposition home or self-care (01) ==
PROVIDERS: PCP Nurse Practitioner Family; Visit Provider Student in an Organized Health Care Education/Training Program
DX: I42.2 Other hypertrophic cardiomyopathy (principal); D86.0 Sarcoidosis of lung
CPT/HCPCS: 93005; 93010

== ENCOUNTER 2023-01-08 09:04 | Day surgery (SDC) | payer MEDICARE, SELFPAY ==
[2023-01-08 09:20] VITALS: BP 150/68; PULSE 84; RESP 18; TEMP 36.7; O2SAT 97
--- NOTE | 2023-01-08 09:55 | W.ANESPRE ---
General Info Date of Service Date Performed: 01/08/23 Height: 5 ft 6 in Weight: 101.6 kg Body Mass Index (BMI): 36.1 Surgical Procedure: Operation Date: 01/08/23 11:20 Proposed Procedure Side Surgeon raghav Kenney MD Meds Allergies and Home Medications Allergies Allergy/AdvReac Type Severity Reaction Status Date / Time No Known Allergies Allergy Verified 01/08/23 09:42 Home Medication Medication Instructions Recorded albuterol sulfate 90 mcg/actuation 2 puff inhalation Q4H PRN PRN 11/24/21 aerosol inhaler shortness of breath or wheezing #18 grams ibuprofen 200 mg tablet 600 mg PO Q6H PRN 04/14/22 amlodipine 10 mg tablet 10 mg PO DAILY #90 tab-caps 10/13/22 chlorthalidone 25 mg tablet 25 mg PO DAILY #90 tabs 10/13/22 lisinopril 40 mg tablet 40 mg PO DAILY #90 tab-caps 10/13/22 bisacodyl 5 mg tablet,delayed 5 mg PO ONCE #4 tabs 12/28/22 release (Dulcolax (bisacodyl)) polyethylene glycol 3350 17 17 g PO ONCE #238 grams 12/28/22 gram/dose oral powder atorvastatin 40 mg tablet 20 mg PO DAILY 01/08/23 Current Visit Medications: Current Medications Generic Name Dose Route Start Last Admin Trade Name Freq PRN Reason Stop Dose Admin Ringer's Solution 1,000 mls @ 80 mls/hr 01/08/23 06:00 IV 02/04/23 23:59 INFUSION SONI IV Miscellaneous Supplies 1 each 01/08/23 06:00 Iv Access IV 02/04/23 23:59 DIRECTED SONI Sodium Chloride 0 ml 01/08/23 06:00 Normal Saline Flush 10 Ml Syr IV 02/04/23 23:59 PRN PRN Sodium Chloride 0 ml 01/08/23 06:00 Normal Saline 10 Ml Vial IJ 02/04/23 23:59 DIRECTED PRN Sterile Water 0 ml 01/08/23 06:00 Water,Injection,Sterile 10 Ml Vial IJ 02/04/23 23:59 DIRECTED PRN PFSH Active Problems Active Problems: Problem Status Onset Code Tubular adenoma 10/01/13 D36.9 Essential hypertension 07/30/13 I10 Hyperlipidemia E78.5 B12 deficiency anemia D51.[address] scan, chest R93.89 Incomplete bladder emptying R33.9 Mediastinal lymphadenopathy R59.0 ILD (interstitial lung disease) J84.9 Encounter for screening for COVID-19 Z11.52 Sarcoidosis of lung D86.0 Scrotal swelling N50.89 Diabetes E11.9 Hydrocele N43.3 Screening for colon cancer Z12.11 Medical History Medical History (Updated 01/08/23 @ 09:41 by Yenifer Sevilla) Acute type A viral hepatitis (08/21/13) Bilateral bunions History of COVID-19 Obesity (BMI 35.0-39.9 without comorbidity) Prediabetes Testicle swelling left sided, nonpainful Surgical History Surgical History Excision, Lipoma H/O hernia repair History of bronchoscopy Hx of colonoscopy Tobacco Smoking/Tobacco Use Status: Former Tobacco Use Passive smoking exposure: Yes Second hand exposure: Yes Alcohol Alcohol Intake: former Substance Use Substance use: Never Substance use type: does not use Vital Signs and Lab Results Vital Signs Most Recent Vital Signs in EMR: Most Recent Vital Signs Temp Pulse Resp BP Pulse Ox 36.7 C 84 18 150/68 H 97 01/08/23 09:20 01/08/23 09:20 01/08/23 09:20 01/08/23 09:20 01/08/23 09:20 Lab Results Blood Type / Crossmatch: No Data to Display Complete Blood Count: No Data to Display Complete Metabolic Panel: No Data to Display Liver Function Panel: No Data to Display Coagulation Panel: No Data to Display Cardiac Panel: No Data to Display Arterial Blood Gas: No Data to Display Venous Blood Gas: No Data to Display Pancreas Panel: No Data to Display Thyroid Panel: No Data to Display Infectious Disease: No Data to Display Blood Cultures: No Data to Display Toxicology Panel: No Data to Display Imaging and Studies Imaging and Studies Study information below may be from another EMR and interpreted by another provider. Please see original notes in EMR for more complete details. EKG Summary: Conclusion Sinus rhythm...normal P axis, V-rate 50- 99 Left ventricular hypertrophy with repolarization abnormalities 01/04 Stress Test Summary: Stress ECG Conclusion 1. The patient exercised for 3 minutes (5 METS). Exercise was stopped due to dyspnea. 2. Patient had normal blood pressure and heart rate response to exercise. Exercise capacity was decreased. 3. There was no evidence of ischemia on the ECG portion of the exam. Dominguez Treadmill Score is 3 which is Moderate risk. 02/02 Echocardiogram Summary: Conclusion Left Ventricle : The left ventricle is normal size. The left ventricular systolic function is normal. The left ventricular ejection fraction is within the normal range. There is normal left ventricular wall thickness. There is normal LV segmental wall motion. The left ventricular diastolic function is normal. LVEF is 58%. Right Ventricle : The right ventricle is normal size. The right ventricular systolic function is normal. The RVSP is 33.2mmHg. Atria : The left atrium size is normal. The right atrium size is normal. Aortic Valve : The aortic valve is normal in structure. Aortic valve is trileaflet. Mild aortic regurgitation. There is no aortic valvular stenosis. Mitral Valve : Moderate mitral annular calcification. Mild mitral regurgitation. No evidence of mitral valve stenosis. Great Vessels : The aortic root is normal in size. The ascending aorta is normal in size. Aortic arch is normal in caliber. IVC is normal in size and collapses >50% with inspiration. 10/03 Pulmonary Function Summary: Impression Normal pulmonary function testing. Note: When compared to 04/21/22, lung function has significantly improved. Clinical Correlation therefore is recommended. Impression Normal pulmonary function testing. Note: When compared to 04/21/22, lung function has significantly improved. Clinical Correlation therefore is recommended. Anesthesia Assessment and Plan Anesthesia History Personal History: No History of Anesthesia Complications and Other Family History: No Family History of Anesthesia Complications Exercise Tolerance Exercise Tolerance: Metabolic Equivalents>4 Cardiac & Pulmonary Exam Cardiac Exam: Normal S1/S2 Heart Sounds Pulmonary Exam: Clear Bilateral Breath Sounds Implantable Cardiac Device Does patient have a Pacemaker or an ICD?: No Airway Exam Known Difficult Airway: No Mallampati Class: 2 Mouth Opening: Normal (> 3cm) Thyromental Distance: Greater than 3 cm Neck Range of Motion: Full ROM Neck Circumference: Normal Teeth Condition: Normal Dentition and Generalized Poor Dentition Airway Comments: Multiple missing Top 5 teeth Capped ASA Classification ASA Score: ASA 2 Emergency Case?: No NPO Status NPO Status: NPO Clears >2 hours, Solids >8 hours Anesthesia Plan Resuscitation Status: Full Code Anesthesia Technique: General Anesthesia Airway Planned: Natural Airway Monitors Used: Standard Monitors
[2023-01-08] MEDS: Lactated Ringers 1,000 ML 80 ML IV (10:05)
--- NOTE | 2023-01-08 10:14 | W.COLOREPORT ---
Date of service: 01/08/23 Time of Service: 10:30 Colonoscopy Report Procedure Description: Procedures performed: 1. Colonoscopy with cold forceps polypectomy x2 Preoperative diagnosis: Surveillance colonoscopy, colon polyps Postoperative diagnosis: Rectal polyps, sigmoid diverticulosis Surgeon: Apurva Kenney Anesthesia: Ivan Indication for procedure: Patient is a 73-year-old man who does not have a family history of colon cancer and he does not have any symptoms. His last colonoscopy was 10 years ago and he did have an adenomatous polyp removed. He has never had intra-abdominal surgery. Findings: Terminal ileum was normal. There are diverticular changes present in the sigmoid colon. No active diverticulitis or fibrosis noted. In the rectum, there were 2 separate adenomatous?appearing polyps that were removed with cold forceps technique. There were small 2-3 mm in size. Mild grade 1 internal hemorrhoids noted. Benign external anal skin tags. Surveillance/follow-up recommendations: Pending path results. If simple tubular adenomatous in 7-10-year follow-up is acceptable. If tubulovillous or sessile serrated histology (not suspected), then 3 years. Hyperplastic would result in a 10-year follow-up. Complications: None Blood loss: Minimal Specimens:?? YES Quality of Prep:?? Good Procedure in detail: Written consent was obtained from the patient who was in agreement with the risks, benefits and indications of the procedure.? We went to the endoscopy suite and laid the patient in left lateral decubitus position.? Anesthesia was administered which was tolerated well.? A timeout was performed and when we are all in agreement we began the procedure. Digital rectal exam and visual examination was performed and within normal limits.? A well?lubricated colonoscope was advanced without difficulty all the way to the cecum identified by the ileocecal valve, and triangular folds and appendiceal orifice. The terminal ileum was intubated and appeared normal. It was then slowly withdrawn.?? Retroflexion was performed in the rectum.? The findings/interventions are noted above. The scope was then removed and the patient tolerated the procedure well and was then taken back to the PACU in hemodynamically stable condition.
[2023-01-08 10:20] VITALS: BMI 36.1
--- NOTE | 2023-01-08 10:49 | BOWEL_PTH ---
PATIENT: Jens Sellers LOC: [facility] U#:[id number] AGE/SX: 73/M ROOM: RE01/08/[address]: Froylan Kenney : 1950 BED: DIS: 01/08/2023 SPEC #: [id number] RECD: 01/08/23 12:32 STATUS: MELANIE REQ #: [id number] DB: 01/08/23 10:[address]: Froylan Kenney DEPT: Surgical Specimen RECD BY: Sheba Echeverria ENTERED: 01/08/23 12:33 SP TYPE: Bowel OTHR DR: Wale Valdez DNP Tissues: 1 - BIOPSY BOWEL 2 - BIOPSY BOWEL Procedures: GROSS AND MICRO LEVEL 4 Comments: [id number]
[2023-01-08 11:05] VITALS: BP 99/61; PULSE 74; RESP 16; TEMP 36.5; O2SAT 94
--- NOTE | 2023-01-08 11:16 | W.ANESPOSTOP ---
Postoperative Evaluation Date, Time and Location Date Performed: 01/08/23 Time Performed: 11:17 Patient Location: Day Surgery Unit Vital Signs Most Recent Imported Vital Signs: Most Recent Vital Signs Temp Pulse Resp BP Pulse Ox 36.5 C 74 16 99/61 L 94 01/08/23 11:05 01/08/23 11:05 01/08/23 11:05 01/08/23 11:05 01/08/23 11:05 Pain Score Most Recent Pain Score: Most Recent Pain Score Pain Level 0 01/08/23 11:05 Assessment Mental Status: Awake (Alert & Oriented to Patient Baseline) Airway and Respiratory Function: Patent airway with normal (patient baseline) respiratory exam Cardiovascular Function: Hemodynamically Stable Hydration Status: Adequately Hydrated Nausea & Vomiting: No Nausea or Vomiting Pain: Pt. Denies Any Pain Peripheral Nerve Block: Patient did not receive a nerve block
[2023-01-08 11:28] VITALS: BP 142/77; PULSE 68; RESP 16; TEMP 36.9; O2SAT 94
== END 2023-01-08 11:45 | disposition home or self-care (01) ==
PROVIDERS: PCP Nurse Practitioner Family; Visit Provider Student in an Organized Health Care Education/Training Program
PROC: 0DJD8ZZ Inspection of Lower Intestinal Tract, Via Natural or Artificial Opening Endoscopic (ICD-10-PCS; CPT 45378; principal; 2023-01-08 11:15)
DX: Z12.11 Encounter for screening for malignant neoplasm of colon (principal); Z80.0 Family history of malignant neoplasm of digestive organs; Z86.010 Personal history of colon polyps; K62.1 Rectal polyp; K57.30 Diverticulosis of large intestine without perforation or abscess without bleeding
CPT/HCPCS: 45380; 88305

== ENCOUNTER 2023-01-17 03:06 | Outpatient (CLI) | payer MEDICARE, SELFPAY ==
[2023-01-17 10:31] LABS: Hemoglobin A1C 7.2 % (<5.7)
[2023-01-17 10:34] LABS: ALT 24 U/L (16-63); AST 13 U/L (15-37); Albumin 3.6 g/dL (3.4-5.0); Alkaline Phosphatase 96 U/L (46-116); Anion Gap 7.7 mmol/L (3-11); BUN 14 mg/dL (7-18); Bilirubin, Total 1.1 mg/dL (0.2-1.0); CO2 30.3 mmol/L (21.0-32.0); CREATININE 1.2 mg/dL (0.70-1.30); Calcium 9.1 mg/dL (8.5-10.1); Calculated LDL 58 mg/dL (<100); Chloride 103 mmol/L (98-107); Cholesterol 114 mg/dL (<200); Estimated GFR 63.85 (mL/min/1.73m2); Glucose 121 mg/dL (74-106); HDL Cholesterol 38 mg/dL (40-60); Potassium 4.2 mmol/L (3.5-5.1); Sodium 141 mmol/L (136-145); Triglyceride 90 mg/dL (<150)
== END 2023-01-17 03:07 | disposition home or self-care (01) ==
LOC: LBO 03:06
PROVIDERS: PCP Nurse Practitioner Family; Visit Provider Nurse Practitioner Family
DX: E78.2 Mixed hyperlipidemia (principal); E11.9 Type 2 diabetes mellitus without complications
CPT/HCPCS: 36415; 80053; 80061; 83036

== ENCOUNTER 2023-01-19 11:49 | Outpatient (CLI) | payer MEDICARE, SELFPAY ==
--- NOTE | 2023-01-19 11:15 | DI.RAD_ITS ---
Exam(s) XR CHEST 2V PA LATERAL EXAM: XR CHEST 2V PA LATERAL CLINICAL HISTORY: cough, R05.9 TECHNIQUE: 2D digital imaging was performed of the chest. Two images were obtained. PA and lateral views were obtained. COMPARISON: CR XR CHEST 2V PA LATERAL from 01/26/2021 CR XR PORTABLE CHEST AP from 04/14/2022 FINDINGS: MEDIASTINUM: Normal. HEART: Normal. PULMONARY VASCULATURE: Normal. LUNGS: The lungs are hyperinflated with flattened diaphragms suggesting underlying COPD. Chronic sta ble interstitial fibrotic changes are present. No focal consolidating infiltrates are seen. PLEURAL SPACE: No pleural effusion or pneumothorax. BONE:Within normal limits for the patient's age. OTHER FINDINGS:Normal. IMPRESSION: No acute pulmonary findings. DATA REPOSITORY: RADIATION DOSE DELIVERED:
== END 2023-01-19 12:09 ==
LOC: DI 11:51
PROVIDERS: PCP Nurse Practitioner Family; Visit Provider Physician Assistant
DX: R05.9 Cough, unspecified (principal)
CPT/HCPCS: 71046

== ENCOUNTER 2023-02-07 12:08 | Outpatient (REF) | payer MEDICARE, SELFPAY ==
--- NOTE | 2023-02-07 08:55 | SKI_PTH ---
PATIENT: Jens Sellers LOC: [facility] U#:[id number] AGE/SX: 73/M ROOM: RE02/07/[address]: Wale Valdez DNP : 1950 BED: DIS: 02/07/2023 SPEC #: [id number] RECD: 02/07/23 12:42 STATUS: MELANIE REMartin #: [id number] DB: 02/07/23 08:[address]: Wale Cortez DEPT: Surgical Specimen RECD BY: Sheba Echeverria Tissues: 1 - SKIN BIOPSY(SHAVE/PUNCH) Procedures: SKIN LEVEL 4 Comments: [id number]
== END 2023-02-07 12:09 | disposition home or self-care (01) ==
LOC: LBN 12:08
PROVIDERS: PCP Nurse Practitioner Family; Visit Provider Nurse Practitioner Family
DX: D23.62 Other benign neoplasm of skin of left upper limb, including shoulder (principal)
CPT/HCPCS: 88305

== ENCOUNTER 2023-04-26 03:21 | Outpatient (CLI) | payer MEDICARE, SELFPAY ==
[2023-04-26] MEDS: Albuterol HFA 18 GM 200 PUFF INH IH (16:37)
[2023-04-26] MEDS: Inhaler, Assist Device 1 EACH MC (16:38)
--- NOTE | 2023-04-30 09:29 | W.PFT ---
Date of service: 04/26/23 Time of Service: 15:29 Pulmonary Function Test Result Indications: ILD Interpretation Spirometry: There is mild airflow limitation. There is likely a bronchodilator response. Lung Volumes: Normal lung volumes Diffusion Capacity: Normal diffusion Airway Pressure: Normal airways resistance. Impression Mild airflow obstruction, likely significant bronchodilator response (although 12% increase not technically met). Otherwise normal PFT's Note: As compared to 09/14/22, there is now obstruction, which was not previously evident. Volumes and diffusion are stable. Clinical Correlation therefore is recommended.
== END 2023-04-26 03:22 | disposition home or self-care (01) ==
LOC: RT 03:21
PROVIDERS: PCP Nurse Practitioner Family; Visit Provider Physician Assistant Surgical
DX: D86.0 Sarcoidosis of lung (principal); J84.9 Interstitial pulmonary disease, unspecified
CPT/HCPCS: 94060; 94726; 94729

== ENCOUNTER 2023-04-27 00:31 | Outpatient (CLI) | payer MEDICARE, SELFPAY ==
--- NOTE | 2023-04-27 07:45 | DI.CT_ITS ---
Exam(s) CT CHEST WO EXAM: CT CHEST WO CLINICAL HISTORY: Sarcoidosis,? recurrence,INTERSTITIAL LUNG DISEASE,J84.9,D86.0. TECHNIQUE: Multi planar reconstructions were performed. CONTRAST MATERIAL: None COMPARISON: CT CT CHEST WO from 08/30/2022 FINDINGS: CHEST: LUNGS: No new infiltrates nor pleural effusions. Atelectasis or scarring in the right middle lobe ap pears unchanged as are increased markings in the inferior lingular segment of the opposite-left lung. The lower lobes appear unremarkable including the superior segments. Upper lobes unremarkable. No new nodules. No new interstitial disease. No new significant focal findings in the trachea and mainstem bronchi. There is no bronchiectasis. MEDIASTINUM: No increasing mediastinal nor hilar adenopathy. Mild subcarinal adenopathy again noted. No supraclavicular nor prominent axillary adenopathy. Visualized thyroid unremarkable. CARDIAC: Heart size is normal. There is no pericardial effusion.Caliber of the thoracic aorta is wit hin normal limits. VISUALIZED UPPER ABDOMEN:No adrenal masses. No splenomegaly. OSSEOUS: No significant osseous lesions.No fractures.. IMPRESSION: 1. Stable appearance when compared to the CT scan of 08/30/2022. 2. Findings as above but without new infiltrates, new interstitial disease, new lung nodules, nor new intrathoracic adenopathy. 3. No pleural effusions. No new osseous findings. RADIATION DOSE DELIVERED: 729.11mGy.cm Total DLP DATA REPOSITORY: All CT scans at this facility are submitted to the National Radiology Data Registry (NRDR) Dose Index Registry (DIR) with the [employer] ([employer]). RADIATION OPTIMIZATION: All CT scans at this facility use at least one of these dose optimization te chniques: automated exposure control; mA and/or kV adjustment per patient size (includes targeted exa ms where dose is matched to clinical indication); or iterative reconstruction.
== END 2023-04-27 00:51 ==
LOC: DI 00:32
PROVIDERS: PCP Nurse Practitioner Family; Visit Provider Physician Assistant Surgical
DX: D86.0 Sarcoidosis of lung (principal); J84.9 Interstitial pulmonary disease, unspecified
CPT/HCPCS: 71250

== ENCOUNTER 2023-06-14 02:19 | Outpatient (CLI) | payer MEDICARE, SELFPAY ==
[2023-06-14 13:31] LABS: HCT 40.4 % (40.0-50.0); HGB 13.2 g/dL (13.5-17.5); MCH 27.7 pg (27.0-33.0); MCHC 32.7 % (32.0-36.0); MCV 85 fL (80-95); Platelet Count 256 10^3/uL (130-400); RBC 4.76 10^6/uL (4.36-5.78); RDW 13.4 % (11.8-14.1); RDW-SD 41.9 fL; WBC 8.35 10^3/uL (4.4-10.8)
[2023-06-14 13:57] LABS: Anion Gap 11.1 mmol/L (3-11); BUN 26 mg/dL (7-18); CO2 24.9 mmol/L (21.0-32.0); CREATININE 1.3 mg/dL (0.70-1.30); Calcium 8.9 mg/dL (8.5-10.1); Chloride 103 mmol/L (98-107); Estimated GFR 58.01 (mL/min/1.73m2); Glucose 94 mg/dL (74-106); Potassium 4.2 mmol/L (3.5-5.1); Sodium 139 mmol/L (136-145)
== END 2023-06-14 02:20 | disposition home or self-care (01) ==
PROVIDERS: PCP Nurse Practitioner Family; Visit Provider Nurse Practitioner Family
DX: E11.9 Type 2 diabetes mellitus without complications (principal); I10 Essential (primary) hypertension; D51.9 Vitamin B12 deficiency anemia, unspecified
CPT/HCPCS: 36415; 80048; 85027

== ENCOUNTER → 2023-06-27 09:16 | Outpatient (BNVA) | payer MEDICARE, SELFPAY | PROVIDERS: PCP Nurse Practitioner Family; Referring Provider Nurse Practitioner Family; Visit Provider Nurse Practitioner Gerontology | DX: N43.3 Hydrocele, unspecified (principal); I10 Essential (primary) hypertension; E11.9 Type 2 diabetes mellitus without complications | CPT/HCPCS: 99212 ==

== ENCOUNTER → 2023-11-02 08:20 | Outpatient (BNVA) | payer MEDICARE, SELFPAY | PROVIDERS: PCP Nurse Practitioner Family; Referring Provider Nurse Practitioner Family; Visit Provider Student in an Organized Health Care Education/Training Program | DX: D86.0 Sarcoidosis of lung (principal); R59.0 Localized enlarged lymph nodes; J84.9 Interstitial pulmonary disease, unspecified | CPT/HCPCS: 99214 ==

== ENCOUNTER 2023-11-08 09:20 | Outpatient (CLI) | payer MEDICARE, SELFPAY ==
--- NOTE | 2023-11-08 09:15 | RT.EKG_ITS ---
APPROVED REPORT Exam: Resting ECG Reason for Exam: yearly screening Patient Location: O HR:68 bpm ECG Measurements Heart Rate 68 AXIS CO 150 P 67 QRSd 98 QRS 44 QT 370 T 133 QTc 394 Conclusion Sinus rhythm...normal P axis, V-rate 50- 99 LVH with secondary repolarization abnormality...multi-LVH criteria, abnrm ST-T I have reviewed and interpreted ECG and agree with software generated interpretation.
== END 2023-11-08 09:21 | disposition home or self-care (01) ==
PROVIDERS: PCP Nurse Practitioner Family; Visit Provider Student in an Organized Health Care Education/Training Program
DX: D86.0 Sarcoidosis of lung (principal)
CPT/HCPCS: 93005; 93010

== ENCOUNTER 2024-04-08 03:31 | Outpatient (CLI) | payer MEDICARE, SELFPAY ==
[2024-04-08] MEDS: Levalbuterol HFA 15 GM INH 4 PUFF IH (16:31)
[2024-04-08] MEDS: Inhaler, Assist Device 1 EACH MC (16:31)
--- NOTE | 2024-04-21 16:04 | W.PFT ---
Date of service: 04/08/24 Time of Service: 15:16 Pulmonary Function Test Result Requesting Provider Wendy Casillas Indications: Sarcoidosis Interpretation Spirometry: decreased FEV1/FVC, normal FEV1 and FVC Lung Volumes: Normal lung volumes, elevated RV/TLC c/w air trapping Diffusion Capacity: normal diffusion Impression Mild obstructive ventilatory defect w/ reversibility after albuterol. Normal lung volumes but mild air trapping. Normal diffusion. Flow volume curve suggests obstruction. Clinical Correlation therefore is recommended.
== END 2024-04-08 03:32 | disposition home or self-care (01) ==
LOC: RT 03:31
PROVIDERS: PCP Nurse Practitioner Family; Visit Provider Student in an Organized Health Care Education/Training Program
DX: D86.0 Sarcoidosis of lung (principal); J44.9 Chronic obstructive pulmonary disease, unspecified
CPT/HCPCS: 00123; 94060; 94726; 94729

== ENCOUNTER → 2024-04-30 09:02 | Outpatient (BNVA) | payer MEDICARE, SELFPAY | PROVIDERS: PCP Nurse Practitioner Family; Referring Provider Nurse Practitioner Family; Visit Provider Physician Assistant Surgical | DX: R59.0 Localized enlarged lymph nodes (principal); J84.9 Interstitial pulmonary disease, unspecified; D86.0 Sarcoidosis of lung | CPT/HCPCS: 99214 ==

== ENCOUNTER 2024-04-30 10:24 | Outpatient (CLI) | payer MEDICARE, SELFPAY ==
[2024-04-30 10:57] LABS: Abs Immature Grans 0.06 10^3/uL (0.0-0.06); Absolute Basophil Count 0.09 10^3/uL (0.0-0.2); Absolute Lymphocyte Count 1.67 10^3/uL (1.2-3.4); Absolute Monocyte Count 0.93 10^3/uL (0.1-0.8); Absolute Neutrophil Count 5.31 10^3/uL (1.2-6.7); HCT 37.5 % (40.0-50.0); HGB 11.8 g/dL (13.5-17.5); Immature Grans % 0.7 %; Lymphocytes % 19.1 %; MCH 26.7 pg (27.0-33.0); MCHC 31.5 % (32.0-36.0); MCV 85 fL (80-95); MPV 8.9 fL (8.0-11.0); Monocytes % 10.6 %; Neutrophils % 60.6 %; Platelet Count 343 10^3/uL (130-400); RBC 4.42 10^6/uL (4.36-5.78); RDW 13.5 % (11.8-14.1); WBC 8.76 10^3/uL (4.4-10.8)
[2024-04-30 11:14] LABS: ALT 19 U/L (16-63); AST 12 U/L (15-37); Albumin 3.6 g/dL (3.4-5.0); Alkaline Phosphatase 94 U/L (46-116); Anion Gap 8.6 mmol/L (3-11); BUN 24 mg/dL (7-18); Bilirubin, Total 0.58 mg/dL (0.2-1.0); CO2 26.4 mmol/L (21.0-32.0); CREATININE 1.6 mg/dL (0.70-1.30); Calcium 9.1 mg/dL (8.5-10.1); Chloride 103 mmol/L (98-107); Estimated GFR 44.93 (mL/min/1.73m2); Glucose 120 mg/dL (74-106); Potassium 4.1 mmol/L (3.5-5.1); Sodium 138 mmol/L (136-145); Total Protein 7.4 g/dL (6.4-8.2)
== END 2024-04-30 10:25 | disposition home or self-care (01) ==
LOC: LBO 10:24
PROVIDERS: PCP Nurse Practitioner Family; Visit Provider Student in an Organized Health Care Education/Training Program
DX: D86.0 Sarcoidosis of lung (principal); D86.9 Sarcoidosis, unspecified
CPT/HCPCS: 36415; 80053; 85025

== ENCOUNTER → 2024-06-25 09:21 | Outpatient (BNVA) | payer MEDICARE, SELFPAY | PROVIDERS: PCP Nurse Practitioner Family; Referring Provider Nurse Practitioner Family; Visit Provider Nurse Practitioner Gerontology | DX: N43.3 Hydrocele, unspecified (principal); R60.0 Localized edema; N28.9 Disorder of kidney and ureter, unspecified | CPT/HCPCS: 51798; 99213 ==

== ENCOUNTER 2024-11-05 13:28 | Outpatient (REF) | payer MEDICARE, SELFPAY ==
[2024-11-05 16:20] LABS: Anion Gap 8.6 mmol/L (3-11); BUN 28 mg/dL (7-18); CO2 27.4 mmol/L (21.0-32.0); CREATININE 1.5 mg/dL (0.70-1.30); Calcium 9.7 mg/dL (8.5-10.1); Chloride 104 mmol/L (98-107); Estimated GFR 48.55 (mL/min/1.73m2); Glucose 102 mg/dL (74-106); Potassium 4.5 mmol/L (3.5-5.1); Sodium 140 mmol/L (136-145)
== END 2024-11-05 13:29 | disposition home or self-care (01) ==
LOC: LBN 13:28
PROVIDERS: PCP Nurse Practitioner Family; Visit Provider Nurse Practitioner Family
DX: E11.9 Type 2 diabetes mellitus without complications (principal)
CPT/HCPCS: 80048

== ENCOUNTER 2025-04-28 08:11 | Outpatient (CLI) | payer MEDICARE, SELFPAY ==
[2025-04-28] MEDS: Inhaler, Assist Device 1 EACH MC (09:20)
[2025-04-28] MEDS: Levalbuterol HFA 15 GM INH 4 PUFF IH (09:20)
--- NOTE | 2025-05-11 11:16 | W.PFT ---
Date of service: 04/28/25 Time of Service: 08:05 Pulmonary Function Test Result Indications: Sarcoidosis Impression 1. Good patient effort was noted. ATS standards for reproducibility were met. 2. Spirometry showed mild obstructive lung disease with an FEV1 of 91% (2.25 L) 3. Following the administration of a bronchodilator there was a significant response 4. TLC is normal. No evidence of restrictive lung disease 5. DLCO is normal
== END 2025-04-28 08:12 | disposition home or self-care (01) ==
LOC: RT 08:11
PROVIDERS: PCP Nurse Practitioner Family; Referring Provider Physician Assistant Surgical; Visit Provider Internal Medicine Pulmonary Disease
DX: D86.0 Sarcoidosis of lung (principal)
CPT/HCPCS: 94060; 94726; 94729

== ENCOUNTER → 2025-05-06 09:36 | Outpatient (BNVA) | payer MEDICARE, SELFPAY | PROVIDERS: PCP Nurse Practitioner Family; Referring Provider Nurse Practitioner Family; Visit Provider Physician Assistant Surgical | DX: J84.9 Interstitial pulmonary disease, unspecified (principal); R59.0 Localized enlarged lymph nodes; D86.0 Sarcoidosis of lung; Z87.891 Personal history of nicotine dependence | CPT/HCPCS: 99214 ==

== ENCOUNTER 2025-05-06 11:16 | Outpatient (CLI) | payer MEDICARE, SELFPAY ==
[2025-05-06 10:54] LABS: Abs Immature Grans 0.02 10^3/uL (0.0-0.06); HCT 44.3 % (40.0-50.0); HGB 14.3 g/dL (13.5-17.5); Immature Grans % 0.2 %; MCH 26.8 pg (27.0-33.0); MCHC 32.3 % (32.0-36.0); MCV 83 fL (80-95); MPV 9.0 fL (8.0-11.0); Platelet Count 216 10^3/uL (130-400); RBC 5.34 10^6/uL (4.36-5.78); RDW 14.6 % (11.8-14.1); RDW-SD 43.9 fL; WBC 8.09 10^3/uL (4.4-10.8)
[2025-05-06 11:25] LABS: ALT 28 U/L (16-63); AST 17 U/L (15-37); Albumin 3.6 g/dL (3.4-5.0); Alkaline Phosphatase 123 U/L (46-116); Anion Gap 9.7 mmol/L (3-11); BUN 31 mg/dL (7-18); Bilirubin, Total 0.9 mg/dL (0.2-1.0); CO2 25.3 mmol/L (21.0-32.0); Calcium 8.9 mg/dL (8.5-10.1); Chloride 104 mmol/L (98-107); Estimated GFR 52.41 (mL/min/1.73m2); Glucose 99 mg/dL (74-106); Potassium 4.3 mmol/L (3.5-5.1); Sodium 139 mmol/L (136-145); Total Protein 6.8 g/dL (6.4-8.2)
== END 2025-05-06 11:17 | disposition home or self-care (01) ==
PROVIDERS: PCP Nurse Practitioner Family; Visit Provider Physician Assistant Surgical
DX: J84.9 Interstitial pulmonary disease, unspecified (principal)
CPT/HCPCS: 36415; 80053; 85025

== ENCOUNTER 2025-05-13 08:24 | Outpatient (CLI) | payer MEDICARE, SELFPAY ==
--- NOTE | 2025-05-13 08:30 | RT.EKG_ITS ---
APPROVED REPORT Exam: Resting ECG Reason for Exam: sarcoid Patient Location: O HR:56 bpm ECG Measurements Heart Rate 56 AXIS NE 154 P 71 QRSd 99 QRS 49 QT 403 T 145 QTc 389 Conclusion Sinus rhythm...normal P axis, V-rate 50- 99 Left ventricular hypertrophy with repolarization abnormalities
== END 2025-05-13 08:25 | disposition home or self-care (01) ==
PROVIDERS: PCP Nurse Practitioner Family; Visit Provider Physician Assistant Surgical
DX: J84.9 Interstitial pulmonary disease, unspecified (principal)
CPT/HCPCS: 93005; 93010

== ENCOUNTER → 2025-06-24 09:13 | Outpatient (BNVA) | payer MEDICARE, SELFPAY | PROVIDERS: PCP Nurse Practitioner Family; Visit Provider Nurse Practitioner Gerontology | DX: N43.3 Hydrocele, unspecified (principal); R60.0 Localized edema; N28.9 Disorder of kidney and ureter, unspecified | CPT/HCPCS: 99213 ==